=== PATIENT | male | born 1945 | race Caucasian/White ===

== ENCOUNTER 2019-07-01 10:36 | Outpatient (CLI) | payer MEDICARE, SELFPAY ==
[2019-07-01 13:49] LABS: Alanine Aminotransferase 37 U/L (4-50); Albumin Level 4.2 g/dL (3.5-5.1); Alkaline Phosphatase 97 U/L (38-126); Aspartate Amino Transferase 42 U/L (17-59); Bilirubin,Total 0.4 mg/dL (0.2-1.3); Blood Urea Nitrogen 14 mg/dL (9-20); Calcium 9.3 mg/dL (8.4-10.2); Carbon Dioxide 22 mmol/L (22-30); Chloride 96 mmol/L (98-107); Cholesterol 173 mg/dL (0-200); Estimated Glomerular Filt Rate > 60; Glucose 96 mg/dL (75-110); HDL Direct 96 mg/dL; Potassium 4.4 mmol/L (3.4-5.0); Sodium 131 mmol/L (137-145); Triglycerides 58 mg/dL (<150)
[2019-07-01 14:00] LABS: LDL Cholesterol Direct 82 mg/dL
[2019-07-01 14:18] LABS: Prostate Specific Antigen 1.7 ng/mL (< OR = 4.0)
== END 2019-07-01 10:37 | disposition home or self-care (01) ==
LOC: ANHWCLAB 10:43
PROVIDERS: PCP Internal Medicine; Visit Provider Internal Medicine
DX: E78.5 Hyperlipidemia, unspecified (principal); I10 Essential (primary) hypertension; Z12.5 Encounter for screening for malignant neoplasm of prostate; Z79.899 Other long term (current) drug therapy
CPT/HCPCS: 36415; 80053; 80061; 84153; G0103

== ENCOUNTER 2021-09-25 14:22 | Outpatient (CLI) | payer MEDICARE, SELFPAY ==
--- NOTE | ~2021-09-25 | CT_ITS ---
EXAMINATION: CT lung screening DATE: 09/25/2021 14:44 INDICATION: Personal history of nicotine dependence, current smoker with 128 pack year history TECHNIQUE: Computed tomography (CT) of the chest was performed without intravenous contrast. The dose -length product (DLP) was 83.46 mGy-cm. Automated exposure control and iterative reconstruction techn ique were employed. COMPARISON: 09/12/2016 FINDINGS: There is moderate emphysema. There is a stable 4 mm nodule of the right middle lobe. Calcif ied pulmonary nodules are consistent with old granulomatous disease. There is no pleural effusion or pneumothorax. The lungs are free of acute opacities. There is a chronic peripherally calcified mass o f the anterior mediastinum without significant change. There is moderate thoracic spondylosis. IMPRESSION: 1. Lung-RADS category 2: Benign appearance or behavior. Continue annual screening with noncontrast lo w-dose chest CT in 12 months. Reviewed, dictated and finalized at location A. IMPRESSION: 1. Lung-RADS category 2: Benign appearance or behavior. Continue annual screeni ng with noncontrast low-dose chest CT in 12 months.
== END 2021-09-25 14:23 | disposition home or self-care (01) ==
PROVIDERS: PCP Internal Medicine; Visit Provider Nurse Practitioner
DX: Z12.2 Encounter for screening for malignant neoplasm of respiratory organs (principal); Z87.891 Personal history of nicotine dependence
CPT/HCPCS: 71271

== ENCOUNTER 2022-03-21 09:06 | Outpatient (CLI) | payer MEDICARE, SELFPAY ==
[2022-03-21 13:20] LABS: Alanine Aminotransferase 36 U/L (6-50); Albumin Level 4.6 g/dL (3.5-5.1); Alkaline Phosphatase 116 U/L (38-126); Anion Gap 11 mmol/L (8-16); Aspartate Amino Transferase 92 U/L (17-59); Bilirubin,Total 0.8 mg/dL (0.2-1.3); Blood Urea Nitrogen 9 mg/dL (9-20); Calcium 8.7 mg/dL (8.4-10.2); Carbon Dioxide 20 mmol/L (22-30); Chloride 96 mmol/L (98-107); Cholesterol 180 mg/dL (0-200); Estimated Glomerular Filt Rate > 60; Glucose 77 mg/dL (65-110); HDL Direct 81 mg/dL; Potassium 4.2 mmol/L (3.4-5.0); Sodium 127 mmol/L (137-145); Triglycerides 65 mg/dL (<150)
[2022-03-21 13:32] LABS: LDL Cholesterol Direct 64 mg/dL
== END 2022-03-21 09:07 | disposition home or self-care (01) ==
LOC: ANHWCLAB 09:08
PROVIDERS: PCP Internal Medicine; Visit Provider Nurse Practitioner
DX: E78.5 Hyperlipidemia, unspecified (principal)
CPT/HCPCS: 36415; 80053; 80061

== ENCOUNTER 2022-09-30 09:11 | Outpatient (CLI) | payer MEDICARE, SELFPAY ==
[2022-09-30 21:33] LABS: LDL Cholesterol Direct 52 mg/dL
[2022-09-30 21:43] LABS: Alanine Aminotransferase 35 U/L (6-50); Albumin Level 4.2 g/dL (3.5-5.1); Alkaline Phosphatase 109 U/L (38-126); Anion Gap 6 mmol/L (8-16); Aspartate Amino Transferase 98 U/L (17-59); Bilirubin,Total 0.7 mg/dL (0.2-1.3); Blood Urea Nitrogen 9 mg/dL (9-20); Calcium 8.6 mg/dL (8.4-10.2); Carbon Dioxide 25 mmol/L (22-30); Chloride 96 mmol/L (98-107); Cholesterol 170 mg/dL (0-200); Estimated Glomerular Filt Rate > 60; Glucose 83 mg/dL (65-110); HDL Direct 110 mg/dL; Sodium 127 mmol/L (137-145); Triglycerides 48 mg/dL (<150)
[2022-09-30 21:52] LABS: Prostate Specific Antigen 61.6 ng/mL (< OR = 4.0)
== END 2022-09-30 09:12 | disposition home or self-care (01) ==
PROVIDERS: PCP Nurse Practitioner; Visit Provider Internal Medicine
DX: E78.5 Hyperlipidemia, unspecified (principal); I10 Essential (primary) hypertension; Z79.899 Other long term (current) drug therapy; Z12.5 Encounter for screening for malignant neoplasm of prostate
CPT/HCPCS: 36415; 80053; 80061; 84153; G0103

== ENCOUNTER 2022-10-24 07:58 | Outpatient (CLI) | payer MEDICARE, SELFPAY ==
--- NOTE | ~2022-10-24 | CT_ITS ---
EXAMINATION:CT lung screening DATE: 10/24/2022 08:29 INDICATION: Personal history of nicotine dependence. Current smoker with 90 pack year history. TECHNIQUE: Computed tomography (CT) of the chest was performed without intravenous contrast. Automate d exposure control and iterative reconstruction technique were employed. The dose-length product (DLP ) was 101.40 mGy-cm. COMPARISON: Chest CT 09/25/2021, 12/14/14, PET/CT 02/14/16 FINDINGS: There is moderate emphysema. There is a stable 4 mm nodule in right middle lobe. There is a calcified pleural plaque on the right. There is mild bronchiectasis in the inferior lungs. There is mucous plugging in right lower lobe. There is mild atelectasis in the lower lobes. Inferior lungs. No pleural effusion. The heart size is normal. There are coronary artery calcifications. No pericardial effusion. In the anterior mediastinum, there is a 3.0 x 1.8 cm mass with calcifications. There is mi ld bilateral gynecomastia. There is calcified atherosclerosis of the aorta and many of the other saima kj. There is a chronic 11 mm mass in left adrenal gland, likely an adenoma. There is mild thoracic spondylosis. IMPRESSION: 1. Lung-RADS category 2: Benign appearance or behavior. Continue annual screening with noncontrast lo w-dose chest CT in 12 months. 2. 3.0 cm anterior mediastinal mass, stable from 12/14/2014 and without increased activity on prior PE T, likely benign. The differential diagnosis includes germ cell tumor and thymoma. Reviewed, dictated and finalized at location A. IMPRESSION: 1. Lung-RADS category 2: Benign appearance or behavior. Continue annual screeni ng with noncontrast low-dose chest CT in 12 months. 2. 3.0 cm anterior mediastinal mass, stable from 12/14/2014 and without increase d activity on prior PET, likely benign. The differential diagnosis includes henny m cell tumor and thymoma.
--- NOTE | ~2022-10-24 | US_ITS ---
Limited Abdominal Sonogram: Real-time sonographic imaging of the right upper quadrant was performed. Clinical History: Abnormal findings of blood chemistry Findings: The liver appears normal with no evidence of mass lesion or bile duct dilatation. Main por christopher vein demonstrates normal direction of flow. The gallbladder is well distended, and appears normal with no evidence of gallstone or wall thickening. The common bile duct measures 5 mm. The pancreas is obscured by bowel gas shadowing. Impression: No significant abnormality seen. Reviewed, dictated and finalized at location M. Impression: No significant abnormality seen.
== END 2022-10-24 07:59 | disposition home or self-care (01) ==
PROVIDERS: PCP Nurse Practitioner; Visit Provider Nurse Practitioner
DX: R79.89 Other specified abnormal findings of blood chemistry (principal); Z87.891 Personal history of nicotine dependence
CPT/HCPCS: 71271; 76705

== ENCOUNTER 2023-04-16 09:21 | Outpatient (CLI) | payer MEDICARE, SELFPAY ==
[2023-04-16 13:34] LABS: Alanine Aminotransferase 34 U/L (6-50); Albumin Level 3.9 g/dL (3.5-5.1); Alkaline Phosphatase 120 U/L (38-126); Anion Gap 9 mmol/L (8-16); Aspartate Amino Transferase 70 U/L (17-59); Bilirubin,Total 0.5 mg/dL (0.2-1.3); Blood Urea Nitrogen 4 mg/dL (9-20); Calcium 8.5 mg/dL (8.4-10.2); Carbon Dioxide 25 mmol/L (22-30); Chloride 95 mmol/L (98-107); Cholesterol 135 mg/dL (0-200); Estimated Glomerular Filt Rate > 60; Glucose 90 mg/dL (65-110); HDL Direct 38 mg/dL; Potassium 4.1 mmol/L (3.4-5.0); Sodium 129 mmol/L (137-145); Triglycerides 65 mg/dL (<150)
[2023-04-16 13:45] LABS: LDL Cholesterol Direct 78 mg/dL
== END 2023-04-16 09:22 | disposition home or self-care (01) ==
LOC: ANHWCLAB 09:22
PROVIDERS: PCP Nurse Practitioner; Visit Provider Nurse Practitioner
DX: E78.5 Hyperlipidemia, unspecified (principal)
CPT/HCPCS: 36415; 80053; 80061

== ENCOUNTER 2023-04-26 19:16 | Inpatient (IN) | payer MEDICARE, SELFPAY ==
--- NOTE | ~2023-04-26 | XR_ITS ---
EXAMINATION: XR chest 2V Exam Date/Time: 04/26/2023 19:30 INTRANET SUPPORT HISTORY: SOB Comparison: 12/30/2017. RESULT: Lines, tubes, and devices: None. Lungs and pleura: Senescent and emphysematous change. No focal consolidation, pneumothorax, or effus ion. Cardiomediastinal silhouette: Stable. Calcified anterior mediastinal mass, unchanged. Other: No acute osseous or upper abdominal finding. IMPRESSION: No acute cardiopulmonary process. Reviewed, dictated and finalized at location K. ANET SUPPORT
--- NOTE | ~2023-04-26 | CT_ITS ---
EXAMINATION: CT brain wo con DATE: 04/27/2023 20:23 INDICATION: hyponatremia . TECHNIQUE: Computed tomography (CT) of the head was performed without intravenous contrast. The mA wa s adjusted according to patient size. Iterative reconstruction technique was employed. The dose-lengt h product was 681.00 mGy-cm. COMPARISON: None. FINDINGS: No acute intracranial hemorrhage or extra-axial fluid collection. No hydrocephalus, mass, or herniation. No acute ischemic infarct. Unremarkable dural venous sinus attenuation. No acute osseous abnormality. Smooth thinning of the left posterior frontal skull, with overlying sca lp thinning, resulting in a somewhat lentiform defect, likely related to remote procedure or trauma. Mucosal thickening and aerated secretions in the right maxillary sinus, the remaining aerated spaces are clear. Moderate atrophy and chronic white matter change. Atherosclerotic intracranial calcification. IMPRESSION: No acute intracranial process. Reviewed, dictated and finalized at location K. EMS MECHANIC
--- NOTE | ~2023-04-26 | CT_ITS ---
EXAMINATION: CTA chest PE protocol DATE: 04/26/2023 23:38 INDICATION: Shortness of breath TECHNIQUE: Computed tomography angiography (CTA) of the chest was performed with 100 mL Omnipaque-350 intravenous contrast timed to evaluate the pulmonary arteries. Coronal maximum intensity projection 3D-reconstructions were created by the technologist. The dose-length product (DLP) was 309.65 mGy-cm. Automated exposure control and iterative reconstruction technique were employed. COMPARISON: 10/24/2022 FINDINGS: The pulmonary arteries are well-opacified. No pulmonary embolism is identified. There is mo derate emphysema. There is a chronic 4 mm nodule of the right middle lobe. There is mild atelectasis in the lower lobes. No pleural effusion or pneumothorax. No pathologically enlarged thoracic lymph no manjula are identified. The heart size is normal. Again noted is a stable rim calcified mass of the anter ior mediastinum with differential as previously described. There is a healing anterolateral fracture of the right sixth rib. There is a new lytic lesion of T10 vertebral body on the right with depressio n of the mid superior endplate. IMPRESSION: 1. No pulmonary embolus identified. 2. Moderate emphysema. 3. New lytic lesion of the T10 vertebral body, possibly metastatic disease. Reviewed, dictated and finalized at location F. R AND DRAIN TECHNICIAN
[2023-04-26 19:19] VITALS: BP 105/56; PULSE 106; RESP 24; TEMP 36.5; O2SAT 100
--- NOTE | 2023-04-26 19:25 | ECG_ITS ---
Measurements Intervals [place] Rate: 100 P: 81 CA: 151 QRS: 72 QRSD: 95 T: 83 QT: 323 QTc: 418 Interpretive Statements SINUS TACHYCARDIA POSSIBLE ANTERIOR MYOCARDIAL INFARCTION , OF INDETERMINATE AGE Electronically Signed On 04-27-2023 10:26:52 AGRICULTURAL RESEARCH TECHNOLOGIST by Mando Baeza M.D.
[2023-04-26 20:43] LABS: Basophils Percent Auto 0.2 % (0.2-1.2); Eosinophils Absolute Auto 0.1 K/mm3 (0-0.3); Eosinophils Percent Auto 0.4 % (0-4.4); Hematocrit 27.3 % (42.0-52.0); Hemoglobin 9.2 g/dL (14.0-18.0); Immature Granulocyte Absolute 0.15 K/mm3 (0.00-0.031); Immature Granulocyte Percent A 1.1 % (0-0.5); Lymphocytes Absolute Auto 2.48 K/mm3 (0.9-3.2); Lymphocytes Percent Auto 17.8 % (18.3-44.2); Mean Corpuscular HGB Conc 33.7 g/dl (32-36); Mean Corpuscular Hemoglobin 30.8 pg (26-34); Mean Corpuscular Volume 91.3 fl (80-100); Monocytes Absolute Auto 0.7 K/mm3 (0.1-0.6); Monocytes Percent Auto 4.9 % (2.6-8.5); Neutrophils Absolute Auto 10.6 K/mm3 (1.3-6.7); Neutrophils Percent Auto 75.6 % (45.5-73.1); Platelet Count Result 274 k/mm3 (150-375); Red Blood Count 2.99 M/mm3 (4.6-6.20)
[2023-04-26 20:53] LABS: Alanine Aminotransferase 19 U/L (6-50); Albumin Level 3.5 g/dL (3.5-5.1); Alkaline Phosphatase 114 U/L (38-126); Anion Gap 7 mmol/L (8-16); Aspartate Amino Transferase 42 U/L (17-59); Bilirubin,Total 0.5 mg/dL (0.2-1.3); Blood Urea Nitrogen 42 mg/dL (9-20); Calcium 8.3 mg/dL (8.4-10.2); Carbon Dioxide 19 mmol/L (22-30); Chloride 97 mmol/L (98-107); Estimated CRCL calculation 93 ml/min; Estimated Glomerular Filt Rate > 60; Glucose 114 mg/dL (65-110); Potassium 4.3 mmol/L (3.4-5.0); Sodium 123 mmol/L (137-145)
[2023-04-26 21:19] VITALS: BP 102/54; PULSE 80; RESP 15; O2SAT 94
[2023-04-26] MEDS: ALBUTEROL SULFATE NEB 2.5 MG/3 ML INH 10 MG INHALATION (21:58)
[2023-04-26] MEDS: IPRATROPIUM BR 0.02% INH SOLN 0.5 MG/2.5 ML VIAL 1 MG INHALATION (21:58)
[2023-04-26] MEDS: SODIUM CHLORIDE 0.9% IV 1,000 ML 999 ML IV CONT (21:58)
[2023-04-26 22:04] LABS: Fractional Inspired Oxygen 21 %; HCO3 VBG 22.4 mEq/l (24.0-30.0); PO2 VBG 39.4 mmHg (35.0-45.0)
[2023-04-26 22:05] LABS: Device ROOM AIR; PCO2 VBG 30.4 mmHg (42.0-48.0); pH VBG 7.485 (7.300-7.400)
[2023-04-26 22:12] VITALS: PULSE 92; RESP 18
[2023-04-26 22:15] LABS: Appearance Urine Clear (Clear); Bilirubin Urine Negative (Negative); Blood Urine Negative (Negative); Color Urine Yellow (Yellow); Glucose Urine UA Negative (Negative); Ketones Urine Negative (Negative); Leukocyte Esterase Ur Negative LEU/UL (Negative); Nitrate Urine Negative (Negative); Protein Urine Negative (Negative); Specific Grav Ur 1.009 (1.001-1.035); Urobilinogen Urine 0.2 mg/dL (<2.0); pH Urine 6.5 (5.0-9.0)
[2023-04-26 22:20] LABS: Add Urine Microscopic? NO
[2023-04-26 22:28] LABS: Lactic Acid Reflex 0.9 mmol/L (0.7-2.0)
[2023-04-26 22:40] LABS: Troponin I < 0.012 ng/mL (0.000-0.034)
[2023-04-26 22:48] LABS: NT Pro B Type Natriuretic Pept 76 pg/mL (19.9-100)
[2023-04-26 22:49] LABS: Influenza A QL RT-PCR Negative (Negative); Influenza B QL RT-PCR Negative (Negative); RSV RNA, RT-PCR Negative (Negative); SARS-CoV-2 RNA PCR Negative (Negative)
[2023-04-26 23:00] VITALS: O2SAT 96
[2023-04-27] VITALS (16 sets, daily range): BP systolic 106–123; BP diastolic 52–72; PULSE 79–121; RESP 15–22; TEMP 36.2–36.4; O2SAT 95–100
--- NOTE | 2023-04-27 03:52 | ED.GENADULT ---
HPI - General Adult General Chief complaint: Shortness of Breath/Dyspnea Stated complaint: SOB Time Seen by Provider: 04/26/23 20:38 History of Present Illness HPI narrative: This is a 78-year-old male presenting to ED with 3 days of weakness, decreased oral intake and difficulty breathing. He has been staying worse for last 3 days. Patient states he was diagnosed with COPD 10 years ago but refused to take any medications. Patient denies fever chills chest pain abdominal pain nausea vomiting or diarrhea. He does note decreased oral intake although he cannot provide me a reason why. Denies any falls or trauma. Patient has a history of heavy alcohol use and quit cold turkey a month or 2 ago. Patient also notes asbestos exposure in the past. Related Data Home Medications Medication Instructions Recorded Confirmed aspirin 81 mg tablet,delayed 81 mg PO DAILY 12/20/20 10/09/22 release Allergies Allergy/AdvReac Type Severity Reaction Status Date / Time Penicillins Allergy Unknown hives Verified 10/09/22 07:32 [facility] Past Medical History Medical History COPD (chronic obstructive pulmonary disease) Family History Family History Sibling Hypertension Mother Family history of chronic obstructive pulmonary disease Father Family history of lung cancer Social History Social History Smoking packs per day: 1.5 Smoking cigarettes per day: 30.0 Years smoked: 64 Smoking pack-years: 96.00 Smoking status: Current every day smoker Tobacco type: cigarettes Second hand tobacco smoke exposure: Yes Alcohol intake: current Drinks per week: 70 Alcohol use details: beer Substance use: never Substance use type: does not use Lack of Transportation: No Lack of Food: Never True Current Housing: I Have Housing Concerned About Future Housing: No Difficulty Paying Gas/Electric Bills: No Difficulty Paying for Meds: No Currently Unemployed: No Education: Bachelor's Degree Difficulty w/ Childcare or Family Care: No Exam Narrative: APPEARANCE: No apparent distress. Head: atraumatic. EYES: EOMI, NOSE: Atraumatic NECK: Trachea midline RESPIRATORY: tachypneic, scattered expiratory wheezing CARDIOVASCULAR: RRR, ABDOMINAL: Non-distended, soft nontender MUSCULOSKELETAl: No obvious deformities NEURO: Alert. Moving 4/4 extremities SKIN:: Warm, dry. Normal color PSYCHIATRIC: Normal affect Course Vital Signs Vital signs: Vital Signs Temperature 97.7 F 04/26/23 19:19 Pulse Rate 106 H 04/26/23 19:19 Respiratory Rate 24 H 04/26/23 19:19 Blood Pressure 105/56 L 04/26/23 19:19 Pulse Oximetry 100 04/26/23 19:19 Oxygen Delivery Room Air 04/26/23 19:19 Temperature 97.7 F 04/26/23 19:19 Pulse Rate 97 04/27/23 03:17 Respiratory Rate 15 04/27/23 03:17 Blood Pressure 106/52 L 04/27/23 03:17 Pulse Oximetry 97 04/27/23 03:17 Oxygen Delivery Room Air 04/26/23 23:00 Medical Decision Making MDM Narrative Medical decision making narrative: -Course: 78-year-old male presenting with 3 days of shortness of breath and weakness. Patient was given breathing treatments with some improvement in his dyspnea. Broad workup was ordered which showed a hemoglobin of 9.2 with a previous hemoglobin of 15.2 in 2019. He also had an elevated BUN and after questioning the patient again he said he did have a dark sticky bowel movement yesterday which may represent melena. He is hemoccult positive. Anemia lab work ordered to evaluate for iron deficiency anemia versus anemia of chronic alcohol use. Symptomatic anemia would explain his symptoms. The rest of his workup unremarkable. Patient will be admitted for further management. -DDX includes but is not limited to: Viral illness, COPD before exacerbation, dehyd
--- NOTE | 2023-04-27 04:12 | PM.IMHP ---
H&P: HPI History of Present Illness Date/Time: 04/27/23 04:12 Chief Complaint: Generalized weakness Narrative: This is a 78-year-old male with past medical history significant for hypertension, tobacco dependence, alcohol dependence, patient has been sober for 5 weeks used to drink 2+ 30 pack beer a week, smokes 1 and pack of cigarettes most days for 60+ years. Patient presents to the emergency room due to generalized weakness, fatigue, low stamina, shortness of breath, had episode of melena, denies hematemesis denied bright red blood per rectum denies coffee-ground emesis states that it does not have much of an appetite pretty much eats canned food on most days. Preliminary workup in emergency room was significant for hemoglobin of 9, hematocrit 27, sodium 127, chloride 97 bicarb 19 EXAMINATION:? XR chest 2V Exam Date/Time:? 04/26/2023 19:30 MARKETING STRATEGY LEAD HISTORY: SOB ? Comparison:? 12/30/2017. RESULT: Lines, tubes, and devices:? None. Lungs and pleura:? Senescent and emphysematous change. No focal consolidation, pneumothorax, or effusion. Cardiomediastinal silhouette:? Stable. Calcified anterior mediastinal mass, unchanged. Other:? No acute osseous or upper abdominal finding. ? IMPRESSION: No acute cardiopulmonary process. EXAMINATION: CTA chest PE protocol DATE: 04/26/2023 23:38 INDICATION: Shortness of breath TECHNIQUE: Computed tomography angiography (CTA) of the chest was performed with 100 mL Omnipaque-350 intravenous contrast timed to evaluate the pulmonary arteries. Coronal maximum intensity projection 3D-reconstructions were created by the technologist. The dose-length product (DLP) was 309.65 mGy-cm. Automated exposure control and iterative reconstruction technique were employed. COMPARISON: 10/24/2022 FINDINGS: The pulmonary arteries are well-opacified. No pulmonary embolism is identified. There is moderate emphysema. There is a chronic 4 mm nodule of the right middle lobe. There is mild atelectasis in the lower lobes. No pleural effusion or pneumothorax. No pathologically enlarged thoracic lymph nodes are identified. The heart size is normal. Again noted is a stable rim calcified mass of the anterior mediastinum with differential as previously described. There is a healing anterolateral fracture of the right sixth rib. There is a new lytic lesion of T10 vertebral body on the right with depression of the mid superior endplate. IMPRESSION: 1. No pulmonary embolus identified. 2. Moderate emphysema. 3. New lytic lesion of the T10 vertebral body, possibly metastatic disease. Review of Systems Review of Systems: Shortness of breath, fatigue, poor appetite, melena. Constitutional: Constitutional: Denies chills, Reports fatigue, Denies fever(s), Reports poor appetite and Reports weakness Eyes: Eyes: Denies change in vision ENT: Denies dysphagia and Denies odynophagia Cardiovascular: Cardiovascular: Denies chest pain, Denies radiating jaw, neck or arm pain, Denies palpitations and Reports dyspnea Respiratory: Respiratory: Denies chest congestion and Reports cough Gastrointestinal: Gastrointestinal: Denies abdominal pain, Reports melena, Denies hematochezia, Denies coffee ground emesis, Denies dyspepsia, Denies heartburn, Denies nausea and Denies vomiting Genitourinary: Genitourinary: Denies flank pain Musculoskeletal: Musculoskeletal: Denies back pain Integumentary/Breasts: Skin/Breast: Denies rash Neurologic: Denies vertigo, Denies dizziness, Denies focal weakness and Denies Sensory deficit (Neuro) Psychiatric: Psychiatric: Reports no additional psychiatric complaints and Reports as per HPI Endocrine: Endocrine: Denies cold intolerance, Denies fatigue, Denies flushing, Denies heat intolerance, Denies polyphagia, Denies polydipsia and Denies palpitations Hematologic/Lymphatic: Hematologic/Lymphatic: Reports no additional hematologic/lymphatic complaints and Reports as per HPI Allergic/Immunologic: Allerg
--- NOTE | 2023-04-27 04:29 | ECG_ITS ---
Measurements Intervals [place] Rate: 93 P: 85 DE: 150 QRS: 28 QRSD: 97 T: 79 QT: 361 QTc: 450 Interpretive Statements SINUS RHYTHM SEPTAL MYOCARDIAL INFARCTION , OF INDETERMINATE AGE Electronically Signed On 04-27-2023 10:32:04 REINFORCED IRONWORKER by Mando Baeza M.D.
[2023-04-27 04:52] LABS: Transferrin 179 mg/dL (206-381)
[2023-04-27 04:58] LABS: Troponin I < 0.012 ng/mL (0.000-0.034)
[2023-04-27 04:59] LABS: Iron 59 ug/dL (49-181)
[2023-04-27 05:08] LABS: Percent Iron Saturation 24 % (20-50)
[2023-04-27 05:51] LABS: Folic Acid 7.9 ng/mL (2.76->20)
--- NOTE | 2023-04-27 07:00 | PC.NURSE ---
Pt brought up to the floor at 06:. A&Ox4. Pt ambulates independently at home, lives alone. NPO diet. Sister is the closest family pt reports. Call light within reach, pt comfortable, no c/o pain. Pt is on room air, he is on telemetry. Medication confirmed with the pt. No further questions.
[2023-04-27 07:53] LABS: Hematocrit 23.4 % (42.0-52.0)
[2023-04-27 07:57] LABS: Anion Gap 7 mmol/L (8-16); Blood Urea Nitrogen 28 mg/dL (9-20); Calcium 8.4 mg/dL (8.4-10.2); Carbon Dioxide 19 mmol/L (22-30); Chloride 103 mmol/L (98-107); Estimated CRCL calculation 81 ml/min; Estimated Glomerular Filt Rate > 60; Glucose 155 mg/dL (65-110); Potassium 3.8 mmol/L (3.4-5.0); Sodium 129 mmol/L (137-145)
[2023-04-27 09:08] LABS: Urea Random Urine 797 MG/DL
--- NOTE | 2023-04-27 10:51 | PM.IMPN ---
Progress Note: A&P Assessment and Plan (1) Anemia: Code(s): D64.9 - Anemia, unspecified Status: Acute Assessment and Plan: Heme positive stools in ER Iron studies and b12/folate unremarkable GI consult, ice chips and meds only until seen by GI Admit Hgb 9.2, recheck after IV fluids 8.0 IV pantoprazole BID (2) Hyponatremia: Code(s): E87.1 - Hypo-osmolality and hyponatremia Status: Chronic Assessment and Plan: Hyponatremia--> 123 on admit up to 129 with IV fluid bolus. Urine labs for sodium/creatinine/urea/osmolality drawn and Neprhology consulted. (3) Lytic bone lesions on xray: Code(s): M89.9 - Disorder of bone, unspecified Status: Acute Assessment and Plan: Lytic lesion T10 vertebral body, possibly metastatic disease per Radiology--will order abdomen/pelvis CT later, patient had contrast load on 04/26 @2338. (4) COPD (chronic obstructive pulmonary disease): Code(s): J44.9 - Chronic obstructive pulmonary disease, unspecified Status: Acute Assessment and Plan: Not actively wheezing Not on meds at home Improved after steroids and neb in ER, patient reports shortness of breath at home, none currently (5) Benign essential hypertension: Code(s): I10 - Essential (primary) hypertension Status: Chronic Assessment and Plan: Blood pressures on lower side, hold antihypertensives for now (6) PVD (peripheral vascular disease): Code(s): I73.9 - Peripheral vascular disease, unspecified Status: Chronic Assessment and Plan: Stable Plan Diet: NPO except ice chips and oral meds until after GI consult VTE prophylaxis: SCD, avoid pharmacologic due to concern for GI bleed GI prophylaxis: IV pantoprazole BID Code Status: Full Code Disposition: anticipate return home after acute illnesses addressed Time Spent With Patient Time with patient: 25 - 35 minutes Subjective Date/time seen: 04/27/23 10:51 Interval history: From previous chart: This is a 78-year-old male with past medical history significant for hypertension, tobacco dependence, alcohol dependence, patient has been sober for 5 weeks used to drink 2+ 30 pack beer a week, smokes 1 and pack of cigarettes most days for 60+ years.? Patient presents to the emergency room due to generalized weakness, fatigue, low stamina, shortness of breath, had episode of melena, denies hematemesis denied bright red blood per rectum denies coffee-ground emesis states that it does not have much of an appetite pretty much eats canned food on most days.? Preliminary workup in emergency room was significant for hemoglobin of 9, hematocrit 27, sodium 127, chloride 97 bicarb 19 04/27: Patient reports he stopped drinking on March 11, 2023. He reported fatigue and shortness of breath at home for a few days leading to him calling EMS to come to hospital yesterday. In ER he was found to have wheezing, lower Hgb than prior baseline and heme positive stools. Patient admitted for GI consult. 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 Review of Systems Review of Systems: Shortness of breath, fatigue, poor appetite, unsteadiness on feet All systems reviewed & are unremarkable except as noted in HPI and below Exam Narrative: Exam Narrative: Well developed well-nourished in no acute distress Skin is warm and dry without rash Head normocephalic atraumatic Eyes normal sclerae and conjunctivae Mouth normal lips teeth and gums Neck no nodes no thyromegaly no carotid bruits Axillae no nodes Back no CVA tenderness Lungs symmetric and clear to auscultation and percussion Heart regular rate and rhythm without rub or gallop Abdomen bowel sounds positive soft nontender, no HSM, masses, or bruits. Extremities no cyanosis, clubbing, or edema Pulses 2+ equal in radial arteries Psychological not anxious or depressed Neuro alert and
[2023-04-27] MEDS: PRAVASTATIN SODIUM 20 MG TABLET PO (11:03)
[2023-04-27] MEDS: PANTOPRAZOLE SODIUM IV 40 MG VIAL IV PUSH ×2 (11:03→20:58)
[2023-04-27] MEDS: THIAMINE HCL 200 MG/2 ML VIAL 100 MG IV PUSH (11:03)
[2023-04-27 12:01] LABS: Creatinine Urine 31.7 mg/dL
[2023-04-27 12:09] LABS: Sodium Urine Random 25 meq/L
--- NOTE | 2023-04-27 12:50 | PM.CNNEP ---
Assessment and Plan Assessment and plan (1) Hyponatremia: Code(s): E87.1 - Hypo-osmolality and hyponatremia Status: Resolved Assessment and Plan: the patient has hyponatremia. Looking back in the records it looks like he has had sodiums that have been low almost every time it has been checked going back to 2012. Seen most likely this may be related to his water drinking and alcohol use. The sodium is lower now than it was before. This may be related to his water drinking plus not eating very well the last couple of days. There are a few issues going on that need to be evaluated though. 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 Possibly this is related to his prostatic nodule that he discussed or possibly related to undiagnosed myeloma?. There is a diagnosis of a pulmonary lesion also but I am not sure of the story behind this. I will also check a SPEP, TSH and cortisol to make sure there is nothing else going on. his sodium is trending toward correcting too quickly. he says he is making a lot of urine. He may have something similar to beer drinkers potomania except that it is water instead of beer. I will give him DDAVP and repeat the sodium in a little bit. He is NPO now for a procedure and I will given D5W. (2) COPD (chronic obstructive pulmonary disease): Code(s): J44.9 - Chronic obstructive pulmonary disease, unspecified Status: Acute Assessment and Plan: He has a smoking history. He is to see Dr. Landrum in the past. (3) Benign essential hypertension: Code(s): I10 - Essential (primary) hypertension Status: Acute Assessment and Plan: He has hypertension. His blood pressure is under good control (4) Elevated PSA: Code(s): R97.20 - Elevated prostate specific antigen [PSA] Status: Acute Assessment and Plan: this may be related to the T10 metastatic lesion (5) Anemia: Code(s): D64.9 - Anemia, unspecified Status: Acute Assessment and Plan: hemoglobin is 8. He is getting this evaluated. History of Present Illness Reason for Consult Consult date: 04/27/23 Chief Complaint Chief complaint: Failure to Thrive History of Present Illness Narrative: Darryl is a very pleasant 78-year-old gentleman who has multiple medical problems including a past history of tobacco dependence but quit a while ago, alcohol dependence and quit 6 weeks ago, hypertension, COPD, and a prostate mass which was recently diagnosed. The patient says that about 6 weeks ago he decided to quit drinking. He was drinking about 60 beers in a week on at but sometimes would drink at a higher rate. This had been going on for decades. Six weeks ago he just decided to stop drinking and so did. He apparently did not have any withdrawal symptoms and has done okay since then. since then he has been drinking lots of water. In the last 2 or 3 days the patient has not had much to eat. He has continued to drink the water. He is not changed any his medications. He began to feel weak over the last day or 2 and so came to the emergency room and was found to have a sodium of 123, significant anemia, and so was admitted. The patient denies any narcotics, antidepressants, proton pump inhibitors,or diuretics. he does now have a history of cancer other than skin cancer on his scalp. However he did mention that he had a mass in his prostate which a urologist wanted to biopsy but he refused. He also was found to have a pulmonary nodule on chest x-ray this admission. the patient sees Nik Huff in the office every 6 months and thinks he is up-to-date with his cancer screening, however I do not see any indication that he has had a colonoscopy. Patient has never had a stroke or anything to suggest a brain tumor. He has COPD but no other lung abnormalities. Review of Systems Constitutional: Constitutional: Reports no additio
--- NOTE | 2023-04-27 13:12 | WPDGICN ---
Assessment and Plan Assessment and plan (1) Anemia: Code(s): D64.9 - Anemia, unspecified Status: Acute Assessment and Plan: his hemoglobin which was 15.2 in September is now down to 8.0. He has had black tarry stools for the last couple of days. Denies using NSAIDs, but does take an aspirin tablet 81 mg each morning. He has no history of ulcers. He denies heartburn or dysphagia. (2) Alcohol abuse: Code(s): F10.10 - Alcohol abuse, uncomplicated Status: Acute Assessment and Plan: He has never been told that he had liver disease due to alcohol use. (3) COPD (chronic obstructive pulmonary disease): Code(s): J44.9 - Chronic obstructive pulmonary disease, unspecified Status: Acute Assessment and Plan: This probably contributes to his chronic shortness of breath. He usually runs hemoglobin around 15 and now it is about half that which also exacerbates his breathing. (4) Dehydration determined by examination: Code(s): E86.0 - Dehydration Status: Acute Assessment and Plan: he is thirsty. or mucosa is dry. He has been NPO all day and I noticed that he does not have IV fluids. This probably explains his increase in BUN from 4 on April 07- on admission. Today it is 28 I will start him on a clear liquid diet and start IV fluids. (5) Transaminitis: Code(s): R74.01 - Elevation of levels of liver transaminase levels Status: Acute Assessment and Plan: AST which was 72 weeks ago is now down to normal. It actually was higher last September. This is likely due to his alcohol abuse Plan Rehydrate EGD in the morning continue to encourage abstinence from alcohol transfusion if hemoglobin drops to 7 or lower. GI Consult Note Consult date/time: 04/27/23 13:12 HPI: Darryl Murphy is a 78 year old male who was admitted yesterday to the emergency room because of fatigue. With walking around he would become quite short of breath. He lost his stamina. He also has noticed black stools that were like tar. The last few days when he wiped himself after a bowel movement he would need to wipe repeatedly as of black material was oozing out. He has not had abdominal pain he denies nausea vomiting. His appetite is so-so. He does not eat well. He admits to not preparing foods rather eating whenever he has on hand such as something in a can. He also admits to drinking alcohol regularly but apparently had stopped a couple weeks ago. He states that he has had a colonoscopy in the past about 5 years ago. He denies chronic heartburn denies dysphagia and denies generalized abdominal pain. Review of Systems Review of Systems: All systems reviewed & are unremarkable except as noted in HPI and below PMFSH Past Medical History Medical History COPD (chronic obstructive pulmonary disease) Family History Family History Sibling Hypertension Mother Family history of chronic obstructive pulmonary disease Father Family history of lung cancer Social History Social History Smoking packs per day: 1.5 Smoking cigarettes per day: 30.0 Years smoked: 60 Smoking pack-years: 90.00 Smoking status: Current every day smoker Tobacco type: cigarettes Second hand tobacco smoke exposure: Yes Alcohol intake: former Drinks per week: 70 Alcohol use details: beer Substance use: current Substance use type: does not use Lack of Transportation: No Lack of Food: Never True Current Housing: I Have Housing Concerned About Future Housing: No Difficulty Paying Gas/Electric Bills: No Difficulty Paying for Meds: No Currently Unemployed: No Education: Decline to Answer Difficulty w/ Childcare or Family Care: No Spiritual care concerns: No Meds Home Medication
[2023-04-27] MEDS: IPRATROPIUM BR 0.02% INH SOLN 0.5 MG/2.5 ML VIAL INHALATION ×2 (13:47→19:19)
[2023-04-27] MEDS: ALBUTEROL SULFATE NEB 2.5 MG/3 ML INH INHALATION ×2 (13:47→19:19)
[2023-04-27] MEDS: DESMOPRESSIN ACETATE 4 MCG/ML AMP 2 MCG IV PUSH (14:11)
[2023-04-27 14:35] LABS: Anion Gap 5 mmol/L (8-16); Blood Urea Nitrogen 21 mg/dL (9-20); Calcium 8.5 mg/dL (8.4-10.2); Carbon Dioxide 19 mmol/L (22-30); Chloride 105 mmol/L (98-107); Estimated CRCL calculation 95 ml/min; Estimated Glomerular Filt Rate > 60; Glucose 116 mg/dL (65-110); Potassium 4.2 mmol/L (3.4-5.0); Sodium 129 mmol/L (137-145)
[2023-04-27 15:05] LABS: Cortisol Random 1.87 ug/dL
[2023-04-27 15:52] LABS: Thyroid Stimulating Hormone Reflex 0.561 uIU/mL (0.465-4.68)
[2023-04-27] MEDS: DEXTROSE 5% 1,000 ML 1,000 ML 75 ML IV CONT (16:35)
[2023-04-27 19:21] LABS: Sodium 128 mmol/L (137-145)
[2023-04-27 19:57] LABS: Hematocrit 20.1 % (42.0-52.0); Hemoglobin 6.8 g/dL (14.0-18.0)
[2023-04-27] MEDS: oxyBUTYnin CHLORIDE 5 MG TABLET PO (20:58)
[2023-04-27] MEDS: SODIUM CHLORIDE 0.45% 1,000 ML 50 ML IV CONT (21:05)
[2023-04-27] MEDS: SODIUM CHLORIDE 0.9% IV 250 ML 30 ML IV CONT (21:05)
[2023-04-27] MEDS: TUBING, BLOOD PLUM PUMP TUBING 1 EACH XX (21:06)
[2023-04-27 23:27] LABS: Creatinine Urine 32.4 mg/dL; Total Protein Urine Random 7 mg/dL; Ur Ttl Prot Creatinine Ratio 0.22 mg/mg (0-0.20)
[2023-04-28] VITALS (23 sets, daily range): BP systolic 88–144; BP diastolic 40–85; PULSE 57–82; RESP 12–18; TEMP 35.9–36.9; O2SAT 94–99
[2023-04-28] MEDS: IPRATROPIUM BR 0.02% INH SOLN 0.5 MG/2.5 ML VIAL INHALATION ×2 (01:38→09:08)
[2023-04-28] MEDS: ALBUTEROL SULFATE NEB 2.5 MG/3 ML INH INHALATION ×2 (01:38→09:08)
[2023-04-28 06:53] LABS: Hematocrit 28.2 % (42.0-52.0); Hemoglobin 9.5 g/dL (14.0-18.0); Mean Corpuscular HGB Conc 33.7 g/dl (32-36); Mean Corpuscular Hemoglobin 31.1 pg (26-34); Mean Corpuscular Volume 92.5 fl (80-100); Mean Platelet Volume 8.2 fl (7.4-10.4); Platelet Count Result 181 k/mm3 (150-375); Red Blood Count 3.05 M/mm3 (4.6-6.20); Red Cell Distribution Width 12.6 % (11.5-14.5)
[2023-04-28 07:16] LABS: Anion Gap 4 mmol/L (8-16); Blood Urea Nitrogen 16 mg/dL (9-20); Calcium 8.1 mg/dL (8.4-10.2); Carbon Dioxide 23 mmol/L (22-30); Chloride 102 mmol/L (98-107); Estimated CRCL calculation 81 ml/min; Estimated Glomerular Filt Rate > 60; Glucose 86 mg/dL (65-110); Potassium 3.9 mmol/L (3.4-5.0); Sodium 129 mmol/L (137-145)
[2023-04-28 08:08] LABS: Basophils Percent Auto 0.2 % (0.2-1.2); Eosinophils Percent Auto 0.2 % (0-4.4); Hematocrit 25.5 % (42.0-52.0); Hemoglobin 9.4 g/dL (14.0-18.0); Immature Granulocyte Absolute 0.07 K/mm3 (0.00-0.031); Immature Granulocyte Percent A 0.7 % (0-0.5); Lymphocytes Absolute Auto 1.59 K/mm3 (0.9-3.2); Lymphocytes Percent Auto 16.7 % (18.3-44.2); Mean Corpuscular HGB Conc 36.9 g/dl (32-36); Mean Corpuscular Hemoglobin 35.3 pg (26-34); Mean Corpuscular Volume 95.9 fl (80-100); Mean Platelet Volume 8.5 fl (7.4-10.4); Monocytes Absolute Auto 0.7 K/mm3 (0.1-0.6); Monocytes Percent Auto 6.9 % (2.6-8.5); Neutrophils Absolute Auto 7.2 K/mm3 (1.3-6.7); Neutrophils Percent Auto 75.3 % (45.5-73.1); Platelet Count Result 187 k/mm3 (150-375); Red Blood Count 2.66 M/mm3 (4.6-6.20); White Blood Count 9.5 K/mm3 (4.5-10.0)
[2023-04-28 08:11] LABS: Alanine Aminotransferase 17 U/L (6-50); Albumin Level 3.1 g/dL (3.5-5.1); Alkaline Phosphatase 124 U/L (38-126); Aspartate Amino Transferase 40 U/L (17-59); Bilirubin,Total 0.8 mg/dL (0.2-1.3)
[2023-04-28] MEDS: PANTOPRAZOLE SODIUM IV 40 MG VIAL IV PUSH ×2 (10:00→20:50)
[2023-04-28] MEDS: THIAMINE HCL 200 MG/2 ML VIAL 100 MG IV PUSH (10:00)
[2023-04-28] MEDS: PRAVASTATIN SODIUM 20 MG TABLET PO (10:00)
--- NOTE | 2023-04-28 12:20 | PM.IMPN ---
Progress Note: A&P Assessment and Plan (1) Anemia: Code(s): D64.9 - Anemia, unspecified Status: Acute Assessment and Plan: Admit to regular medical floor Iron studies pending GI consult 04/28: s/p 2 units PRBC overnight, now Hgb 9.5. GI planning EGD today. (2) COPD (chronic obstructive pulmonary disease): Code(s): J44.9 - Chronic obstructive pulmonary disease, unspecified Status: Acute Assessment and Plan: Not actively wheezing Not on meds at home (3) PVD (peripheral vascular disease): Code(s): I73.9 - Peripheral vascular disease, unspecified Status: Chronic Assessment and Plan: Unchanged (4) Benign essential hypertension: Code(s): I10 - Essential (primary) hypertension Status: Chronic Assessment and Plan: Restart home meds as needed Plan EGD today Time Spent With Patient Time with patient: 25 - 35 minutes Subjective Date/time seen: 04/28/23 12:20 Interval history: From previous chart: This is a 78-year-old male with past medical history significant for hypertension, tobacco dependence, alcohol dependence, patient has been sober for 5 weeks used to drink 2+ 30 pack beer a week, smokes 1 and pack of cigarettes most days for 60+ years.? Patient presents to the emergency room due to generalized weakness, fatigue, low stamina, shortness of breath, had episode of melena, denies hematemesis denied bright red blood per rectum denies coffee-ground emesis states that it does not have much of an appetite pretty much eats canned food on most days.? Preliminary workup in emergency room was significant for hemoglobin of 9, hematocrit 27, sodium 127, chloride 97 bicarb 19 04/27: Patient reports he stopped drinking on March 11, 2023. He reported fatigue and shortness of breath at home for a few days leading to him calling EMS to come to hospital yesterday. In ER he was found to have wheezing, lower Hgb than prior baseline and heme positive stools. Patient admitted for GI consult. 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 04/28: Yesterday afternoon Hgb dropped to 6.8 on redraw which likely indicated active bleeding. He received 2 units PRBCs overnight. Today patient reported that he felt rested and well this morning. Hyponatremia seems stable at 129. Patient NPO since 0900 for EGD this afternoon. Patient may also require colonoscopy, either inpatient or outpatient, due to findings of lytic lesion on T10 vertebrae suspicious for metastasis. Patient denies any difficulty breathing today. Review of Systems Review of Systems: All systems reviewed & are unremarkable except as noted in HPI and below Exam Narrative: Exam Narrative: Well developed well-nourished in no acute distress Skin is warm and dry without rash Head normocephalic atraumatic Eyes normal sclerae and conjunctivae Mouth normal lips teeth and gums Neck no nodes no thyromegaly no carotid bruits Axillae no nodes Back no CVA tenderness Lungs symmetric and clear to auscultation and percussion Heart regular rate and rhythm without rub or gallop Abdomen bowel sounds positive soft nontender, no HSM, masses, or bruits. Extremities no cyanosis, clubbing, or edema Pulses 2+ equal in radial arteries Psychological not anxious or depressed Neuro alert and oriented x3 motor 5/5 cranial nerves 2-12 intact Objective Data Vital Signs Vital Signs: Vital Signs - 24 hr 04/27/23 13:48 04/27/23 13:50 04/27/23 13:59 Temperature Pulse Rate 88 91 Respiratory Rate 18 18 Blood Pressure Pulse Oximetry 96 Oxygen Delivery Room Air 04/27/23 14:00 04/27/23 16:00 04/27/23 19:19 Temperature 36.3 C L Pulse Rate 91 79 85 Respiratory Rate 18 18 Blood Pressure 106/58 L Pulse Oximetry 100 Oxygen Delivery 04/27/23 19:49 04/27/23 21:10 04/27/23 20:00 Temperature 36.2 C L Pulse Rate 87 86 Resp
--- NOTE | 2023-04-28 12:22 | PM.PNNEP ---
Progress Note: A&P Assessment and Plan (1) Hyponatremia: Code(s): E87.1 - Hypo-osmolality and hyponatremia Status: Chronic Assessment and Plan: improvement noted acute on chronic seems to run ~ 129 - 134 in the last few years however, he has had low sodiums as far back as 2012.... suspect chronic component due to excess water intake + alcohol acute component possible due to water drinking and no eating very well for the last few days however, other factors may be playing a role.... possible malignancy (lytic lesion on T12) pulmonary lesion TSH and cortisol okay SPEP and UPEP pending history of COPD follow trend of repeat sodium levels (2) Benign essential hypertension: Code(s): I10 - Essential (primary) hypertension Status: Chronic Assessment and Plan: reasonable control follow trend of hemodynamics (3) Anemia: Code(s): D64.9 - Anemia, unspecified Status: Acute Assessment and Plan: noted drop in H/H Gastroenterology following EGD later today Will continue to follow. Subjective Date/time seen: 04/28/23 12:22 Interval history: Follow-up for acute on chronic hyponatremia. Chart reviewed -- assuming care from Dr. Jacobs; PRBC transfusion yesterday due to low H/H with noted plan for EGD this afternoon; sodium relatively stable at this time with current interventions/therapy; no apparent distress. Exam Narrative: General: elderly but WD/WN male in NAD Heart: normal S1 and S2; no rub Lungs: clear to auscultation Abdomen: soft, nontender, nondistended, positive bowel sounds Extremities: no cyanosis or clubbing; no edema Skin: warm and dry Objective Data Vital Signs Vital Signs: Vital Signs Temp Pulse Resp BP Pulse Ox O2 Del Method 04/28/23 16:40 97.0 F L 71 12 144/76 H 94 04/28/23 14:00 96.9 F L 69 18 141/75 H 96 04/28/23 14:09 70 13 88/40 L 99 Room Air 04/28/23 14:02 72 15 95/56 L 97 Room Air 04/28/23 13:36 97.3 F L 73 18 125/62 97 Room Air 04/28/23 12:00 69 04/28/23 10:00 57 L 04/28/23 09:11 71 16 04/28/23 09:11 96 Room Air 04/28/23 04:00 62 04/28/23 04:23 97.5 F L 73 16 132/73 97 04/28/23 04:04 97.8 F 60 16 126/60 99 04/28/23 00:00 73 04/27/23 20:00 80 04/28/23 03:04 97.4 F L 71 16 119/63 97 04/28/23 02:47 98.4 F 75 16 110/67 97 04/28/23 02:16 97.5 F L 71 16 109/56 L 97 04/28/23 01:52 80 18 04/28/23 01:38 82 18 04/28/23 01:28 97.7 F 64 18 109/58 L 99 04/28/23 00:28 97.5 F L 71 18 114/63 96 04/28/23 00:09 97.9 F 70 16 106/56 L 98 04/27/23 20:00 Room Air 04/27/23 21:10 97.2 F L 86 22 H 110/53 L 95 04/27/23 19:49 87 18 04/27/23 19:19 85 18 Intake/Output Intake/Output: Intake & Output 04/25/23 04/26/23 04/27/23 04/28/23 23:59 23:59 23:59 23:59 Intake Total 9720 470 2474 Output Total 800 1500 Balance 1000 -20 300 Meds/Results Medications: Active Medications Generic Name Dose Route Start Last Admin Trade Name Freq PRN Reason Stop Dose Admin Albuterol 2.5 mg 04/28/23 20:00 Albuterol Sulfate Neb 2.5 Mg/3 Ml Inh INHALATION Q6HRT [facility] Ipratropium [place] 0.5 mg 04/28/23 20:00 Ipratropium Br 0.02% Inh Soln 0.5 Mg/2.5 Ml Vial INHALATION Q6HRT [facility] Radiology Results: ITS Impressions Chest X-Ray 04/26/23 20:13 IMPRESSION: No acute cardiopulmonary process. Chest CTA 04/27/23 09:36 IMPRESSION: 1. No pulmonary embolus identified. 2. Moderate emphysema. 3. New lytic lesion of the T10 vertebral body, possibly metastatic disease. Head CT 04/27/23 20:56 IMPRESSION: No acute intracranial process. Labs Labs: Laboratory Tests 04/28/23 06:39 04/28/23 06:39 Microbiology 04/26/23 22:03 Blood Blood Culture - Preliminary 04/26/23
[2023-04-28] MEDS: LACTATED RINGERS 1,000 ML 150 ML IV CONT (13:33)
--- NOTE | 2023-04-28 13:44 | WPDANESEPPF ---
Anes - Initial Pre Proc Eval Procedure: Operation Date: 04/28/23 14:00 Proposed Procedures p Esophagogastroduodenoscopy - Dilip Castro MD Date/Time: 04/28/23 13:44 Surgeon: Redd Chopra MD Pre Op Diagnosis: Failure to Thrive Patient Data Age: 78 Gender: M Height: 1.8 m Weight: 65.1 kg Last Vital Signs Temp 97.3 F L 04/28/23 13:36 Pulse 73 04/28/23 13:36 Resp 18 04/28/23 13:36 BP 125/62 04/28/23 13:36 Pulse Ox 97 04/28/23 13:36 O2 Del Method Room Air 04/28/23 13:36 Allergies Allergy/AdvReac Type Severity Reaction Status Date / Time Penicillins Allergy Unknown hives Verified 04/28/23 13:34 Home Medications Medication Instructions Recorded Confirmed Type aspirin 81 mg tablet,delayed 81 mg PO DAILY 12/20/20 04/27/23 History release triamcinolone acetonide 0.1 % 1 applic topical BID #15 grams 12/25/21 04/27/23 Rx topical cream cilostazol 100 mg tablet 100 mg PO BID #180 tabs 07/19/22 04/27/23 Rx clobetasol 0.05 % topical cream 1 applic topical DAILY #60 grams 10/09/22 04/27/23 Rx oxybutynin chloride 5 mg tablet See Rx Instructions .Route 02/24/23 04/27/23 Rx .COMPLEX #100 tabs amlodipine 5 mg tablet See Rx Instructions .Route 03/31/23 04/27/23 Rx .COMPLEX #100 tabs losartan 100 mg tablet 100 mg PO DAILY #90 tabs 04/07/23 04/27/23 Rx pravastatin 20 mg tablet 20 mg PO DAILY #90 tabs 04/08/23 04/27/23 Rx Laboratory Tests 04/27/23 04/27/23 04/27/23 08:52 08:52 08:52 WBC RBC Hgb Hct MCV MCH MCHC RDW Plt Count MPV Immature Gran % (Auto) Neut % (Auto) Lymph % (Auto) Coal % (Auto) Eos % (Auto) Baso % (Auto) Lymph # (Auto) Coal # (Auto) Eos # (Auto) Baso # (Auto) Abs Immat Gran (auto) Absolute Neuts (auto) Absolute Nucleated RBC Nucleated RBC % Sodium Potassium Chloride Carbon Dioxide Anion Gap BUN Creatinine Estim Creat Clear Calc Estimated GFR Glucose Serum Osmolality Calcium Total Bilirubin Direct Bilirubin AST ALT Alkaline Phosphatase Total Protein Albumin Slitb-8-Uktstihsz Frusm-5-Wzwylriic Wqyf-6-Bicikfbo Wtmm-3-Wadxvlpb Gamma Globulins Abnorm Protein Band 1 Abnorm Protein Band 3 PEP Interpretation TSH (Reflex) Random Cortisol U Random Total Protein 7 mg/dL Ur Random Sodium Cancelled Cancelled Urine Creatinine Cancelled 32.4 mg/dL Protein/Creat Ratio 2 0.22 H mg/mg (0-0.20) Blood Type Antibody Screen Crossmatch 04/27/23 04/27/23 04/27/23 14:15 19:05 21:20 WBC RBC Hgb 6.8 L* g/dL (14.0-18.0) Hct 20.1 L* % (42.0-52.0) MCV MCH MCHC RDW Plt Count MPV Immature Gran % (Auto) Neut % (Auto) Lymph % (Auto) Coal % (Auto) Eos % (Auto) Baso % (Auto) Lymph # (Auto) Coal # (Auto) Eos # (Auto) Baso # (Auto) Abs Immat Gran (auto) Absolute Neuts (auto) Absolute Nucleated RBC Nucleated RBC % Sodium 129 L mmol/L 128 L mmol/L (137-145) (137-145) Potassium 4.2 mmol/L (3.4-5.0) Chloride 105 mmol/L (98-107) Carb
[2023-04-28] MEDS: oxyBUTYnin CHLORIDE 5 MG TABLET PO (20:50)
[2023-04-28] MEDS: SODIUM CHLORIDE 0.45% 1,000 ML 50 ML IV CONT (21:10)
[2023-04-29] MEDS: IPRATROPIUM BR 0.02% INH SOLN 0.5 MG/2.5 ML VIAL INHALATION ×2 (02:55→08:06)
[2023-04-29] MEDS: ALBUTEROL SULFATE NEB 2.5 MG/3 ML INH INHALATION ×2 (02:55→08:06)
[2023-04-29 02:57] VITALS: PULSE 74; RESP 16
[2023-04-29 03:08] VITALS: PULSE 76; RESP 16
[2023-04-29 05:25] VITALS: BP 131/69; PULSE 69; RESP 18; TEMP 36.1; O2SAT 94
[2023-04-29 08:00] VITALS: PULSE 69; RESP 18
[2023-04-29 08:06] LABS: Hematocrit 29.5 % (42.0-52.0); Mean Corpuscular HGB Conc 33.9 g/dl (32-36); Mean Corpuscular Hemoglobin 31.3 pg (26-34); Mean Corpuscular Volume 92.2 fl (80-100); Mean Platelet Volume 8.4 fl (7.4-10.4); Platelet Count Result 206 k/mm3 (150-375); Red Cell Distribution Width 12.8 % (11.5-14.5); White Blood Count 7.1 K/mm3 (4.5-10.0)
[2023-04-29 08:29] LABS: Alanine Aminotransferase 22 U/L (6-50); Albumin Level 3.3 g/dL (3.5-5.1); Alkaline Phosphatase 130 U/L (38-126); Anion Gap 4 mmol/L (8-16); Aspartate Amino Transferase 37 U/L (17-59); Bilirubin,Total 0.7 mg/dL (0.2-1.3); Blood Urea Nitrogen 8 mg/dL (9-20); Calcium 8.2 mg/dL (8.4-10.2); Carbon Dioxide 27 mmol/L (22-30); Chloride 99 mmol/L (98-107); Estimated CRCL calculation 81 ml/min; Estimated Glomerular Filt Rate > 60; Glucose 83 mg/dL (65-110); Potassium 3.5 mmol/L (3.4-5.0); Sodium 130 mmol/L (137-145)
--- NOTE | 2023-04-29 10:30 | PM.DS ---
DS: Admitting Diagnosis Discharge Date 04/29/2023 Admitting Diagnosis anemia, adult failure to thrive, COPD, PVD, benign essential hypertension DS: Discharge Diagnosis Discharge Diagnosis (1) Anemia: Code(s): D64.9 - Anemia, unspecified Status: Acute (2) COPD (chronic obstructive pulmonary disease): Code(s): J44.9 - Chronic obstructive pulmonary disease, unspecified Status: Acute (3) PVD (peripheral vascular disease): Code(s): I73.9 - Peripheral vascular disease, unspecified Status: Chronic (4) Benign essential hypertension: Code(s): I10 - Essential (primary) hypertension Status: Chronic DS: Summary Hospital Course Reason for hospitalization: weakness shortness of breath anemia and melena Hospital Course: This is a 78-year-old male with past medical history significant for hypertension, tobacco dependence, alcohol dependence, patient has been sober for 5 weeks used to drink 2+ 30 pack beer a week, smokes 1 and pack of cigarettes most days for 60+ years.? Patient presents to the emergency room due to generalized weakness, fatigue, low stamina, shortness of breath, had episode of melena, denies hematemesis denied bright red blood per rectum denies coffee-ground emesis states that it does not have much of an appetite pretty much eats canned food on most days.? Preliminary workup in emergency room was significant for hemoglobin of 9, hematocrit 27, sodium 127, chloride 97 bicarb 19 04/27:? Patient reports he stopped drinking on March 11, 2023.? He reported fatigue and shortness of breath at home for a few days leading to him calling EMS to come to hospital yesterday.? In ER he was found to have wheezing, lower Hgb than prior baseline and heme positive stools.? Patient admitted for GI consult.? Also found to have hyponatremia at 123, prior history of hyponatremia which may have been chronic beer potomania.? 04/28:? Yesterday afternoon Hgb dropped to 6.8 on redraw which likely indicated active bleeding.? He received 2 units PRBCs overnight.? Today patient reported that he felt rested and well this morning.? Hyponatremia seems stable at 129.? Patient NPO since 0900 for EGD this afternoon.? Patient may also require colonoscopy, either inpatient or outpatient, due to findings of lytic lesion on T10 vertebrae suspicious for metastasis.? Patient denies any difficulty breathing today. 04/29: sodium has remained stable currently at 130 which is comparable to prior results. Hemoglobin remains stable and patient is tolerating full diet. Discussed with Dr. Castro and he will schedule for outpatient colonoscopy. There is concerned patient may have metastasis to T10 and my concern is that it may be colon cancer with mets. Patient is requesting discharge home. PT and OT saw him and signed off on his orders. We will initiate pantoprazole twice daily and stop patient's aspirin. Patient instructed to follow-up with primary care and Gastroenterology. He is in agreement with doing such. Status at Discharge Cognitive/behavioral status at discharge: Awake alert oriented and very pleasant Functional status at discharge: independent ambulation Overall status at discharge: patient is progressing back to baseline Time Spent with Patient Time attestation: Total time spent providing and/or coordinating discharge services: 35 minutes Time spent: Greater than 30 minutes Exam Narrative: Exam Narrative: Well developed well-nourished in no acute distress Skin is warm and dry without rash Head normocephalic atraumatic Eyes normal sclerae and conjunctivae Mouth normal lips teeth and gums Neck no nodes no thyromegaly no carotid bruits Axillae no nodes Back no CVA tenderness Lungs symmetric and clear to auscultation and percussion Heart regular rate and rhythm without rub or gallop Abdomen bowel sounds positive soft nontender, no HSM, masses, or bruits. Extremities no cyanosis, clubbing, or edema Pulses 2+ equa
[2023-04-29] MEDS: THIAMINE HCL 200 MG/2 ML VIAL 100 MG IV PUSH (10:40)
[2023-04-29] MEDS: PRAVASTATIN SODIUM 20 MG TABLET PO (10:40)
[2023-04-29] MEDS: PANTOPRAZOLE SODIUM IV 40 MG VIAL IV PUSH (10:40)
--- NOTE | 2023-04-29 14:51 | P.PNAN_ITS ---
Anes - Prog Note Post-Op Date/Time: 04/29/23 14:51 Cardiovascular status: normal Respiratory status: normal Airway patency: baseline Mental status: baseline Post-Op hydration status: normal Vital Signs: Last Vital Signs Temp 96.9 F L 04/29/23 05:25 Pulse 69 04/29/23 08:00 Resp 18 04/29/23 08:00 BP 131/69 04/29/23 05:25 Pulse Ox 94 04/29/23 05:25 O2 Del Method Room Air 04/28/23 20:00 Pain Score (VAS): 0/10 I/O: Intake & Output 04/28/23 04/29/23 04/29/23 23:59 07:59 15:59 Intake Total 240 575 480 Output Total 1350 3470 Balance -1110 -2890 480 Laboratory Tests 04/29/23 07:31 04/29/23 07:31 04/29/23 07:31 WBC 7.1 RBC 3.20 L Hgb 10.0 L Hct 29.5 L MCV 92.2 MCH 31.3 MCHC 33.9 RDW 12.8 Plt Count 206 MPV 8.4 Sodium 130 L Potassium 3.5 Chloride 99 Carbon Dioxide 27 Anion Gap 4 L BUN 8 L D Creatinine 0.60 L Estim Creat Clear Calc 81 Estimated GFR > 60 Glucose 83 Calcium 8.2 L Total Bilirubin 0.7 AST 37 ALT 22 Alkaline Phosphatase 130 H Total Protein 6.0 L Albumin 3.3 L Post-procedural complaints: none Patient Feedback: Patient satisfied with anesthetic care.
[2023-05-01 17:52] LABS: Alpha 1 Globulin 0.3 g/dL (0.2-0.3); Alpha 2 Globulin 0.6 g/dL (0.5-0.9); Beta 1 Globulin 0.3 g/dL (0.4-0.6); Gamma Globulin 0.8 g/dL (0.8-1.7); Protein, Total 5.3 g/dL (6.1-8.1)
[2023-05-01 21:38] LABS: Osmolality, Urine 430 mOsm/kg (50-1200)
== END 2023-04-29 14:10 | disposition home or self-care (01) | DRG 812 ==
LOC: ANHED 04-27 04:23 → ANH3MEDSUR 04-27 06:09
PROVIDERS: Internal Medicine Gastroenterology; Internal Medicine Nephrology; Admitting Provider Internal Medicine; Emergency Provider Emergency Medicine; PCP Nurse Practitioner; Visit Provider Nurse Practitioner
PROC: 0DJ08ZZ Inspection of Upper Intestinal Tract, Via Natural or Artificial Opening Endoscopic (ICD-10-PCS; CPT 43235; principal; 2023-04-28 14:00)
DX: D64.9 Anemia, unspecified (principal); E87.1 Hypo-osmolality and hyponatremia; K92.1 Melena; R62.7 Adult failure to thrive; Z68.20 Body mass index [BMI] 20.0-20.9, adult; J44.9 Chronic obstructive pulmonary disease, unspecified; I73.9 Peripheral vascular disease, unspecified; I10 Essential (primary) hypertension; F10.20 Alcohol dependence, uncomplicated; Z20.822 Contact with and (suspected) exposure to COVID-19; K21.9 Gastro-esophageal reflux disease without esophagitis; M89.9 Disorder of bone, unspecified; K44.9 Diaphragmatic hernia without obstruction or gangrene; K26.9 Duodenal ulcer, unspecified as acute or chronic, without hemorrhage or perforation; Z79.82 Long term (current) use of aspirin; Z87.891 Personal history of nicotine dependence; E86.0 Dehydration
CPT/HCPCS: 36415; 36430; 70450; 71046; 71275; 80048; 80053; 80076; 81003; 82533; 82570; 82607; 82728; 82746; 82803; 83540; 83550; 83605; 83880; 83930; 83935; 84155; 84156; 84165; 84295; 84300; 84443; 84466; 84484; 84540; 85014; 85018; 85025; 85027; 86850; 86900; 86901; 86923; 87040; 87081; 87637; 88305; 93005; 94640; 96361; 96374; 97165; 99285; A9270; C9113; J1100; J2597; J2704; J3411; J7030; J7050; J7070; J7120; P9016; Q9967

== ENCOUNTER 2023-05-07 06:50 | Outpatient (CLI) | payer MEDICARE, SELFPAY | END 2023-05-07 06:51 | disposition home or self-care (01) | PROVIDERS: PCP Nurse Practitioner; Visit Provider Nurse Practitioner | DX: R94.7 Abnormal results of other endocrine function studies (principal); E87.1 Hypo-osmolality and hyponatremia | CPT/HCPCS: 36415; 82533; 96372; J0834 ==

== ENCOUNTER 2023-05-29 08:27 | Outpatient (CLI) | payer MEDICARE, SELFPAY ==
[2023-05-29 17:27] LABS: Hematocrit 35.5 % (42.0-52.0); Hemoglobin 10.9 g/dL (14.0-18.0); Mean Corpuscular HGB Conc 30.7 g/dl (32-36); Mean Corpuscular Hemoglobin 29.6 pg (26-34); Mean Corpuscular Volume 96.5 fl (80-100); Mean Platelet Volume 7.9 fl (7.4-10.4); Platelet Count Result 333 k/mm3 (150-375); Red Blood Count 3.68 M/mm3 (4.6-6.20); Red Cell Distribution Width 12.6 % (11.5-14.5); White Blood Count 6.8 K/mm3 (4.5-10.0)
[2023-05-29 17:38] LABS: Alanine Aminotransferase 16 U/L (6-50); Albumin Level 3.8 g/dL (3.5-5.1); Alkaline Phosphatase 132 U/L (38-126); Anion Gap 7 mmol/L (8-16); Aspartate Amino Transferase 61 U/L (17-59); Bilirubin,Total 0.4 mg/dL (0.2-1.3); Blood Urea Nitrogen 5 mg/dL (9-20); Calcium 8.9 mg/dL (8.4-10.2); Carbon Dioxide 28 mmol/L (22-30); Chloride 94 mmol/L (98-107); Estimated Glomerular Filt Rate > 60; Glucose 88 mg/dL (65-110); Sodium 129 mmol/L (137-145)
== END 2023-05-29 08:28 | disposition home or self-care (01) ==
LOC: ANHWCLAB 08:28
PROVIDERS: PCP Nurse Practitioner; Visit Provider Nurse Practitioner
DX: E87.1 Hypo-osmolality and hyponatremia (principal); D64.9 Anemia, unspecified
CPT/HCPCS: 36415; 80053; 85027

== ENCOUNTER 2023-07-09 08:38 | Day surgery (SDC) | payer MEDICARE, SELFPAY ==
[2023-06-10 14:54] VITALS: BMI 20.9
--- NOTE | 2023-07-07 09:05 | SUR.PREOP ---
Patient called regarding upcoming procedure. Voicemail left regarding appointment times.
--- NOTE | 2023-07-08 18:19 | PM.HPGS ---
History of Present Illness History of Present Illness Consent: Risks, benefits, and alternatives have been discussed and questions answered. Patient agrees to proceed with procedure. Chief complaint: History colon polyps Narrative: Darryl Murphy is a 78 year old male Who had removal of 3 tubular adenomas when he had a colonoscopy 7 years ago. Was recently hospitalized for upper gastrointestinal bleeding which was due Review of Systems Review of Systems: All systems reviewed & are unremarkable except as noted in HPI and below PMFSH Past Medical History Medical History COPD (chronic obstructive pulmonary disease) Family History Family History Sibling Hypertension Mother Family history of chronic obstructive pulmonary disease Father Family history of lung cancer Social History Social History Smoking packs per day: 1.5 Smoking cigarettes per day: 30.0 Years smoked: 60 Smoking pack-years: 90.00 Smoking status: Current every day smoker Tobacco type: cigarettes Second hand tobacco smoke exposure: Yes Alcohol intake: former Drinks per week: 0 Alcohol use details: beer Substance use: never Substance use type: does not use Do You Feel Safe in your Home?: Yes Lack of Transportation: No Lack of Food: Never True Current Housing: I Have Housing Concerned About Future Housing: No Difficulty Paying Gas/Electric Bills: No Difficulty Paying for Meds: No Currently Unemployed: No Education: Decline to Answer Difficulty w/ Childcare or Family Care: No Living arrangements: alone Spiritual care concerns: No Meds Home Medications and Allergies Home Medications Medication Instructions Recorded Confirmed Type triamcinolone acetonide 0.1 % 1 applic topical BID #15 grams 12/25/21 07/09/23 Rx topical cream cilostazol 100 mg tablet 100 mg PO BID #180 tabs 07/19/22 07/09/23 Rx clobetasol 0.05 % topical cream 1 applic topical DAILY #60 grams 10/09/22 07/09/23 Rx oxybutynin chloride 5 mg tablet See Rx Instructions .Route 02/24/23 07/09/23 Rx .COMPLEX #100 tabs amlodipine 5 mg tablet See Rx Instructions .Route 03/31/23 07/09/23 Rx .COMPLEX #100 tabs pantoprazole 40 mg tablet,delayed 40 mg PO BID #60 tabs 06/03/23 07/09/23 Rx release losartan 100 mg tablet See Rx Instructions .Route 06/12/23 07/09/23 Rx .COMPLEX #100 tabs pravastatin 20 mg tablet 20 mg PO DAILY #90 tabs 06/30/23 07/09/23 Rx Allergies Allergy/AdvReac Type Severity Reaction Status Date / Time Penicillins Allergy Unknown hives Verified 07/09/23 08:50 Exam Resp: Auscultation: clear to auscultation bilaterally Cardio: Rate: regular rate Rhythm: regular rhythm GI: GI Palp: Yes Soft to palpation and No Tenderness to palpation present (GI) Assessment and Plan Assessment and plan (1) Personal history of colonic polyps: Code(s): Z86.010 - Personal history of colonic polyps Status: Acute Assessment and Plan: Colonoscopy with possible biopsy or polypectomy or cautery or injection of substances.
[2023-07-09 08:40] VITALS: BP 126/94; PULSE 95; RESP 16; TEMP 37.2; O2SAT 97; BMI 19.3
--- NOTE | 2023-07-09 08:56 | WPDANESEPPF ---
Anes - Initial Pre Proc Eval Procedure: Operation Date: 07/09/23 10:00 Proposed Procedures p Colonoscopy - Dilip Castro MD Date/Time: 07/09/23 08:56 Surgeon: Dilip Castro MD Pre Op Diagnosis: History colon polyps Patient Data Age: 78 Gender: M Height: 1.8 m Weight: 62.9 kg Last Vital Signs Temp 99.0 F 07/09/23 08:40 Pulse 95 07/09/23 08:40 Resp 16 07/09/23 08:40 BP 126/94 H 07/09/23 08:40 Pulse Ox 97 07/09/23 08:40 O2 Del Method Room Air 07/09/23 08:40 Allergies Allergy/AdvReac Type Severity Reaction Status Date / Time Penicillins Allergy Unknown hives Verified 07/09/23 08:50 Home Medications Medication Instructions Recorded Confirmed Type triamcinolone acetonide 0.1 % 1 applic topical BID #15 grams 12/25/21 07/09/23 Rx topical cream cilostazol 100 mg tablet 100 mg PO BID #180 tabs 07/19/22 07/09/23 Rx clobetasol 0.05 % topical cream 1 applic topical DAILY #60 grams 10/09/22 07/09/23 Rx oxybutynin chloride 5 mg tablet See Rx Instructions .Route 02/24/23 07/09/23 Rx .COMPLEX #100 tabs amlodipine 5 mg tablet See Rx Instructions .Route 03/31/23 07/09/23 Rx .COMPLEX #100 tabs pantoprazole 40 mg tablet,delayed 40 mg PO BID #60 tabs 06/03/23 07/09/23 Rx release losartan 100 mg tablet See Rx Instructions .Route 06/12/23 07/09/23 Rx .COMPLEX #100 tabs pravastatin 20 mg tablet 20 mg PO DAILY #90 tabs 06/30/23 07/09/23 Rx Patient hx anesthesia problems: none Family hx anesthesia problems: none Results Review: All pre-operative results and documents have been reviewed as part of the pre-operative evaluation. [facility] Past Medical History Medical History COPD (chronic obstructive pulmonary disease) Family History Family History Sibling Hypertension Mother Family history of chronic obstructive pulmonary disease Father Family history of lung cancer Social History Social History Smoking packs per day: 1.5 Smoking cigarettes per day: 30.0 Years smoked: 60 Smoking pack-years: 90.00 Smoking status: Current every day smoker Tobacco type: cigarettes Second hand tobacco smoke exposure: Yes Alcohol intake: former Drinks per week: 0 Alcohol use details: beer Substance use: never Substance use type: does not use Do You Feel Safe in your Home?: Yes Lack of Transportation: No Lack of Food: Never True Current Housing: I Have Housing Concerned About Future Housing: No Difficulty Paying Gas/Electric Bills: No Difficulty Paying for Meds: No Currently Unemployed: No Education: Decline to Answer Difficulty w/ Childcare or Family Care: No Living arrangements: alone Spiritual care concerns: No Anes - Eval Final PreProcedure Day of Procedure 07/09/23 08:56 Patient weight: normal Heart: regular rate and rhythm Lungs: clear to auscultation Airway: Mallampati scale class III Neurological: alert and oriented Last oral intake: >/= 8 hours ASA classification: III Emergent: no Anesthetic plan: proceed Anesthesia type and monitoring: general GIVS and standard monitoring Results Review: All pre-operative results and documents have been reviewed as part of the pre-operative evaluation. Informed Consent: The patient's anesthetic plan and its attendant risks and benefits were discussed with the patient/family/POA. Questions were solicited and answers provided to the satisfaction of the patient/family/POA.
[2023-07-09] MEDS: LACTATED RINGERS 1,000 ML 150 ML IV CONT (09:02)
[2023-07-09 10:25] VITALS: BP 89/46; PULSE 66; RESP 19; O2SAT 100
[2023-07-09 10:35] VITALS: BP 82/54; PULSE 74; RESP 21; O2SAT 97
[2023-07-09 10:45] VITALS: BP 98/55; PULSE 71; RESP 17; O2SAT 98
== END 2023-07-09 10:55 | disposition home or self-care (01) ==
PROVIDERS: PCP Nurse Practitioner; Visit Provider Internal Medicine Gastroenterology
PROC: 0DJD8ZZ Inspection of Lower Intestinal Tract, Via Natural or Artificial Opening Endoscopic (ICD-10-PCS; CPT 45378; principal; 2023-07-09 10:00)
DX: Z12.11 Encounter for screening for malignant neoplasm of colon (principal); D12.2 Benign neoplasm of ascending colon; D12.5 Benign neoplasm of sigmoid colon; K57.30 Diverticulosis of large intestine without perforation or abscess without bleeding; F17.210 Nicotine dependence, cigarettes, uncomplicated
CPT/HCPCS: 45380; 45385; 88305; J2371; J2704; J7120

== ENCOUNTER 2023-08-07 18:28 | Inpatient (IN) | payer MEDICARE, SELFPAY ==
--- NOTE | ~2023-08-07 | CT_ITS ---
EXAMINATION: CT diagnostic chest w con DATE: 08/11/2023 11:30 INDICATION: lymphoma TECHNIQUE: Computed tomography (CT) of the chest was performed with 100 mL Omnipaque-350 intravenous contrast. Additional 3D reconstructions utilizing coronal maximum intensity projection (MIP) were per formed. Automated exposure control and iterative reconstruction technique were employed. The dose-clotilde gth product was 147.19 mGy-cm. COMPARISON: 04/26/2023, 10/24/2022 and 09/25/2021 FINDINGS: Moderate emphysema. There is poor and loss in the bilateral lower lobes with linear and bandlike cons olidation most likely representing atelectasis. There is diffuse mild bronchial wall thickening with some bubbly mucus in the right bronchus intermedius. There is also mucous plugging in the bilateral l ower lobes and could not exclude superimposed pneumonia along with atelectasis. Unchanged 4 mm right middle lobe nodule. No pleural effusion. Heart size is normal. Atherosclerotic coronary artery calcif ications. Aortic valve calcification. No pericardial effusion. Thoracic aorta is normal in caliber wi th no dissection. Cluster of rim calcified nodules in the anterior mediastinum, the largest measuring up to 2.0 cm consistent with treated lymphoma. Along the right side of the rim calcified masses is a n additional nonperipherally calcified 1.7 x 0.9 cm soft tissue density which is remained unchanged s ishmael 09/25/2021. Significant interval increase in size of multiple superior mediastinal masses likely representing enl arged lymph nodes, the largest situated between the trachea. For reference a 2.7 x 2.4 cm mass betwee n the trachea and the medial margin of the aortic arch is increased from 2.1 x 1.2 cm to currently me asuring 2.7 x 2.4 cm. There is a larger and slightly more cephalad 4.1 x 2.9 cm mass which has also i ncreased in size since prior study. On the prior study this measured approximately 2.4 x 1.4 cm howev er position of measurement is significantly limited on the prior study due to dense streak artifact f rom contrast in the left brachiocephalic vein. The enlarged lymphadenopathy extends cephalad into the left supraclavicular region and along the caudal aspect of the bilateral jugular chains. Findings ar e consistent with progression of known lymphoma. There is new patchy sclerosis surrounding a previously noted lytic lesion at the T10 vertebral body w ith slight increase in overlying superior endplate compression fracture. There multiple new regions o f patchy lucency and/or sclerosis involving the majority the vertebrae in the thoracic and visualized lower cervical and upper thoracic spine including both the vertebral bodies and posterior elements. Additional subtle patchy lucency and sclerosis throughout multiple ribs and also involving the sternu m and bilateral scapulae. There is some increased soft tissue density surrounding the healing fractur e of the anterolateral right sixth rib. IMPRESSION: 1. Significant interval progression of bulky lymphadenopathy in the superior mediastinum, the inferio r bilateral jugular chains and left supraclavicular region consistent with progression of reported kn own lymphoma. 2. Progression in multiple lytic and/or sclerotic lesions throughout numerous bones in the spine and thorax most likely related to progression of reported lymphoma. 3. Moderate emphysema with consolidation in the bilateral lower lobes with configuration and associat ed volume loss favoring atelectasis although there is also some bronchial wall thickening with mucous plugging in the bilateral lower lobes and superimposed bronchitis and/or pneumonia cannot be exclude d. Reviewed, dictated and finalized at location A. IMPRESSION: 1. Significant interval progression of bulky lymphadenopathy in the superior me diastinu
--- NOTE | ~2023-08-07 | CT_ITS ---
CT of the Abdomen and Pelvis: Indication: Back pain Technique: 2.5 mm axial scans were obtained through the abdomen and pelvis following intravenous adm inistration of 100 cc of Omnipaque 350. Dose reduction technique was used on this scan by utilizing a utomated exposure control and iterative reconstruction technique. The dose-length product (DLP) was 2 51.40 mGy-cm. Findings: Scans through the lung bases demonstrate focal left basilar atelectatic change. The liver, spleen, pancreas, gallbladder, adrenals and kidneys are within normal limits. There are at herosclerotic calcifications of the aorta. There is extensive periaortic lymphadenopathy, with additi onal lymphadenopathy along the bilateral external iliac chains. No bowel obstruction or bowel wall thickening. Prominent stool suggests constipation. Images through the pelvis were performed. Urinary bladder unremarkable. Prostate gland enlarged. No d efinite ascites. There are multiple sclerotic osseous lesions, with extensive involvement of the T12, L4, L5 vertebral bodies in particular, with additional smaller scattered lesions in the spine. There is probable mild pathologic compression fracture of T12. There are also multiple sclerotic ill-defined lesions throug hout the iliac/pelvic bones bilaterally. Impression: Extensive lymphadenopathy along the periaortic and external iliac chain regions. Findings could refle ct lymphoma versus other metastatic disease. Extensive sclerotic osseous metastatic disease. This could reflect osseous involvement of lymphoma ve rsus other metastatic disease. Probable mild pathologic compression fracture of T12. Constipation. Enlarged prostate gland. Reviewed, dictated and finalized at [facility]. Impression: Extensive lymphadenopathy along the periaortic and external iliac chain regions . Findings could reflect lymphoma versus other metastatic disease. Extensive sclerotic osseous metastatic disease. This could reflect osseous invo lvement of lymphoma versus other metastatic disease. Probable mild pathologic compression fracture of T12. Constipation. Enlarged prostate gland.
--- NOTE | ~2023-08-07 | US_ITS ---
EXAMINATION: US biopsy lymph node DATE: 08/12/2023 12:47 INDICATION: Left supraclavicular lymphadenopathy TECHNIQUE: The procedure including the risks and benefits was discussed with the patient. Risks discu ssed included bleeding and infection. The patient understood the risks and agreed to proceed. The sk in overlying the left supraclavicular base of the neck was prepped and draped in usual sterile fashio n. Anesthetic was administered with 1% lidocaine subcutaneously. An 18 gauge core biopsy needle was advanced under continuous ultrasound observation to the lesion of interest. 3 core biopsy specimens were obtained and placed in RPMI media. Additional 4 core biopsy specimens were obtained with a 14-g auge core needle biopsy under continuous ultrasound observation, 2 placed in RPMI media and 2 in form sixto. The needle was removed and the entry site was cleaned and dressed. Post procedure ultrasound demonstrated no hemorrhage. FINDINGS: Ultrasound images demonstrate multiple round hypoechoic left supraclavicular masses consist ent with enlarged lymph nodes with effacement of the typical central fatty queenie. Subsequent images de monstrate the biopsy needle advanced into the lymph nodes which measure 2.5 cm and 1.8 cm diameter.. IMPRESSION: 1. Successful Ultrasound-guided biopsy of a pair of enlarged left supraclavicular lymph nodes. Reviewed, dictated and finalized at location A. IMPRESSION: 1. Successful Ultrasound-guided biopsy of a pair of enlarged left supraclavicul ar lymph nodes.
--- NOTE | ~2023-08-07 | NM_ITS ---
EXAMINATION: NM bone scan whole body DATE: 08/11/2023 14:50 INDICATION: Osseous lesions on prior CT TECHNIQUE: 26.2 mCi Tc-99m HDP was administered intravenously. Delayed whole-body scintigrams were o btained. COMPARISON: CT dated 08/11/2023 FINDINGS/IMPRESSION: There are numerous scattered foci of increased bone uptake throughout the axial and appendicular skel eton, those in the chest, abdomen or pelvis corresponding with multiple lytic and/or sclerotic bone l esions suspicious for metastatic disease. Reviewed, dictated and finalized at location A.
--- NOTE | ~2023-08-07 | CT_ITS ---
EXAMINATION: CT lumbar spine wo con DATE: 08/07/2023 21:43 INDICATION: Low back pain TECHNIQUE: Computed tomography (CT) of the lumbar spine was performed without intravenous contrast. T he dose-length product (DLP) was 224.14 mGy-cm. Iterative reconstruction was used. COMPARISON: 04/26/2023 FINDINGS: There are 3 mm of retrolisthesis of L5 on S1. The lumbar vertebral body heights are maintai dominic. There is moderate loss of intervertebral disc space height at L4-5 and L5-S1. There are lytic an d sclerotic lesions of the visualized lower thoracic and lumbar vertebral bodies as well as the sacru m and visualized iliac bones. There is pelvic and retroperitoneal lymphadenopathy. IMPRESSION: 1. Moderate to severe lumbar spondylosis. 2. Lytic and sclerotic lesions of the visualized osseous structures with pelvic and retroperitoneal l ymphadenopathy, consistent with metastatic disease. Reviewed, dictated and finalized at location F. IMPRESSION: 1. Moderate to severe lumbar spondylosis. 2. Lytic and sclerotic lesions of the visualized osseous structures with pelvic and retroperitoneal lymphadenopathy, consistent with metastatic disease.
[2023-08-07 18:34] VITALS: BP 127/78; PULSE 82; RESP 18; TEMP 36.4; O2SAT 100
[2023-08-07] MEDS: CYCLOBENZAPRINE HCL 10 MG TABLET PO (21:14)
[2023-08-07] MEDS: KETOROLAC 30 MG/ML VIAL (*BKC) IM (21:14)
[2023-08-07] MEDS: HYDROcodone/acetaminophen (*CRX) 5-325 MG TABLET 1 TAB PO (21:14)
--- NOTE | 2023-08-07 22:31 | ED.BACK ---
HPI - Back Pain/Injury General Chief Complaint: Back Pain/Injury Stated Complaint: BACK PAIN Time Seen by Provider: 08/07/23 20:09 History of Present Illness HPI Narrative: 78-year-old male history of chronic back pain presented to the emergency department for evaluation worsening back pain that worsened last night. Patient does have a history of chronic back pain and denies any recent falls or injuries. Patient states the back pain worsened while he was sleeping and has been uncontrolled today. Patient denies any associated numbness or weakness. Patient is comfortable during the examination. Related Data Home Medications Medication Instructions Recorded Confirmed amlodipine 5 mg tablet 5 mg PO DAILY 08/08/23 08/08/23 losartan 100 mg tablet 100 mg PO DAILY 08/08/23 08/08/23 oxybutynin chloride 5 mg tablet 5 mg PO DAILY 08/08/23 08/08/23 Allergies Allergy/AdvReac Type Severity Reaction Status Date / Time Penicillins Allergy Unknown hives Verified 08/07/23 20:11 Review of Systems Review of Systems: All systems reviewed & are unremarkable except as noted in HPI and below PMFSH Past Medical History Medical History (Updated 08/08/23 @ 10:25 by Margareth Childers APRN) COPD (chronic obstructive pulmonary disease) Hyponatremia Family History Family History Sibling Hypertension Mother Family history of chronic obstructive pulmonary disease Father Family history of lung cancer Social History Social History Smoking packs per day: 1.5 Smoking cigarettes per day: 30.0 Years smoked: 60 Smoking pack-years: 90.00 Smoking status: Current every day smoker Tobacco type: cigarettes Second hand tobacco smoke exposure: Yes Alcohol intake: former Drinks per week: 70 Alcohol use details: beer Substance use: current Substance use type: does not use Do You Feel Safe in your Home?: Yes Lack of Transportation: No Lack of Food: Never True Current Housing: I Have Housing Concerned About Future Housing: No Difficulty Paying Gas/Electric Bills: No Difficulty Paying for Meds: No Currently Unemployed: No Education: Decline to Answer Difficulty w/ Childcare or Family Care: No Living arrangements: alone Spiritual care concerns: No Exam Narrative: APPEARANCE: Uncomfortable appearing HEAD: normocephalic, atraumatic. EYES: PERRLA/EOMI, conjunctivae clear. NOSE: Normal no drainage EARS:TMS clear with good light reflex. THROAT: Pharynx clear, no exudate. NECK: Supple. No adenopathy, no masses. RESPIRATORY: Airway patent, respirations nonlabored. Clear to auscultation bilaterally, no rales, rhonchi, wheezing. CARDIOVASCULAR: Regular rate and rhythm without murmurs rubs or gallops. ABDOMINAL: Soft, nontender, nondistended, normal bowel sounds MUSCULOSKELETAL: Lower back tenderness to palpation NEURO: Alert. Cranial nerves II through XII intact. Grossly intact Course Course Emergency Course: Patient was admitted for hyponatremia and intractable back pain Vital Signs Vital signs: Vital Signs Temperature 97.6 F 08/07/23 18:34 Pulse Rate 82 08/07/23 18:34 Respiratory Rate 18 08/07/23 18:34 Blood Pressure 127/78 08/07/23 18:34 Pulse Oximetry 100 08/07/23 18:34 Oxygen Delivery Room Air 08/07/23 18:34 Temperature 98.6 F 08/08/23 20:24 Pulse Rate 80 08/08/23 20:24 Respiratory Rate 16 08/08/23 20:24 Blood Pressure 131/61 08/08/23 20:24 Pulse Oximetry 93 08/08/23 20:24 Oxygen Delivery Room Air 08/08/23 20:00 MDM - Back Pain/Injury MDM Narrative Medical decision making narrative: 78-year-old male present to ED for evaluation of intractable back pain. CT scan showed lytic lesions. Patient does have a history of these lesions and no underlying metastatic disease was found his previous workup. Attempted to control the pat
--- NOTE | 2023-08-07 22:48 | PM.IMHP ---
H&P: HPI History of Present Illness Date/Time: 08/07/23 22:48 Chief Complaint: back pain Narrative: This is a 78-year-old male with past medical history significant for COPD, alcohol dependence, lytic bone lesions. Presents to the emergency room due to back pain, poor per orally intake, daughter provides most of the history,patient with very limited functioning status due to pain, sits most of the day. Preliminary workup was significant for chemistry panel with a sodium 116. patient denies any fevers, rigors, chills, nausea, vomiting, diarrhea, no cough, no sputum production. CT of lumbar spine showed numerous lytic lesions. EXAMINATION: CT lumbar spine wo con DATE: 08/07/2023 21:43 INDICATION: Low back pain TECHNIQUE: Computed tomography (CT) of the lumbar spine was performed without intravenous contrast. The dose-length product (DLP) was 224.14 mGy-cm. Iterative reconstruction was used. COMPARISON: 04/26/2023 FINDINGS: There are 3 mm of retrolisthesis of L5 on S1. The lumbar vertebral body heights are maintained. There is moderate loss of intervertebral disc space height at L4-5 and L5-S1. There are lytic and sclerotic lesions of the visualized lower thoracic and lumbar vertebral bodies as well as the sacrum and visualized iliac bones. There is pelvic and retroperitoneal lymphadenopathy. IMPRESSION: 1. Moderate to severe lumbar spondylosis. 2. Lytic and sclerotic lesions of the visualized osseous structures with pelvic and retroperitoneal lymphadenopathy, consistent with metastatic disease. Review of Systems Review of Systems: back pain, poor appetite Constitutional: Constitutional: Reports poor appetite Eyes: Eyes: Denies change in vision ENT: Denies dysphagia, Denies vertigo, Denies dizziness and Denies odynophagia Cardiovascular: Cardiovascular: Denies chest pain, Denies radiating jaw, neck or arm pain and Denies palpitations Respiratory: Respiratory: Denies chest congestion and Denies cough Gastrointestinal: Gastrointestinal: Denies abdominal pain, Denies diarrhea, Denies nausea and Denies vomiting Genitourinary: Genitourinary: Denies dysuria Musculoskeletal: Musculoskeletal: Reports back pain Integumentary/Breasts: Skin/Breast: Denies rash Neurologic: Denies focal weakness and Denies Sensory deficit (Neuro) Psychiatric: Psychiatric: Reports no additional psychiatric complaints and Reports as per HPI Endocrine: Endocrine: Denies cold intolerance, Denies fatigue, Denies flushing, Denies heat intolerance, Denies polyphagia, Denies polydipsia, Denies polyuria and Denies palpitations Hematologic/Lymphatic: Hematologic/Lymphatic: Reports no additional hematologic/lymphatic complaints and Reports as per HPI Allergic/Immunologic: Allergic/Immunologic: Reports no additional allergic/immunologic complaints and Reports as per HPI PMFSH Past Medical History Medical History (Updated 08/09/23 @ 09:39 by Vilma Sue PA-C) COPD (chronic obstructive pulmonary disease) Essential hypertension Hyperlipidemia Hyponatremia Peripheral arterial disease Family History Family History Sibling Hypertension Mother Family history of chronic obstructive pulmonary disease Father Family history of lung cancer Social History Social History Smoking packs per day: 1.5 Smoking cigarettes per day: 30.0 Years smoked: 60 Smoking pack-years: 90.00 Smoking status: Current every day smoker Tobacco type: cigarettes Second hand tobacco smoke exposure: Yes Alcohol intake: former Drinks per week: 70 Alcohol use details: beer Substance use: current Substance use type: does not use Do You Feel Safe in your Home?: Yes Lack of Transportation: No Lack of Food: Never True Current Housing: I Have Housing Concerned About Future Housing: No Difficulty Paying Gas/Electric Bills:
[2023-08-07 22:50] LABS: Basophils Absolute Auto 0.1 K/mm3 (0.0-0.1); Basophils Percent Auto 0.6 % (0.2-1.2); Eosinophils Absolute Auto 0.2 K/mm3 (0-0.3); Eosinophils Percent Auto 1.6 % (0-4.4); Hematocrit 35.7 % (42.0-52.0); Hemoglobin 12.2 g/dL (14.0-18.0); Immature Granulocyte Absolute 0.15 K/mm3 (0.00-0.031); Immature Granulocyte Percent A 1.2 % (0-0.5); Lymphocytes Absolute Auto 1.57 K/mm3 (0.9-3.2); Lymphocytes Percent Auto 12.3 % (18.3-44.2); Mean Corpuscular HGB Conc 34.2 g/dl (32-36); Mean Corpuscular Volume 81.9 fl (80-100); Mean Platelet Volume 7.8 fl (7.4-10.4); Monocytes Absolute Auto 1.2 K/mm3 (0.1-0.6); Monocytes Percent Auto 9.7 % (2.6-8.5); Neutrophils Absolute Auto 9.5 K/mm3 (1.3-6.7); Neutrophils Percent Auto 74.6 % (45.5-73.1); Platelet Count Result 237 k/mm3 (150-375); Red Blood Count 4.36 M/mm3 (4.6-6.20); White Blood Count 12.7 K/mm3 (4.5-10.0)
[2023-08-07] MEDS: HYDROmorphone HCL INJ (*CRX) 1 MG/ML SYR 0.5 MG IV PUSH (22:50)
[2023-08-07 23:12] VITALS: BP 123/65; PULSE 65; RESP 15; TEMP 36.5; O2SAT 96
[2023-08-07 23:35] LABS: Alanine Aminotransferase 16 U/L (6-50); Alkaline Phosphatase 268 U/L (38-126); Anion Gap 5 mmol/L (8-16); Aspartate Amino Transferase 86 U/L (17-59); Bilirubin,Total 0.6 mg/dL (0.2-1.3); Blood Urea Nitrogen 7 mg/dL (9-20); Calcium 9.6 mg/dL (8.4-10.2); Carbon Dioxide 24 mmol/L (22-30); Chloride 87 mmol/L (98-107); Estimated CRCL calculation 129 ml/min; Estimated Glomerular Filt Rate > 60; Glucose 93 mg/dL (65-110); Potassium 4.4 mmol/L (3.4-5.0); Sodium 116 mmol/L (137-145)
--- NOTE | 2023-08-07 23:56 | PC.NURSE ---
This RN received critical sodium level on this patient upon bed assignment upstairs. Provider made aware and fluid bolus and repeat bmp ordered.
[2023-08-08] VITALS (9 sets, daily range): BP systolic 97–140; BP diastolic 60–75; PULSE 64–101; RESP 12–16; TEMP 36.4–37.1; O2SAT 90–100; BMI 22.3
--- NOTE | 2023-08-08 00:12 | PC.NURSE ---
YESSENIA from Dr. Chopra to bolus 3% normal saline 100mL
[2023-08-08] MEDS: SODIUM CHLORIDE 3% 100 ML IV CONT ×2 (00:41→03:33)
[2023-08-08 02:23] LABS: Anion Gap 7 mmol/L (8-16); Blood Urea Nitrogen 7 mg/dL (9-20); Calcium 9.2 mg/dL (8.4-10.2); Carbon Dioxide 19 mmol/L (22-30); Chloride 90 mmol/L (98-107); Estimated CRCL calculation 129 ml/min; Estimated Glomerular Filt Rate > 60; Glucose 83 mg/dL (65-110); Potassium 4.4 mmol/L (3.4-5.0); Sodium 116 mmol/L (137-145)
--- NOTE | 2023-08-08 02:27 | ADMGEN ---
This patient, Darryl Murphy, was admitted to [facility] Surg Room 306-02. Patient/family oriented to hospital policies and general routines including ID bracelet, bed and alarms, visiting hours, pain management, procedures, bathroom and other care routines, personal items, smoking policy, room service/diet, and visiting hours. Information on how to activate the Rapid Response Team has been discussed. Patient/Family are encouraged to report perceived risks to care and to ask questions if they do not understand what they are told or what they should do.
[2023-08-08] MEDS: MORPHINE SULFATE (*CRX) 2 MG/ML INJ IV PUSH (03:01)
[2023-08-08] MEDS: dexAMETHasone SOD PHOS INJ 10 MG/ML 1 ML VIAL IV PUSH (03:30)
[2023-08-08 07:43] LABS: Anion Gap 3 mmol/L (8-16); Blood Urea Nitrogen 7 mg/dL (9-20); Calcium 9.3 mg/dL (8.4-10.2); Carbon Dioxide 27 mmol/L (22-30); Chloride 92 mmol/L (98-107); Estimated CRCL calculation 129 ml/min; Estimated Glomerular Filt Rate > 60; Glucose 88 mg/dL (65-110); Potassium 4.4 mmol/L (3.4-5.0); Sodium 122 mmol/L (137-145)
[2023-08-08 07:51] LABS: Alanine Aminotransferase 16 U/L (6-50); Albumin Level 3.7 g/dL (3.5-5.1); Alkaline Phosphatase 280 U/L (38-126); Anion Gap 5 mmol/L (8-16); Aspartate Amino Transferase 91 U/L (17-59); Bilirubin,Total 0.5 mg/dL (0.2-1.3); Blood Urea Nitrogen 7 mg/dL (9-20); Calcium 9.4 mg/dL (8.4-10.2); Carbon Dioxide 25 mmol/L (22-30); Chloride 92 mmol/L (98-107); Estimated CRCL calculation 129 ml/min; Estimated Glomerular Filt Rate > 60; Glucose 89 mg/dL (65-110); Potassium 4.4 mmol/L (3.4-5.0); Sodium 122 mmol/L (137-145)
--- NOTE | 2023-08-08 09:43 | PM.IMPN ---
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 Sodium today is 122 (4) Alcohol abuse: Code(s): F10.10 - Alcohol abuse, uncomplicated Status: Chronic Assessment and Plan: 08/07/2023: CIWA as needed 08/08/2023: Continue to evaluate for any withdrawal symptoms (5) Adult failure to thrive: Code(s): R62.7 - Adult failure to thrive Status: Chronic Assessment and Plan: 08/07/2023: PT OT 08/08/2023: No change to current treatment plan Time Spent With Patient Time with patient: 25 - 35 minutes Subjective Date/time seen: 08/08/23 09:43 Interval history: This is a 78-year-old male who presented to the hospital on 08/07/2023 for evaluation of back pain that has progressively gotten worse over the past 24 hours. Workup in the hospital included a lumbar spine CT which shows moderate to severe lumbar spondylosis, lytic and sclerotic lesions of the visualized osseous structure with pelvic and retroperitoneal lymphadenopathy consistent with metastatic disease also seen. CT of the abdomen and pelvis show extensive lymphadenopathy along the shannon aortic and external iliac chain region, which could reflect lymphoma versus other metastatic disease, extensive sclerotic osseous metastatic disease, probable mild pathological compression fracture of T12, constipation, enlarged prostate gland. Initial labs show a white blood cell count of 12.7, RBC 4.36, hemoglobin 12.2, hematocrit 35.7, platelet count 237, sodium level is 116, chloride 87 calcium 9.6, AST 86, ALT 16, alk-phos 268. Patient was given [place], Flexeril, Toradol, Dilaudid, Decadron 10 mg, 1 L normal saline bolus, and started on 3% sodium chloride at 100 ml per hour. On examination today patient is alert oriented x3, sitting in the chair. He denies any fever, chills, nausea, vomiting, diarrhea, abdominal pain, chest pain, shortness a breath. He endorses mid to lower back pain which is now relieved with pain medication. Currently reporting his pain level is 2/10. Labs today reveal sodium of 122, chloride 92, AST 91, alk-phos 280. Will consult Hematology/Oncology for evaluation of the lytic lesions that were found on CT scan. Review of Systems Review of Systems: back pain, poor appetite All systems reviewed & are unremarkable except as noted in HPI and below Constitutional: Constitutional: Reports as per HPI and Reports no additional constitutional complaints Eyes: Eyes: Reports as per HPI and Reports no additional eye complaints ENT: Reports system reviewed and no additional complaints, except as documented and Reports as per HPI Cardiovascular: Cardiovascular: Reports as per HPI and Reports no additional cardiovascular complaints Respiratory: Respiratory: Reports as per HPI and Reports no additional respiratory complaints Gastrointestinal: Gastrointestinal: Reports as per HPI and Reports no additional gastrointestinal complaints Genitourinary: Genitourinary: Reports no additio
[2023-08-08] MEDS: oxyBUTYnin CHLORIDE 5 MG TABLET PO (11:13)
[2023-08-08] MEDS: PRAVASTATIN SODIUM 20 MG TABLET PO (11:13)
[2023-08-08] MEDS: CYCLOBENZAPRINE HCL 5 MG TABLET PO ×2 (11:13→20:58)
[2023-08-08] MEDS: LOSARTAN POTASSIUM 100 MG TABLET PO (11:13)
[2023-08-08] MEDS: amLODIPine BESYLATE 5 MG TABLET PO (11:13)
[2023-08-08] MEDS: LIDOCAINE 5% PATCH 1 PATCH TRANSDERM (11:14)
[2023-08-08 11:53] LABS: Basophils Percent Auto 0.4 % (0.2-1.2); Eosinophils Absolute Auto 0.1 K/mm3 (0-0.3); Eosinophils Percent Auto 0.8 % (0-4.4); Hematocrit 37.1 % (42.0-52.0); Hemoglobin 12.4 g/dL (14.0-18.0); Immature Granulocyte Percent A 1.2 % (0-0.5); Immature Platelet Fraction Pct 1.6 % (0.9-11.2); Lymphocytes Absolute Auto 0.62 K/mm3 (0.9-3.2); Lymphocytes Percent Auto 7.4 % (18.3-44.2); Mean Corpuscular HGB Conc 33.4 g/dl (32-36); Mean Corpuscular Hemoglobin 27.9 pg (26-34); Mean Corpuscular Volume 83.4 fl (80-100); Mean Platelet Volume 8.4 fl (7.4-10.4); Monocytes Absolute Auto 0.3 K/mm3 (0.1-0.6); Neutrophils Absolute Auto 7.3 K/mm3 (1.3-6.7); Neutrophils Percent Auto 87.2 % (45.5-73.1); Platelet Count Result 300 k/mm3 (150-375); Red Blood Count 4.45 M/mm3 (4.6-6.20); Red Cell Distribution Width 13.2 % (11.5-14.5); White Blood Count 8.4 K/mm3 (4.5-10.0)
[2023-08-08 12:07] LABS: Magnesium 1.8 mg/dL (1.6-2.3)
[2023-08-08] MEDS: cilostazoL 100 MG TABLET PO (16:52)
[2023-08-08] MEDS: traMADol HCL (*CRX) 50 MG TABLET PO (18:42)
[2023-08-08] MEDS: HYDROmorphone HCL INJ (*CRX) 1 MG/ML SYR IV PUSH (20:57)
[2023-08-09 04:34] VITALS: BP 121/74; PULSE 74; RESP 16; TEMP 36.6; O2SAT 97
[2023-08-09 06:51] LABS: Basophils Percent Auto 0.1 % (0.2-1.2); Eosinophils Percent Auto 0.1 % (0-4.4); Hematocrit 31.5 % (42.0-52.0); Hemoglobin 10.4 g/dL (14.0-18.0); Immature Granulocyte Absolute 0.09 K/mm3 (0.00-0.031); Immature Granulocyte Percent A 0.6 % (0-0.5); Lymphocytes Absolute Auto 1.33 K/mm3 (0.9-3.2); Lymphocytes Percent Auto 9.4 % (18.3-44.2); Mean Corpuscular Hemoglobin 27.6 pg (26-34); Mean Corpuscular Volume 83.6 fl (80-100); Mean Platelet Volume 8.4 fl (7.4-10.4); Monocytes Absolute Auto 1.2 K/mm3 (0.1-0.6); Monocytes Percent Auto 8.5 % (2.6-8.5); Neutrophils Absolute Auto 11.5 K/mm3 (1.3-6.7); Neutrophils Percent Auto 81.3 % (45.5-73.1); Platelet Count Result 228 k/mm3 (150-375); Red Blood Count 3.77 M/mm3 (4.6-6.20); White Blood Count 14.1 K/mm3 (4.5-10.0)
[2023-08-09 07:11] LABS: Alanine Aminotransferase 13 U/L (6-50); Albumin Level 3.1 g/dL (3.5-5.1); Alkaline Phosphatase 214 U/L (38-126); Anion Gap 1 mmol/L (8-16); Aspartate Amino Transferase 61 U/L (17-59); Bilirubin,Total 0.3 mg/dL (0.2-1.3); Blood Urea Nitrogen 16 mg/dL (9-20); Calcium 8.5 mg/dL (8.4-10.2); Carbon Dioxide 25 mmol/L (22-30); Chloride 94 mmol/L (98-107); Estimated CRCL calculation 106 ml/min; Estimated Glomerular Filt Rate > 60; Glucose 87 mg/dL (65-110); Potassium 4.2 mmol/L (3.4-5.0); Sodium 120 mmol/L (137-145)
[2023-08-09 08:00] VITALS: PULSE 74; RESP 16; O2SAT 97
[2023-08-09] MEDS: cilostazoL 100 MG TABLET PO ×2 (08:15→16:38)
[2023-08-09] MEDS: LIDOCAINE 5% PATCH 1 PATCH TRANSDERM (08:15)
[2023-08-09] MEDS: CYCLOBENZAPRINE HCL 5 MG TABLET PO ×2 (08:15→20:52)
[2023-08-09] MEDS: oxyBUTYnin CHLORIDE 5 MG TABLET PO (08:15)
[2023-08-09] MEDS: amLODIPine BESYLATE 5 MG TABLET PO (08:15)
[2023-08-09] MEDS: PRAVASTATIN SODIUM 20 MG TABLET PO (08:15)
[2023-08-09] MEDS: LOSARTAN POTASSIUM 100 MG TABLET PO (08:15)
--- NOTE | 2023-08-09 08:28 | PM.IMPN ---
Progress Note: A&P Assessment and Plan (1) Lytic bone lesions on xray: Code(s): M89.9 - Disorder of bone, unspecified Status: Chronic Assessment and Plan: Patient presented to the hospital for worsening back pain. Lumbar CT 08/07/23: revealed lytic and sclerotic lesions of the visualized osseous structures with pelvic and retroperitoneal lymphadenopathy, consistent with metastatic disease and moderate to severe lumbar spondylosis. Abdomen/pelvis CT 08/08/23: Extensive lymphadenopathy along the periaortic and external iliac chain regions possibly reflecting lymphoma vs other metastatic disease with mild pathologic compression fracture of T12. Lytic lesions seen on previous imaging on 04/27/23. Analgesics PT/OT heme/onc consulted (2) Hyponatremia: Code(s): E87.1 - Hypo-osmolality and hyponatremia Status: Chronic Assessment and Plan: On admission Na 116. Patient received 3% NS IV which increased Na 122. He then received another course of 3% NS which did not impact his current Na level. Patient remains hyponatremic likely due to poor oral intake and known lytic lesions. Placed on fluid restriction and SIADH labs ordered. Serial sodium levels Seizure precautions Serum osmolality pending Urine osmolality pending Urine sodium pending (3) Alcohol abuse: Code(s): F10.10 - Alcohol abuse, uncomplicated Status: Chronic Assessment and Plan: Patient reports drinking two 10 packs of beer and whiskey daily for as long as he can remember. He completely quit drinking on 01/09/23. He endorsed 2-3 days of shakes, but denied all other withdrawal symptoms. Time Spent With Patient Time with patient: 25 - 35 minutes Subjective Date/time seen: 08/09/23 08:28 Interval history: This is a 78-year-old male who presented to the hospital on 08/07/2023 for evaluation of back pain that has progressively gotten worse over the past 24 hours.? Patient is pleasant sitting up in bed eating lunch. He continues to endorse mid back pain that he describes as an aching sensation. He notes that the pain is well controlled on the current pain regimen. Discussed with him that Heme/Onc was consulted for the lytic lesions on imaging due to concern for metastatic disease. He states understanding at this time. He denies chest pain, shortness of breath, nausea/ vomiting and changes in urination. Review of Systems Review of Systems: All systems reviewed & are unremarkable except as noted in HPI and below Exam Narrative: AF HR 70 RR 16 SpO2 96 BP 110/56 General: male in no acute respiratory distress who is nontoxic appearing, lying semi recumbent in bed. HEENT: Normocephalic. Atraumatic. Pupils equal round reactive to light. Extraocular movement intact. Sclera clear and anicteric. No facial asymmetry. Chest: Lungs are clear to auscultation bilaterally. No wheezes or crackles. CV: Heart was regular rate and rhythm. S1/S2. No murmurs, gallops, or rubs. Abd: Abdomen was soft. Nontender. Nondistended. Positive bowel sounds. No organomegaly or masses. Ext: No clubbing, cyanosis, or edema. 2+ DP pulses bilaterally. Neuro: Patient is alert and oriented x4. Speech is clear. Psych: Normal mood and affect. Patient is pleasant and cooperative. Skin: Warm and dry. No rashes noted. Objective Data Vital Signs Vital Signs: Vital Signs - 24 hr 08/08/23 12:01 08/08/23 14:00 08/08/23 15:09 Temperature 97.5 F L Pulse Rate 101 H Respiratory Rate 12 Blood Pressure 97/60 L Pulse Oximetry 91 Oxygen Delivery Room Air Room Air 08/08/23 20:24 08/08/23 20:00 08/09/23 04:34 Temperature 98.6 F 97.8 F Pulse Rate 80 80 74 Respiratory Rate 16 16 16 Blood Pressure 131/61 121/74 Pulse Oximetry 93 93 97 Oxygen Delivery Room Air Intake/Output Intake/Output: Intake & Output 08/06/23 08/07/23 08/08/23 08/09/23 23:59 23:59 23:59 23:59 Intake Total 1838 Output Total 2500 Balance
[2023-08-09 09:09] LABS: Sodium 122 mmol/L (137-145)
[2023-08-09 13:10] LABS: Sodium 125 mmol/L (137-145)
[2023-08-09 14:00] VITALS: BP 110/53; PULSE 70; RESP 16; TEMP 36; O2SAT 96
--- NOTE | 2023-08-09 14:00 | PM.CNNEP ---
Assessment and Plan Assessment and plan (1) Hyponatremia: Code(s): E87.1 - Hypo-osmolality and hyponatremia Status: Chronic Assessment and Plan: acute on chronic seems to run ~ 129 - 134 in the last few years however, he has had low sodiums as far back as 2012.... multiple risk factors noted suspected malignancy (lytic lesions on spine) pulmonary lesion known history of COPD acute pain excess free water intake (?) previous evaluation reviewed (Apr 2023 admission): TSH okay cortisol within normal limits SPEP/UPEP negative CT of head negative CT of chest with emphysema changes and lung nodule s/p 3% saline x 2 to date agree with fluid restriction consider adding salt tabs with low dose lasix follow trend of repeat sodium levels (2) Back pain: Code(s): M54.9 - Dorsalgia, unspecified Status: Acute Assessment and Plan: reasonable pain control continue supportive therap (3) 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 Thank you for allowing me to participate in the care of this patient. History of Present Illness Reason for Consult Consult date: 08/09/23 Reason for consult: hypernatremia (acute on chronic) Chief Complaint Chief complaint: Intractable back pain History of Present Illness Narrative: The patient is a 78-year-old male with a past medical history as outlined below who presented to [facility] Emergency Room with intractable back pain that seems to have progressively worsened in the last 24 - 48 hours. Aside from the intractable back pain, he had no other symptoms or issues with regard to fevers, chills, nausea, vomiting, abdominal pain, diarrhea, chest pain, or shortness of breath. The back pain is localized to his mid / lower back at the time of his presentation. conservative therapy with heating pads topical agents, and [id number] medications have not helped his symptoms to any extent. Given the progressive nature of his back pain, he presented to the emergency room for further assessment. Workup and evaluation emergency room demonstrated the patient be hemodynamically stable but in [id number] distress. Routine blood test demonstrated a mildly elevated white blood cell count, normal hemoglobin/ hematocrit, and normal platelet count. His chemistry showed normal renal function but his sodium level was quite low at 116. Based on review of the ER records, despite his low sodium level, he was otherwise asymptomatic. subsequent lumbar CT scan demonstrated moderate to severe lumbar spondylosis, lytic and sclerotic lesions of the osseous structures with pelvic and retroperitoneal lymphadenopathy consistent with metastatic disease. A CT scan of his abdomen pelvis demonstrate extensive lymphadenopathy which could reflect lymphoma versus some other metastatic disease along with the a for mention extensive sclerotic osseous lesions and probable pathological compression fracture of T12 in conjunction with constipation and enlarged prostate. Given his intractable pain as well as his significant hyponatremia, he received a combination of [place], Flexeril, Toradol, Dilaudid, and Decadron along with a 1 L normal saline bolus and 3% saline. He was subsequently admitted to the hospital for further evaluation therapy. Since his admission, his sodium level did improve with the 3% saline and he apparently received another round of this but his sodium level remains stable at 123. He was just recently instituted on a fluid restriction and hematology/oncology has been consulted with regard to the lytic lesions and suspected metastatic disease. Renal consultation was request
[2023-08-09 17:20] LABS: Sodium Urine Random 16 meq/L
[2023-08-09 17:31] LABS: Appearance Urine Clear (Clear); Color Urine Yellow (Yellow); Specific Grav Ur 1.015 (1.001-1.035); pH Urine 6.5 (5.0-9.0)
[2023-08-09 17:32] LABS: Add Urine Microscopic? NO; Bilirubin Urine Negative (Negative); Blood Urine Negative (Negative); Glucose Urine UA Negative (Negative); Ketones Urine Negative (Negative); Leukocyte Esterase Ur Negative LEU/UL (Negative); Nitrate Urine Negative (Negative); Protein Urine Negative (Negative); Urobilinogen Urine 0.2 mg/dL (<2.0)
[2023-08-09 17:52] LABS: Sodium 125 mmol/L (137-145)
[2023-08-09 20:44] VITALS: BP 128/64; PULSE 70; RESP 16; TEMP 36.7; O2SAT 90
[2023-08-09 21:32] LABS: Sodium 125 mmol/L (137-145)
[2023-08-10 01:01] LABS: Sodium 125 mmol/L (137-145)
[2023-08-10 04:30] VITALS: BP 151/64; PULSE 81; RESP 16; TEMP 36.6; O2SAT 92
[2023-08-10 07:20] LABS: Basophils Absolute Auto 0.1 K/mm3 (0.0-0.1); Basophils Percent Auto 0.4 % (0.2-1.2); Eosinophils Absolute Auto 0.1 K/mm3 (0-0.3); Eosinophils Percent Auto 0.8 % (0-4.4); Hematocrit 36.2 % (42.0-52.0); Hemoglobin 11.8 g/dL (14.0-18.0); Immature Granulocyte Absolute 0.14 K/mm3 (0.00-0.031); Immature Granulocyte Percent A 1.2 % (0-0.5); Lymphocytes Absolute Auto 1.88 K/mm3 (0.9-3.2); Lymphocytes Percent Auto 16.1 % (18.3-44.2); Mean Corpuscular HGB Conc 32.6 g/dl (32-36); Mean Corpuscular Hemoglobin 27.6 pg (26-34); Mean Corpuscular Volume 84.6 fl (80-100); Mean Platelet Volume 8.1 fl (7.4-10.4); Monocytes Absolute Auto 1.2 K/mm3 (0.1-0.6); Monocytes Percent Auto 9.9 % (2.6-8.5); Neutrophils Absolute Auto 8.3 K/mm3 (1.3-6.7); Neutrophils Percent Auto 71.6 % (45.5-73.1); Platelet Count Result 268 k/mm3 (150-375); Red Blood Count 4.28 M/mm3 (4.6-6.20); Red Cell Distribution Width 13.4 % (11.5-14.5); White Blood Count 11.7 K/mm3 (4.5-10.0)
[2023-08-10 07:36] LABS: Alanine Aminotransferase 20 U/L (6-50); Albumin Level 3.5 g/dL (3.5-5.1); Alkaline Phosphatase 236 U/L (38-126); Anion Gap 4 mmol/L (8-16); Aspartate Amino Transferase 52 U/L (17-59); Bilirubin,Total 0.4 mg/dL (0.2-1.3); Blood Urea Nitrogen 12 mg/dL (9-20); Calcium 8.6 mg/dL (8.4-10.2); Carbon Dioxide 28 mmol/L (22-30); Chloride 95 mmol/L (98-107); Estimated CRCL calculation 90 ml/min; Estimated Glomerular Filt Rate > 60; Glucose 93 mg/dL (65-110); Potassium 3.5 mmol/L (3.4-5.0); Sodium 127 mmol/L (137-145)
--- NOTE | 2023-08-10 07:38 | PM.IMPN ---
Progress Note: A&P Assessment and Plan (1) Lytic bone lesions on xray: Code(s): M89.9 - Disorder of bone, unspecified Status: Chronic Assessment and Plan: Patient presented to the hospital for worsening back pain. Lumbar CT 08/07/23: revealed lytic and sclerotic lesions of the visualized osseous structures with pelvic and retroperitoneal lymphadenopathy, consistent with metastatic disease and moderate to severe lumbar spondylosis. Abdomen/pelvis CT 08/08/23: Extensive lymphadenopathy along the periaortic and external iliac chain regions possibly reflecting lymphoma vs other metastatic disease with mild pathologic compression fracture of T12. Lytic lesions seen on previous imaging on 04/27/23. Analgesics PT/OT heme/onc consulted (2) Hyponatremia: Code(s): E87.1 - Hypo-osmolality and hyponatremia Status: Chronic Assessment and Plan: On admission Na 116. Patient received 3% NS IV which increased Na 122. He then received another course of 3% NS which did not impact his current Na level. Patient remains hyponatremic likely due to poor oral intake and known lytic lesions. Placed on fluid restriction and SIADH labs ordered. Serial sodium levels Seizure precautions Serum osmolality pending Urine osmolality pending Urine sodium pending Nephrology consulted (3) COPD (chronic obstructive pulmonary disease): Code(s): J44.9 - Chronic obstructive pulmonary disease, unspecified Status: Acute Assessment and Plan: Not in acute exacerbation. (4) Alcohol abuse: Code(s): F10.10 - Alcohol abuse, uncomplicated Status: Chronic Assessment and Plan: Patient reports drinking two 10 packs of beer and whiskey daily for as long as he can remember. He completely quit drinking on 01/09/23. He endorsed 2-3 days of shakes, but denied all other withdrawal symptoms. (5) Nicotine dependence: Code(s): F17.200 - Nicotine dependence, unspecified, uncomplicated Status: Acute Assessment and Plan: Patient smokes 1.25 pack/day. Strongly encouraged smoking cessation especially with COPD history. Time Spent With Patient Time with patient: 25 - 35 minutes Subjective Date/time seen: 08/10/23 07:38 Interval history: This is a 78-year-old male who presented to the hospital on 08/07/2023 for evaluation of back pain that has progressively gotten worse over the past 24 hours.? Patient is pleasant sitting up in bed eating breakfast. He endorses mild mid back pain, but notes that the pain medication is keeping it well controlled. He reports the pain a 2-3/10. Continued to discuss with the patient that Heme/Onc has been consulted for concern for metastatic disease. Patient asked what the cause of this pain could be and I told him that the lesions on his spine are concerning for cancer is likely causing this pain. He states understanding. He denies weakness and reports feeling steady on his feet. He continues to deny shortness of breath, chest pain, nausea/vomiting, and changes in bowel/bladder. Review of Systems Review of Systems: All systems reviewed & are unremarkable except as noted in HPI and below Exam Narrative: AF HR 70 RR 16 SpO2 96 BP 110/53 General: male in no acute respiratory distress who is nontoxic appearing, lying semi recumbent in bed. HEENT: Normocephalic. Atraumatic. Pupils equal round reactive to light. Extraocular movement intact. Sclera clear and anicteric. No facial asymmetry. Chest: Lungs are clear to auscultation bilaterally. No wheezes or crackles. CV: Heart was regular rate and rhythm. S1/S2. No murmurs, gallops, or rubs. Abd: Abdomen was soft. Nontender. Nondistended. Positive bowel sounds. No organomegaly or masses. Ext: No clubbing, cyanosis, or edema. 2+ DP pulses bilaterally. Neuro: Patient is alert and oriented x4. 5/5 strength in upper and lower extremity. Speech is clear. Psych: Normal mood and affect. Patient is pleasant and cooperative.
[2023-08-10 08:00] VITALS: PULSE 81; RESP 16; O2SAT 92
[2023-08-10] MEDS: PRAVASTATIN SODIUM 20 MG TABLET PO (08:37)
[2023-08-10] MEDS: oxyBUTYnin CHLORIDE 5 MG TABLET PO (08:37)
[2023-08-10] MEDS: CYCLOBENZAPRINE HCL 5 MG TABLET PO ×2 (08:37→21:37)
[2023-08-10] MEDS: amLODIPine BESYLATE 5 MG TABLET PO (08:38)
[2023-08-10] MEDS: LOSARTAN POTASSIUM 100 MG TABLET PO (08:38)
[2023-08-10] MEDS: cilostazoL 100 MG TABLET PO ×2 (08:38→16:43)
--- NOTE | 2023-08-10 12:28 | P.PNNP_ITS ---
Progress Note: A&P Assessment and Plan (1) Hyponatremia: Code(s): E87.1 - Hypo-osmolality and hyponatremia Status: Chronic Assessment and Plan: * improvement noted * acute on chronic * seems to run ~ 129 - 134 in the last few years * however, he has had low sodiums as far back as 2012.... * multiple risk factors noted * suspected malignancy (lytic lesions on spine) * pulmonary lesion * known history of COPD * acute pain * excess free water intake (?) * previous evaluation reviewed (Apr 2023 admission): * TSH okay * cortisol within normal limits * SPEP/UPEP negative * CT of head negative * CT of chest with emphysema changes and lung nodule * s/p 3% saline x 2 since admission * agree with fluid restriction * consider adding salt tabs with low dose lasix * follow trend of repeat sodium levels (2) Back pain: Code(s): M54.9 - Dorsalgia, unspecified Status: Acute Assessment and Plan: * reasonable pain control * continue supportive therap (3) Lytic bone lesions on xray: Code(s): M89.9 - Disorder of bone, unspecified Status: Chronic Assessment and Plan: * noted on previous admission * Hem/Onc consulted for further work-up Will continue to follow. Subjective Date/time seen: 08/10/23 12:28 Interval history: Follow-up for acute on chronic hyponatremia. No apparent distress voiced at the time of my visit; sodium level continues to slowly improve with current interventions/therapy; pain control appears satisfactory; no other acute issue/concerns voiced at this time; no apparent distress to report currently. Exam Narrative: General: elderly but WD/WN male in NAD Heart: normal S1 and S2; no rub Lungs: clear to auscultation Abdomen: soft, nontender, nondistended, positive bowel sounds Extremities: no cyanosis or clubbing; no edema Skin: warm and dry Objective Data Vital Signs Vital Signs: Vital Signs Temp Pulse Resp BP Pulse Ox O2 Del Method 08/10/23 12:00 98.7 F 84 16 136/56 L 94 08/10/23 08:00 81 16 92 Room Air 08/10/23 04:30 97.9 F 81 16 151/64 H 92 08/09/23 20:44 98.0 F 70 16 128/64 90 Intake/Output Intake/Output: Intake & Output 08/07/23 08/08/23 08/09/23 08/10/23 23:59 23:59 23:59 23:59 Intake Total 1838 1320 600 Output Total 3814 95 1280 Balance -662 1225 -431 Meds/Results Medications: Active Medications Generic Name Dose Route Start Last Admin Trade Name Freq PRN Reason Stop Dose Admin Acetaminophen 1,000 mg 08/08/23 02:50 Acetaminophen 500 Mg Tablet PO Q6H PRN Mild Pain (1-3) or Fever Amlodipine Besylate 5 mg 08/08/23 10:30 08/10/23 08:38 Amlodipine Besylate 5 Mg Tablet PO 5 mg DAILY SELWYN Administration Cilostazol 100 mg 08/08/23 17:00 08/10/23 16:43 Cilostazol 100 Mg Tablet PO 100 mg BID SELWYN Administration Cyclobenzaprine HCl 5 mg 08/08/23 10:25 08/10/23 08:37 Cyclobenzaprine Hcl 5 Mg Tablet PO 5 mg Q12HR SELWYN Administration Hydromorphone HCl 1 mg 08/08/23 02:50 08/08/23 20:57 Hydromorphone Hcl
--- NOTE | 2023-08-10 12:28 | PM.PNNEP ---
Progress Note: A&P Assessment and Plan (1) Hyponatremia: Code(s): E87.1 - Hypo-osmolality and hyponatremia Status: Chronic Assessment and Plan: improvement noted acute on chronic seems to run ~ 129 - 134 in the last few years however, he has had low sodiums as far back as 2012.... multiple risk factors noted suspected malignancy (lytic lesions on spine) pulmonary lesion known history of COPD acute pain excess free water intake (?) previous evaluation reviewed (Apr 2023 admission): TSH okay cortisol within normal limits SPEP/UPEP negative CT of head negative CT of chest with emphysema changes and lung nodule s/p 3% saline x 2 since admission agree with fluid restriction consider adding salt tabs with low dose lasix follow trend of repeat sodium levels (2) Back pain: Code(s): M54.9 - Dorsalgia, unspecified Status: Acute Assessment and Plan: reasonable pain control continue supportive therap (3) 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 Subjective Date/time seen: 08/10/23 12:28 Interval history: Follow-up for acute on chronic hyponatremia. No apparent distress voiced at the time of my visit; sodium level continues to slowly improve with current interventions/therapy; pain control appears satisfactory; no other acute issue/concerns voiced at this time; no apparent distress to report currently. Exam Narrative: General: elderly but WD/WN male in NAD Heart: normal S1 and S2; no rub Lungs: clear to auscultation Abdomen: soft, nontender, nondistended, positive bowel sounds Extremities: no cyanosis or clubbing; no edema Skin: warm and dry Objective Data Vital Signs Vital Signs: Vital Signs Temp Pulse Resp BP Pulse Ox O2 Del Method 08/10/23 12:00 98.7 F 84 16 136/56 L 94 08/10/23 08:00 81 16 92 Room Air 08/10/23 04:30 97.9 F 81 16 151/64 H 92 08/09/23 20:44 98.0 F 70 16 128/64 90 Intake/Output Intake/Output: Intake & Output 08/07/23 08/08/23 08/09/23 08/10/23 23:59 23:59 23:59 23:59 Intake Total 1838 1320 600 Output Total 6345 98 1280 Balance -662 1225 -775 Meds/Results Medications: Active Medications Generic Name Dose Route Start Last Admin Trade Name Freq PRN Reason Stop Dose Admin Acetaminophen 1,000 mg 08/08/23 02:50 Acetaminophen 500 Mg Tablet PO Q6H PRN Mild Pain (1-3) or Fever Amlodipine Besylate 5 mg 08/08/23 10:30 08/10/23 08:38 Amlodipine Besylate 5 Mg Tablet PO 5 mg DAILY SELWYN Administration Cilostazol 100 mg 08/08/23 17:00 08/10/23 16:43 Cilostazol 100 Mg Tablet PO 100 mg BID SELWYN Administration Cyclobenzaprine HCl 5 mg 08/08/23 10:25 08/10/23 08:37 Cyclobenzaprine Hcl 5 Mg Tablet PO 5 mg Q12HR SELWYN Administration Hydromorphone HCl 1 mg 08/08/23 02:50 08/08/23 20:57 Hydromorphone Hcl Inj (*Crx) 1 Mg/Ml Syr IV PUSH 1 mg Q3H PRN Administration Pain Rated 7-10 Lidocaine 1 patch 08/08/23 10:30 08/10/23 16:42 Lidocaine 5% Patch TRANSDERM Not Given DAILY [facility] Losartan Potassium 100 mg 08/08/23 10:30 08/10/23 08:38 Losartan Potassium 100 Mg Tablet PO 100 mg DAILY SELWYN Administration Oxybutynin Chloride 5 mg 08/08/23 10:30 08/10/23 08:37 Oxybutynin Chloride 5 Mg Tablet PO 5 mg DAILY SELWYN Administration Pravastatin Sodium 20 mg 08/08/23 10:30 08/10/23 08:37 Pravastatin Sodium 20 Mg Tablet PO 20 mg DAILY SELWYN Administration Tramadol HCl 50 mg 08/08/23 02:50 08/08/23 18:42 Tramadol Hcl (*Crx) 50 Mg Tablet PO 50 mg Q6H PRN Administration Pain Rated 4-6 Radiology Results: ITS Impressions Lumbar Spine CT 08/07/23 22:10 IMPRESSION: 1. Moderate to
[2023-08-10 14:00] VITALS: BP 136/56; PULSE 84; RESP 16; TEMP 37.1; O2SAT 94
[2023-08-10 20:54] VITALS: BP 130/61; PULSE 93; RESP 16; TEMP 36.9; O2SAT 90
[2023-08-11 04:26] VITALS: BP 130/57; PULSE 97; RESP 16; TEMP 36.6; O2SAT 90
[2023-08-11 06:09] LABS: Basophils Percent Auto 0.3 % (0.2-1.2); Eosinophils Percent Auto 0.2 % (0-4.4); Hemoglobin 11.6 g/dL (14.0-18.0); Immature Granulocyte Absolute 0.07 K/mm3 (0.00-0.031); Immature Granulocyte Percent A 0.6 % (0-0.5); Lymphocytes Absolute Auto 1.43 K/mm3 (0.9-3.2); Lymphocytes Percent Auto 12.7 % (18.3-44.2); Mean Corpuscular HGB Conc 33.1 g/dl (32-36); Mean Corpuscular Hemoglobin 27.6 pg (26-34); Mean Corpuscular Volume 83.3 fl (80-100); Mean Platelet Volume 7.7 fl (7.4-10.4); Monocytes Absolute Auto 1.5 K/mm3 (0.1-0.6); Monocytes Percent Auto 13.6 % (2.6-8.5); Neutrophils Absolute Auto 8.2 K/mm3 (1.3-6.7); Neutrophils Percent Auto 72.6 % (45.5-73.1); Platelet Count Result 258 k/mm3 (150-375); Red Cell Distribution Width 13.4 % (11.5-14.5); White Blood Count 11.2 K/mm3 (4.5-10.0)
[2023-08-11 06:18] LABS: Alanine Aminotransferase 20 U/L (6-50); Albumin Level 3.4 g/dL (3.5-5.1); Alkaline Phosphatase 211 U/L (38-126); Anion Gap 6 mmol/L (8-16); Aspartate Amino Transferase 40 U/L (17-59); Bilirubin,Total 0.7 mg/dL (0.2-1.3); Blood Urea Nitrogen 10 mg/dL (9-20); Calcium 8.6 mg/dL (8.4-10.2); Carbon Dioxide 24 mmol/L (22-30); Chloride 93 mmol/L (98-107); Estimated CRCL calculation 106 ml/min; Estimated Glomerular Filt Rate > 60; Glucose 103 mg/dL (65-110); Potassium 3.9 mmol/L (3.4-5.0); Sodium 123 mmol/L (137-145)
[2023-08-11 06:20] LABS: Prothrombin Time 13.8 Seconds (11.1-14.7)
[2023-08-11 06:21] LABS: Fibrinogen 409 mg/dl (215-510); Partial Thromboplastin Time 32.1 Seconds (22.3-36.8)
[2023-08-11 06:23] LABS: Iron 22 ug/dL (49-181)
[2023-08-11 06:32] LABS: Percent Iron Saturation 9 % (20-50)
[2023-08-11 08:00] VITALS: PULSE 84; RESP 22; O2SAT 93
[2023-08-11] MEDS: PRAVASTATIN SODIUM 20 MG TABLET PO (08:28)
[2023-08-11] MEDS: LOSARTAN POTASSIUM 100 MG TABLET PO (08:28)
[2023-08-11] MEDS: CYCLOBENZAPRINE HCL 5 MG TABLET PO ×2 (08:28→20:41)
[2023-08-11] MEDS: oxyBUTYnin CHLORIDE 5 MG TABLET PO (08:28)
[2023-08-11] MEDS: amLODIPine BESYLATE 5 MG TABLET PO (08:28)
[2023-08-11] MEDS: cilostazoL 100 MG TABLET PO ×2 (08:28→16:50)
[2023-08-11] MEDS: CYANOCOBALAMIN 1,000 MCG TABLET 1000 MCG PO (08:34)
[2023-08-11] MEDS: FERROUS SULFATE 325 MG TABLET DR PO ×2 (08:34→16:50)
[2023-08-11] MEDS: IRON SUCROSE COMPLEX 500 MG in SODIUM CHLORIDE 0.9% IV 250 ML 79 MG IVPB (09:15)
--- NOTE | 2023-08-11 09:34 | PDONCCN ---
HPI - Date of Consult Date/Time: 08/11/23 17:16 <JesusGeovanni Ruben - 08/11/23 17:18> 08/11/23 09:34 <Barbara Garcia - 08/11/23 09:37> Requesting Physician: Redd Chopra MD <Geovanni Lee - 08/11/23 17:18> Redd Chopra MD <Barbara Garcia - 08/11/23 09:37> Primary Care Provider: Nik Huff APRN <Geovanni Lee - 08/11/23 17:18> Nik Huff APRN <Barbara Garcia 08/11/23 09:37> - Consult Narrative Reason for consult: Metastatic Lymphoma <JoseBarbara 08/11/23 09:37> Narrative: Darryl Murphy is a 78 year old male <Jesus,Geovanni Ruben - 08/11/23 17:18> Darryl Murphy is a 78 year old male with a past medical history of COPD, HLD, and alcohol dependence. He was admitted to the hospital for severe back pain. He reports a history of back pain since he was 21 years old but this is more severe. He denies any surgeries, PT/OT to his back in the past. He reports a GI bleed 2 months ago and had a colonoscopy recently. He has a smoker of 1 pack/day for 64+ years. He quit alcohol use in Feb 2024. 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 He was in [place] war and could have been exposed to chemicals. He reports weight loss over the last year. Denies any fevers, chills, lymphadenopathy, or night sweats. CT abd/pelvis scan that shows lytic and sclerotic lesions in osseous structures and retroperitoneal lymphadenopathy. <Barbara Garcia 08/11/23 09:50> Review of Systems - Review of Systems All systems reviewed & are unremarkable except as noted in HPI and bel <Barbara Garcia 08/11/23 09:45> - Neurologic Reports system reviewed and no additional complaints, except as documented, Denies vertigo, Denies focal weakness, Denies sensory deficit <Barbara Garcia 08/11/23 09:37> PMFSH Medical History: Medical History (Last Updated 08/09/23 @ 09:39 by Vilma Sue PA-C) COPD (chronic obstructive pulmonary disease) Essential hypertension Hyperlipidemia Hyponatremia Peripheral arterial disease <Geovanni Lee - 08/11/23 17:18> Medical History (Last Updated 08/09/23 @ 09:39 by Vilma Sue PA-C) COPD (chronic obstructive pulmonary disease) Essential hypertension Hyperlipidemia Hyponatremia Peripheral arterial disease <Barbara Garcia - 08/11/23 09:37> Family History: Family History (Last Reviewed 07/09/23 @ 09:45 by Dilip Castro MD) Sibling Hypertension Mother Family history of chronic obstructive pulmonary disease Father Family history of lung cancer <Geovanni Lee - 08/11/23 17:18> Family History (Last Reviewed 07/09/23 @ 09:45 by Dilip Castro MD) Sibling Hypertension Mother Family history of chronic obstructive pulmonary disease Father Family history of lung cancer <Barbara Garcia - 08/11/23 09:37> - Social History Social History: Social History (Last Reviewed 07/09/23 @ 09:45 by Dilip Castro MD) Alcohol Use: Alcohol intake: former Drinks per week: 70 Alcohol use details: beer Substance Use: Substance use: current Substance use type: does not use Others: Spiritual care concerns: No Living Arrangements: Living arrangements: alone Smoking Status: Smoking status: Current every day smoker Tobacco type: cigarettes Second hand tobacco smoke exposure: Yes Smoking Pack-years: Smoking packs per day: 1.5 Smoking cigarettes per day: 30.0 Years smoked: 60 Smoking pack-years: 90.00 Social Determinants of Health: Do You Feel Safe in your Home?: Yes Has the Lack of Transportation Kept You From Medical Appointments or From Getting Medications?: No Within the Past 12 Months, Were You Worried Whether Your Food Would Run Out Before You Got Money to Buy More?: Never True What is Your Housing Situation Today?: I Have Housing Are You Worried That in the Next 2
--- NOTE | 2023-08-11 10:13 | PM.PNNEP ---
Progress Note: A&P Assessment and Plan (1) Hyponatremia: Code(s): E87.1 - Hypo-osmolality and hyponatremia Status: Chronic Assessment and Plan: continue to fluctuate acute on chronic seems to run ~ 129 - 134 in the last few years however, he has had low sodiums as far back as 2012.... multiple risk factors noted suspected malignancy (lytic lesions on spine) pulmonary lesion known history of COPD acute pain excess free water intake (?) previous evaluation reviewed (Apr 2023 admission): TSH okay cortisol within normal limits SPEP/UPEP negative CT of head negative CT of chest with emphysema changes and lung nodule s/p 3% saline x 2 since admission continue fluid restriction will add salt tabs with low dose lasix follow trend of repeat sodium levels (2) Back pain: Code(s): M54.9 - Dorsalgia, unspecified Status: Acute Assessment and Plan: reasonable pain control continue supportive therap (3) Lytic bone lesions on xray: Code(s): M89.9 - Disorder of bone, unspecified Status: Chronic Assessment and Plan: noted on previous admission Hem/Onc recommendations noted Will continue to follow. Subjective Date/time seen: 08/11/23 10:13 Interval history: Follow-up for acute on chronic hyponatremia. Sodium down by AM labs today in comparison to yesterday; however, much as on admission, remains asymptomatic from this issue; pain control remains satisfatory; eating and drinking okay; no apparent distress voiced at the time of my visit. Exam Narrative: General: elderly but WD/WN male in NAD Heart: normal S1 and S2; no rub Lungs: clear to auscultation Abdomen: soft, nontender, nondistended, positive bowel sounds Extremities: no cyanosis or clubbing; no edema Skin: warm and intact Objective Data Vital Signs Vital Signs: Vital Signs Temp Pulse Resp BP Pulse Ox 08/11/23 04:26 97.9 F 97 16 130/57 L 90 08/10/23 20:54 98.4 F 93 16 130/61 90 08/10/23 14:00 98.7 F 84 16 136/56 L 94 Intake/Output Intake/Output: Intake & Output 08/08/23 08/09/23 08/10/23 08/11/23 23:59 23:59 23:59 23:59 Intake Total 1838 1320 710 0 Output Total 2500 95 1280 Balance -662 1225 -570 0 Meds/Results Medications: Active Medications Generic Name Dose Route Start Last Admin Trade Name Raúlq PRN Reason Stop Dose Admin Acetaminophen 1,000 mg 08/08/23 02:50 Acetaminophen 500 Mg Tablet PO Q6H PRN Mild Pain (1-3) or Fever Amlodipine Besylate 5 mg 08/08/23 10:30 08/11/23 08:28 Amlodipine Besylate 5 Mg Tablet PO 5 mg DAILY SELWYN Administration Cilostazol 100 mg 08/08/23 17:00 08/11/23 08:28 Cilostazol 100 Mg Tablet PO 100 mg BID SELWYN Administration Cyanocobalamin 1,000 mcg 08/11/23 09:00 08/11/23 08:34 Cyanocobalamin 1,000 Mcg Tablet PO 1,000 mcg QAM SELWYN Administration Cyclobenzaprine HCl 5 mg 08/08/23 10:25 08/11/23 08:28 Cyclobenzaprine Hcl 5 Mg Tablet PO 5 mg Q12HR SELWYN Administration Ferrous Sulfate 325 mg 08/11/23 09:00 08/11/23 08:34 Ferrous Sulfate [address] PO 325 mg BID SELWYN Administration Furosemide 10 mg 08/11/23 12:00 Furosemide 10 [address] Table[address] [facility] Hydromorphone HCl 1 mg 08/08/23 02:50 08/08/23 20:57 Hydromorphone Hcl Inj (*Crx) 1 Mg/Ml Syr IV PUSH 1 mg Q3H PRN Administration Pain Rated 7-10 Lidocaine 1 patch 08/08/23 10:30 08/11/23 08:34 Lidocaine 5% Patch TRANSDERM Not Given DAILY [facility] Losartan Potassium 100 mg 08/08/23 10:30 08/11/23 08:28 Losartan Potassium 100 Mg Tablet PO 100 mg DAILY SELWYN Administration Oxybutynin Chloride 5 mg 08/08/23 10:30 08/11/23 08:28 Oxybutynin Chloride 5 Mg Tablet PO 5 mg DAILY SELWYN Administration Pravastatin Sodium 20 mg 08/08/23 10:30 08/11/23 08:28 Pravastatin Sodium 20 Mg Tablet PO [address] [facility] Ad
--- NOTE | 2023-08-11 10:13 | P.PNNP_ITS ---
Progress Note: A&P Assessment and Plan (1) Hyponatremia: Code(s): E87.1 - Hypo-osmolality and hyponatremia Status: Chronic Assessment and Plan: * continue to fluctuate * acute on chronic * seems to run ~ 129 - 134 in the last few years * however, he has had low sodiums as far back as 2012.... * multiple risk factors noted * suspected malignancy (lytic lesions on spine) * pulmonary lesion * known history of COPD * acute pain * excess free water intake (?) * previous evaluation reviewed (Apr 2023 admission): * TSH okay * cortisol within normal limits * SPEP/UPEP negative * CT of head negative * CT of chest with emphysema changes and lung nodule * s/p 3% saline x 2 since admission * continue fluid restriction * will add salt tabs with low dose lasix * follow trend of repeat sodium levels (2) Back pain: Code(s): M54.9 - Dorsalgia, unspecified Status: Acute Assessment and Plan: * reasonable pain control * continue supportive therap (3) Lytic bone lesions on xray: Code(s): M89.9 - Disorder of bone, unspecified Status: Chronic Assessment and Plan: * noted on previous admission * Hem/Onc recommendations noted Will continue to follow. Subjective Date/time seen: 08/11/23 10:13 Interval history: Follow-up for acute on chronic hyponatremia. Sodium down by AM labs today in comparison to yesterday; however, much as on admission, remains asymptomatic from this issue; pain control remains satisfatory; eating and drinking okay; no apparent distress voiced at the time of my visit. Exam Narrative: General: elderly but WD/WN male in NAD Heart: normal S1 and S2; no rub Lungs: clear to auscultation Abdomen: soft, nontender, nondistended, positive bowel sounds Extremities: no cyanosis or clubbing; no edema Skin: warm and intact Objective Data Vital Signs Vital Signs: Vital Signs Temp Pulse Resp BP Pulse Ox 08/11/23 04:26 97.9 F 97 16 130/57 L 90 08/10/23 20:54 98.4 F 93 16 130/61 90 08/10/23 14:00 98.7 F 84 16 136/56 L 94 Intake/Output Intake/Output: Intake & Output 08/08/23 08/09/23 08/10/2324 23:59 23:59 23:59 23:59 Intake Total 1838 1320 710 0 Output Total 1582 95 1280 Balance -662 1225 -570 0 Meds/Results Medications: Active Medications Generic Name Dose Route Start Last Admin Trade Name Raúlq PRN Reason Stop Dose Admin Acetaminophen 1,000 mg 08/08/23 02:50 Acetaminophen 500 Mg Tablet PO Q6H PRN Mild Pain (1-3) or Fever Amlodipine Besylate 5 mg 08/08/23 10:30 08/11/23 08:28 Amlodipine Besylate 5 Mg Tablet PO 5 mg DAILY SELWYN Administration Cilostazol 100 mg 08/08/23 17:00 08/11/23 08:28 Cilostazol 100 Mg Tablet PO 100 mg BID SELWYN Administration Cyanocobalamin 1,000 mcg 08/11/23 09:00 08/11/23 08:34 Cyanocobalamin 1,000 Mcg Tablet PO 1,000 mcg QAM SELWYN Administration Cyclobenzaprine HCl 5 mg 08/08/23 10:25 08/11/23 08:28 Cyclobenzaprine Hcl 5 Mg Tablet PO 5 mg Q12HR SELWYN Administration Ferrous Sulfa
[2023-08-11 10:32] LABS: Lactate Dehydrogenase 210 U/L (120-246)
--- NOTE | 2023-08-11 11:28 | PM.IMPN ---
Progress Note: A&P Assessment and Plan (1) Lytic bone lesions on xray: Code(s): M89.9 - Disorder of bone, unspecified Status: Chronic Assessment and Plan: Patient presented to the hospital for worsening back pain. Lumbar CT 08/07/23: revealed lytic and sclerotic lesions of the visualized osseous structures with pelvic and retroperitoneal lymphadenopathy, consistent with metastatic disease and moderate to severe lumbar spondylosis. Abdomen/pelvis CT 08/08/23: Extensive lymphadenopathy along the periaortic and external iliac chain regions possibly reflecting lymphoma vs other metastatic disease with mild pathologic compression fracture of T12. Lytic lesions seen on previous imaging on 04/27/23. CT chest- Significant progression of lymphadenopathy in the superior mediastinum, the inferior bilateral jugular chains and left supraclavicular region consistent with progression lymphoma. Progression in multiple lytic lesions throughout numerous bones in the spine and thorax most likely related to progression lymphoma. Heme/onc: Plan biopsy once scans are back. He may need a PET scan as an outpatient. Also ordered flow cytometry, LDH, SPEP, and NM bone scan. Analgesics PT/OT (2) Hyponatremia: Code(s): E87.1 - Hypo-osmolality and hyponatremia Status: Chronic Assessment and Plan: On admission Na 116. Patient received 3% NS IV which increased Na 122. He then received another course of 3% NS which did not impact his current Na level. Patient remains hyponatremic likely due to poor oral intake and known lytic lesions. Placed on fluid restriction and SIADH labs ordered. Na 123 today. Nephrology contacted and patient started on low dose lasix and salt tab. Serial sodiums Seizure precautions Salt tab Lasix 10 mg BID Serum osmolality pending Urine osmolality pending Urine sodium 16 (3) Leukocytosis: Code(s): D72.829 - Elevated white blood cell count, unspecified Status: Acute Assessment and Plan: Leukocytosis likely related to ongoing lytic lesions with compression fracture. CT chest shows moderate emphysema with consolidation in the bilateral lower lobes with configuration and associated volume loss favoring atelectasis although there is also some bronchial wall thickening with mucous plugging in the bilateral lower lobes and superimposed bronchitis and/or pneumonia cannot be excluded. WBC trending down without intervention. No signs of active infection. Monitor WBC Mucinex (4) Anemia: Code(s): D64.9 - Anemia, unspecified Status: Acute Assessment and Plan: Chronic anemia. Iron studies showing iron deficiency anemia and low B12. Iron transfusion given. Iron 325 mg BID B12 1000 mg daily (5) COPD (chronic obstructive pulmonary disease): Code(s): J44.9 - Chronic obstructive pulmonary disease, unspecified Status: Acute Assessment and Plan: Not in acute exacerbation. (6) Alcohol abuse: Code(s): F10.10 - Alcohol abuse, uncomplicated Status: Chronic Assessment and Plan: Patient reports drinking two 10 packs of beer and whiskey daily for as long as he can remember. He completely quit drinking on 01/09/23. He endorsed 2-3 days of shakes, but denied all other withdrawal symptoms. (7) Nicotine dependence: Code(s): F17.200 - Nicotine dependence, unspecified, uncomplicated Status: Acute Assessment and Plan: Patient smokes 1.25 pack/day. Strongly encouraged smoking cessation especially with COPD history. Time Spent With Patient Time with patient: 25 - 35 minutes Subjective Date/time seen: 08/11/23 11:28 Interval history: This is a 78-year-old male who presented to the hospital on 08/07/2023 for evaluation of back pain that has progressively gotten worse over the past 24 hours.? Patient is lying comfortably in bed. He continues to have report mild back pain, stating that his current pain medication is helpfu
[2023-08-11 14:00] VITALS: BP 126/53; PULSE 84; RESP 22; TEMP 36.9; O2SAT 93
--- NOTE | 2023-08-11 14:40 | PCPTNOTE ---
Patient out of room for testing, unable to be see for PT at this time. PT will continue to follow per plan of care.
[2023-08-11] MEDS: guaiFENesin 12 HR 600 MG TABCR PO ×2 (14:47→20:41)
[2023-08-11] MEDS: SODIUM CHLORIDE 1 GM TABLET PO ×2 (14:48→16:50)
[2023-08-11] MEDS: FUROSEMIDE 10 MG TABLET PO ×2 (14:48→16:50)
[2023-08-11 20:41] VITALS: BP 117/70; PULSE 89; RESP 20; TEMP 37.1; O2SAT 91
[2023-08-12 04:49] VITALS: BP 139/57; PULSE 95; RESP 16; TEMP 36.4; O2SAT 90
[2023-08-12 07:06] LABS: Basophils Absolute Auto 0.1 K/mm3 (0.0-0.1); Basophils Percent Auto 0.5 % (0.2-1.2); Eosinophils Percent Auto 0.4 % (0-4.4); Hematocrit 34.5 % (42.0-52.0); Hemoglobin 11.5 g/dL (14.0-18.0); Immature Granulocyte Absolute 0.13 K/mm3 (0.00-0.031); Immature Granulocyte Percent A 1.2 % (0-0.5); Lymphocytes Absolute Auto 0.98 K/mm3 (0.9-3.2); Lymphocytes Percent Auto 9.1 % (18.3-44.2); Mean Corpuscular HGB Conc 33.3 g/dl (32-36); Mean Corpuscular Hemoglobin 27.6 pg (26-34); Mean Corpuscular Volume 82.9 fl (80-100); Mean Platelet Volume 8.2 fl (7.4-10.4); Monocytes Absolute Auto 1.1 K/mm3 (0.1-0.6); Monocytes Percent Auto 10.6 % (2.6-8.5); Neutrophils Absolute Auto 8.4 K/mm3 (1.3-6.7); Neutrophils Percent Auto 78.2 % (45.5-73.1); Platelet Count Result 272 k/mm3 (150-375); Red Blood Count 4.16 M/mm3 (4.6-6.20); Red Cell Distribution Width 13.4 % (11.5-14.5); White Blood Count 10.7 K/mm3 (4.5-10.0)
[2023-08-12 07:31] LABS: Alanine Aminotransferase 19 U/L (6-50); Albumin Level 3.4 g/dL (3.5-5.1); Alkaline Phosphatase 205 U/L (38-126); Anion Gap 9 mmol/L (8-16); Aspartate Amino Transferase 41 U/L (17-59); Bilirubin,Total 0.7 mg/dL (0.2-1.3); Blood Urea Nitrogen 10 mg/dL (9-20); Calcium 8.6 mg/dL (8.4-10.2); Carbon Dioxide 21 mmol/L (22-30); Chloride 94 mmol/L (98-107); Estimated CRCL calculation 106 ml/min; Estimated Glomerular Filt Rate > 60; Glucose 88 mg/dL (65-110); Potassium 3.9 mmol/L (3.4-5.0); Sodium 124 mmol/L (137-145)
--- NOTE | 2023-08-12 08:04 | PM.IMPN ---
Progress Note: A&P Assessment and Plan (1) Lytic bone lesions on xray: Code(s): M89.9 - Disorder of bone, unspecified Status: Chronic Assessment and Plan: Patient presented to the hospital for worsening back pain. Lumbar CT 08/07/23: revealed lytic and sclerotic lesions of the visualized osseous structures with pelvic and retroperitoneal lymphadenopathy, consistent with metastatic disease and moderate to severe lumbar spondylosis. Abdomen/pelvis CT 08/08/23: Extensive lymphadenopathy along the periaortic and external iliac chain regions possibly reflecting lymphoma vs other metastatic disease with mild pathologic compression fracture of T12. Lytic lesions seen on previous imaging on 04/27/23. CT chest- Significant progression of lymphadenopathy in the superior mediastinum, the inferior bilateral jugular chains and left supraclavicular region consistent with progression lymphoma. Progression in multiple lytic lesions throughout numerous bones in the spine and thorax most likely related to progression lymphoma. Bone scan - There are numerous scattered foci of increased bone uptake throughout the axial and appendicular skeleton, those in the chest, abdomen or pelvis corresponding with multiple lytic and/or sclerotic bone lesions suspicious for metastatic disease. Heme/onc: He may need a PET scan as an outpatient. Also ordered flow cytometry, LDH, SPEP, and NM bone scan. left supraclavicular lymph node bx pathology pending Analgesics PT/OT (2) Hyponatremia: Code(s): E87.1 - Hypo-osmolality and hyponatremia Status: Chronic Assessment and Plan: On admission Na 116. Patient received 3% NS IV which increased Na 122. He then received another course of 3% NS which did not impact his current Na level. Patient remains hyponatremic likely due to poor oral intake and known lytic lesions. Placed on fluid restriction and SIADH labs ordered. Na 124 today. Serial sodiums Seizure precautions Salt tab Lasix 10 mg BID Serum osmolality pending Urine osmolality pending Urine sodium 16 (3) Leukocytosis: Code(s): D72.829 - Elevated white blood cell count, unspecified Status: Acute Assessment and Plan: Leukocytosis likely related to ongoing lytic lesions with compression fracture. CT chest shows moderate emphysema with consolidation in the bilateral lower lobes with configuration and associated volume loss favoring atelectasis although there is also some bronchial wall thickening with mucous plugging in the bilateral lower lobes and superimposed bronchitis and/or pneumonia cannot be excluded. WBC trending down without intervention. No signs of active infection. Monitor WBC Mucinex (4) Anemia: Code(s): D64.9 - Anemia, unspecified Status: Acute Assessment and Plan: Chronic anemia. Iron studies showing iron deficiency anemia and low B12. Iron transfusion given. Iron 325 mg BID B12 1000 mg daily (5) COPD (chronic obstructive pulmonary disease): Code(s): J44.9 - Chronic obstructive pulmonary disease, unspecified Status: Acute Assessment and Plan: Not in acute exacerbation. (6) Alcohol abuse: Code(s): F10.10 - Alcohol abuse, uncomplicated Status: Chronic Assessment and Plan: Patient reports drinking two 10 packs of beer and whiskey daily for as long as he can remember. He completely quit drinking on 01/09/23. He endorsed 2-3 days of shakes, but denied all other withdrawal symptoms. (7) Nicotine dependence: Code(s): F17.200 - Nicotine dependence, unspecified, uncomplicated Status: Acute Assessment and Plan: Patient smokes 1.25 pack/day. Strongly encouraged smoking cessation especially with COPD history. Subjective Date/time seen: 08/12/23 08:04 Interval history: This is a 78-year-old male who presented to the hospital on 08/07/2023 for evaluation of back pain that has progressively gotten worse over the pas
[2023-08-12] MEDS: guaiFENesin 12 HR 600 MG TABCR PO ×2 (08:36→20:28)
[2023-08-12] MEDS: CYANOCOBALAMIN 1,000 MCG TABLET 1000 MCG PO (08:36)
[2023-08-12] MEDS: FERROUS SULFATE 325 MG TABLET DR PO ×2 (08:36→17:15)
[2023-08-12] MEDS: SODIUM CHLORIDE 1 GM TABLET PO ×2 (08:36→17:15)
[2023-08-12] MEDS: FUROSEMIDE 10 MG TABLET PO ×2 (08:36→17:15)
[2023-08-12] MEDS: oxyBUTYnin CHLORIDE 5 MG TABLET PO (08:36)
[2023-08-12] MEDS: amLODIPine BESYLATE 5 MG TABLET PO (08:36)
[2023-08-12] MEDS: cilostazoL 100 MG TABLET PO ×2 (08:36→17:15)
[2023-08-12] MEDS: CYCLOBENZAPRINE HCL 5 MG TABLET PO ×2 (08:36→20:28)
[2023-08-12] MEDS: LIDOCAINE 5% PATCH 1 PATCH TRANSDERM (08:36)
[2023-08-12] MEDS: LOSARTAN POTASSIUM 100 MG TABLET PO (08:36)
[2023-08-12] MEDS: PRAVASTATIN SODIUM 20 MG TABLET PO (08:37)
--- NOTE | 2023-08-12 09:35 | P.PNNP_ITS ---
Progress Note: A&P Assessment and Plan (1) Hyponatremia: Code(s): E87.1 - Hypo-osmolality and hyponatremia Status: Chronic Assessment and Plan: * continue to fluctuate * acute on chronic * seems to run ~ 129 - 134 in the last few years * however, he has had low sodiums as far back as 2012.... * multiple risk factors noted * suspected malignancy (lytic lesions on spine) * pulmonary lesion * known history of COPD * acute pain * excess free water intake (?) * previous evaluation reviewed (Apr 2023 admission): * TSH okay * cortisol within normal limits * SPEP/UPEP negative * CT of head negative * CT of chest with emphysema changes and lung nodule * s/p 3% saline x 2 since admission * continue fluid restriction * added salt tabs with low dose lasix (on 08/11/23) * follow trend of repeat sodium levels (2) Back pain: Code(s): M54.9 - Dorsalgia, unspecified Status: Acute Assessment and Plan: * reasonable pain control * continue supportive therap (3) Lytic bone lesions on xray: Code(s): M89.9 - Disorder of bone, unspecified Status: Chronic Assessment and Plan: * noted on previous admission * Hem/Onc recommendations noted Will continue to follow. Subjective Date/time seen: 08/12/23 09:35 Interval history: Follow-up for acute on chronic hyponatremia. No significant change in sodium level in the last 24 hours (but was just started on salt tabs and lasix yesterday); no apparent distress voiced at the time of my visit; pain control seems satisfactory; no issues/events overnight or earlier this morning. Exam Narrative: General: elderly but WD/WN male in NAD Heart: normal S1 and S2; no rub Lungs: clear to auscultation Abdomen: soft, nontender, nondistended, positive bowel sounds Extremities: no cyanosis or clubbing; no edema Skin: no rash Objective Data Vital Signs Vital Signs: Vital Signs Temp Pulse Resp BP Pulse Ox O2 Del Method 08/12/23 04:49 97.6 F 95 16 139/57 L 90 08/11/23 20:00 Room Air 08/11/23 20:41 98.7 F 89 20 117/70 91 08/11/23 14:00 98.5 F 84 22 H 126/53 L 93 Intake/Output Intake/Output: Intake & Output 08/09/23 08/10/23 08/11/23 08/12/23 23:59 23:59 23:59 23:59 Intake Total 1320 710 0 350 Output Total 95 1280 400 Balance 1225 -570 0 -50 Meds/Results Medications: Active Medications Generic Name Dose Route Start Last Admin Trade Name Raúlq PRN Reason Stop Dose Admin Acetaminophen 1,000 mg 08/08/23 02:50 Acetaminophen 500 Mg Tablet PO Q6H PRN Mild Pain (1-3) or Fever Amlodipine Besylate 5 mg 08/08/23 10:30 08/12/23 08:36 Amlodipine Besylate 5 Mg Tablet PO 5 mg DAILY SELWYN Administration Cilostazol 100 mg 08/08/23 17:00 08/12/23 08:36 Cilostazol 100 Mg Tablet PO 100 mg BID SELWYN Administration Cyanocobalamin 1,000 mcg 08/11/23 09:00 08/12/23 08:36 Cyanocobalamin 1,000 Mcg Tablet PO 1,000 mcg QAM SELWYN Administration Cyclobenzaprine HCl 5 mg 08/08/23 10:25 08/12/23 08:36 Cyclobenzaprine Hcl 5 Mg Tablet P
--- NOTE | 2023-08-12 09:35 | PM.PNNEP ---
Progress Note: A&P Assessment and Plan (1) Hyponatremia: Code(s): E87.1 - Hypo-osmolality and hyponatremia Status: Chronic Assessment and Plan: continue to fluctuate acute on chronic seems to run ~ 129 - 134 in the last few years however, he has had low sodiums as far back as 2012.... multiple risk factors noted suspected malignancy (lytic lesions on spine) pulmonary lesion known history of COPD acute pain excess free water intake (?) previous evaluation reviewed (Apr 2023 admission): TSH okay cortisol within normal limits SPEP/UPEP negative CT of head negative CT of chest with emphysema changes and lung nodule s/p 3% saline x 2 since admission continue fluid restriction added salt tabs with low dose lasix (on 08/11/23) follow trend of repeat sodium levels (2) Back pain: Code(s): M54.9 - Dorsalgia, unspecified Status: Acute Assessment and Plan: reasonable pain control continue supportive therap (3) Lytic bone lesions on xray: Code(s): M89.9 - Disorder of bone, unspecified Status: Chronic Assessment and Plan: noted on previous admission Hem/Onc recommendations noted Will continue to follow. Subjective Date/time seen: 08/12/23 09:35 Interval history: Follow-up for acute on chronic hyponatremia. No significant change in sodium level in the last 24 hours (but was just started on salt tabs and lasix yesterday); no apparent distress voiced at the time of my visit; pain control seems satisfactory; no issues/events overnight or earlier this morning. Exam Narrative: General: elderly but WD/WN male in NAD Heart: normal S1 and S2; no rub Lungs: clear to auscultation Abdomen: soft, nontender, nondistended, positive bowel sounds Extremities: no cyanosis or clubbing; no edema Skin: no rash Objective Data Vital Signs Vital Signs: Vital Signs Temp Pulse Resp BP Pulse Ox O2 Del Method 08/12/23 04:49 97.6 F 95 16 139/57 L 90 08/11/23 20:00 Room Air 08/11/23 20:41 98.7 F 89 20 117/70 91 08/11/23 14:00 98.5 F 84 22 H 126/53 L 93 Intake/Output Intake/Output: Intake & Output 08/09/23 08/10/23 08/11/2308/11/24 23:59 23:59 23:59 23:59 Intake Total 1320 710 0 350 Output Total 95 1280 400 Balance 1225 -570 0 -50 Meds/Results Medications: Active Medications Generic Name Dose Route Start Last Admin Trade Name Freq PRN Reason Stop Dose Admin Acetaminophen 1,000 mg 08/08/23 02:50 Acetaminophen 500 Mg Tablet PO Q6H PRN Mild Pain (1-3) or Fever Amlodipine Besylate 5 mg 08/08/23 10:30 08/12/23 08:36 Amlodipine Besylate 5 Mg Tablet PO 5 mg DAILY SELWYN Administration Cilostazol 100 mg 08/08/23 17:00 08/12/23 08:36 Cilostazol 100 Mg Tablet PO 100 mg BID SELWYN Administration Cyanocobalamin 1,000 mcg 08/11/23 09:00 08/12/23 08:36 Cyanocobalamin 1,000 Mcg Tablet PO 1,000 mcg QAM SELWYN Administration Cyclobenzaprine HCl 5 mg 08/08/23 10:25 08/12/23 08:36 Cyclobenzaprine Hcl 5 Mg Tablet PO 5 mg Q12HR SELWYN Administration Ferrous Sulfate 325 mg 08/11/23 09:00 08/12/23 08:36 Ferrous Sulfate [address] PO 325 mg BID SELWYN Administration Furosemide 10 mg 08/11/23 12:00 08/12/23 08:36 Furosemide 10 Mg Tablet PO 10 mg BID SELWYN Administration Guaifenesin 600 mg 08/11/23 14:30 08/12/23 08:36 Guaifenesin 12 Hr 600 Mg Tabcr PO 600 mg Q12HR SELWYN Administration Hydromorphone HCl 1 mg 08/08/23 02:50 08/08/23 20:57 Hydromorphone Hcl Inj (*Crx) 1 Mg/Ml Syr IV PUSH 1 mg Q3H PRN Administration Pain Rated 7-10 Lidocaine 1 patch 08/08/23 10:30 08/12/23 08:36 Lidocaine 5% Patch TRANSDERM 1 patch DAILY SELWYN Administration Losartan Potassium 100 mg 08/08/23 10:30 08/11/23 08:28 Losartan Potassium 100 Mg Tablet PO 100 mg DAILY SELWYN Administration Oxybutynin
[2023-08-12 14:00] VITALS: BP 135/60; PULSE 84; RESP 18; TEMP 36.7; O2SAT 94
[2023-08-12 20:17] VITALS: BP 130/54; PULSE 77; RESP 16; TEMP 36.9; O2SAT 92
[2023-08-13 04:33] VITALS: BP 131/63; PULSE 75; RESP 16; TEMP 36.4; O2SAT 92
[2023-08-13 07:38] LABS: Basophils Percent Auto 0.4 % (0.2-1.2); Eosinophils Absolute Auto 0.1 K/mm3 (0-0.3); Eosinophils Percent Auto 0.6 % (0-4.4); Hematocrit 34.1 % (42.0-52.0); Hemoglobin 11.4 g/dL (14.0-18.0); Immature Granulocyte Absolute 0.11 K/mm3 (0.00-0.031); Lymphocytes Absolute Auto 1.14 K/mm3 (0.9-3.2); Lymphocytes Percent Auto 10.2 % (18.3-44.2); Mean Corpuscular HGB Conc 33.4 g/dl (32-36); Mean Corpuscular Hemoglobin 27.7 pg (26-34); Mean Corpuscular Volume 82.8 fl (80-100); Mean Platelet Volume 8.3 fl (7.4-10.4); Monocytes Absolute Auto 1.2 K/mm3 (0.1-0.6); Monocytes Percent Auto 10.8 % (2.6-8.5); Neutrophils Absolute Auto 8.6 K/mm3 (1.3-6.7); Platelet Count Result 295 k/mm3 (150-375); Red Blood Count 4.12 M/mm3 (4.6-6.20); Red Cell Distribution Width 13.3 % (11.5-14.5); White Blood Count 11.2 K/mm3 (4.5-10.0)
[2023-08-13 07:49] LABS: Alanine Aminotransferase 25 U/L (6-50); Albumin Level 3.3 g/dL (3.5-5.1); Alkaline Phosphatase 184 U/L (38-126); Anion Gap 9 mmol/L (4-12); Aspartate Amino Transferase 44 U/L (17-59); Bilirubin,Total 0.6 mg/dL (0.2-1.3); Blood Urea Nitrogen 11 mg/dL (9-20); Calcium 8.6 mg/dL (8.4-10.2); Carbon Dioxide 20 mmol/L (22-30); Chloride 93 mmol/L (98-107); Estimated CRCL calculation 106 ml/min; Estimated Glomerular Filt Rate > 60; Glucose 94 mg/dL (65-110); Potassium 3.8 mmol/L (3.4-5.0); Sodium 122 mmol/L (137-145)
[2023-08-13] MEDS: oxyBUTYnin CHLORIDE 5 MG TABLET PO (08:21)
[2023-08-13] MEDS: FERROUS SULFATE 325 MG TABLET DR PO ×2 (08:21→17:09)
[2023-08-13] MEDS: PRAVASTATIN SODIUM 20 MG TABLET PO (08:21)
[2023-08-13] MEDS: CYANOCOBALAMIN 1,000 MCG TABLET 1000 MCG PO (08:21)
[2023-08-13] MEDS: CYCLOBENZAPRINE HCL 5 MG TABLET PO (08:21)
[2023-08-13] MEDS: guaiFENesin 12 HR 600 MG TABCR PO (08:21)
[2023-08-13] MEDS: FUROSEMIDE 10 MG TABLET PO (08:21)
[2023-08-13] MEDS: cilostazoL 100 MG TABLET PO ×2 (08:21→17:10)
[2023-08-13] MEDS: SODIUM CHLORIDE 1 GM TABLET PO ×2 (08:22→17:10)
[2023-08-13] MEDS: LIDOCAINE 5% PATCH 1 PATCH TRANSDERM (08:22)
[2023-08-13] MEDS: LOSARTAN POTASSIUM 100 MG TABLET PO (08:22)
[2023-08-13] MEDS: amLODIPine BESYLATE 5 MG TABLET PO (08:22)
--- NOTE | 2023-08-13 13:51 | P.PNNP_ITS ---
Progress Note: A&P Assessment and Plan (1) Hyponatremia: Code(s): E87.1 - Hypo-osmolality and hyponatremia Status: Chronic Assessment and Plan: * continue to fluctuate * acute on chronic * seems to run ~ 129 - 134 in the last few years * however, he has had low sodiums as far back as 2012.... * multiple risk factors noted * suspected malignancy (lytic lesions on spine) * pulmonary lesion * known history of COPD * acute pain * excess free water intake (?) * previous evaluation reviewed (Apr 2023 admission): * TSH okay * cortisol within normal limits * SPEP/UPEP negative * CT of head negative * CT of chest with emphysema changes and lung nodule * s/p 3% saline x 2 since admission * continue fluid restriction * added salt tabs with low dose lasix (on 08/11/23) * increase lasix dosage today * follow trend of repeat sodium levels (2) Back pain: Code(s): M54.9 - Dorsalgia, unspecified Status: Acute Assessment and Plan: * reasonable pain control * continue supportive therap (3) Lytic bone lesions on xray: Code(s): M89.9 - Disorder of bone, unspecified Status: Chronic Assessment and Plan: * noted on previous admission * Hem/Onc recommendations noted * s/p lymph node biopsy (for a definitive diagnosis) Will continue to follow. Subjective Date/time seen: 08/13/23 13:51 Interval history: Follow-up for acute on chronic hyponatremia. No apparent distress noted at this; pain control seem satisfactory; s/p lymph node biopsy yesterday and tolerated this procedure reasonably well; sodium still fluctuating so medication adjustments made with salt tabs and lasix. Exam Narrative: General: elderly but WD/WN male in NAD Heart: normal S1 and S2; no rub Lungs: clear to auscultation Abdomen: soft, nontender, nondistended, positive bowel sounds Extremities: no cyanosis or clubbing; no edema Skin: no nodules Objective Data Vital Signs Vital Signs: Vital Signs Temp Pulse Resp BP Pulse Ox O2 Del Method 08/13/23 04:33 97.5 F L 75 16 131/63 92 08/12/23 20:00 Room Air 08/12/23 20:17 98.5 F 77 16 130/54 L 92 08/12/23 14:00 98.0 F 84 18 135/60 94 Intake/Output Intake/Output: Intake & Output 08/10/23 08/11/23 08/12/23 08/13/23 23:59 23:59 23:59 23:59 Intake Total 710 0 1310 952 Output Total 1280 400 Balance -570 0 910 952 Meds/Results Medications: Active Medications Generic Name Dose Route Start Last Admin Trade Name Freq PRN Reason Stop Dose Admin Acetaminophen 1,000 mg 08/08/23 02:50 Acetaminophen 500 Mg Tablet PO Q6H PRN Mild Pain (1-3) or Fever Amlodipine Besylate 5 mg 08/08/23 10:30 08/13/23 08:22 Amlodipine Besylate 5 Mg Tablet PO 5 mg DAILY SELWYN Administration Cilostazol 100 mg 08/08/23 17:00 08/13/23 08:21 Cilostazol 100 Mg Tablet PO 100 mg BID SELWYN Administration Cyanocobalamin 1,000 mcg 08/11/23 09:00 08/13/23 08:21 Cyanocobalamin 1,000 Mcg Tablet PO 1,000 mcg QAM SELWYN Administration Cyclobenzaprine HCl 5 mg 08/08/23 10:2
--- NOTE | 2023-08-13 13:51 | PM.PNNEP ---
Progress Note: A&P Assessment and Plan (1) Hyponatremia: Code(s): E87.1 - Hypo-osmolality and hyponatremia Status: Chronic Assessment and Plan: continue to fluctuate acute on chronic seems to run ~ 129 - 134 in the last few years however, he has had low sodiums as far back as 2012.... multiple risk factors noted suspected malignancy (lytic lesions on spine) pulmonary lesion known history of COPD acute pain excess free water intake (?) previous evaluation reviewed (Apr 2023 admission): TSH okay cortisol within normal limits SPEP/UPEP negative CT of head negative CT of chest with emphysema changes and lung nodule s/p 3% saline x 2 since admission continue fluid restriction added salt tabs with low dose lasix (on 08/11/23) increase lasix dosage today follow trend of repeat sodium levels (2) Back pain: Code(s): M54.9 - Dorsalgia, unspecified Status: Acute Assessment and Plan: reasonable pain control continue supportive therap (3) Lytic bone lesions on xray: Code(s): M89.9 - Disorder of bone, unspecified Status: Chronic Assessment and Plan: noted on previous admission Hem/Onc recommendations noted s/p lymph node biopsy (for a definitive diagnosis) Will continue to follow. Subjective Date/time seen: 08/13/23 13:51 Interval history: Follow-up for acute on chronic hyponatremia. No apparent distress noted at this; pain control seem satisfactory; s/p lymph node biopsy yesterday and tolerated this procedure reasonably well; sodium still fluctuating so medication adjustments made with salt tabs and lasix. Exam Narrative: General: elderly but WD/WN male in NAD Heart: normal S1 and S2; no rub Lungs: clear to auscultation Abdomen: soft, nontender, nondistended, positive bowel sounds Extremities: no cyanosis or clubbing; no edema Skin: no nodules Objective Data Vital Signs Vital Signs: Vital Signs Temp Pulse Resp BP Pulse Ox O2 Del Method 08/13/23 04:33 97.5 F L 75 16 131/63 92 08/12/23 20:00 Room Air 08/12/23 20:17 98.5 F 77 16 130/54 L 92 08/12/23 14:00 98.0 F 84 18 135/60 94 Intake/Output Intake/Output: Intake & Output 03/24/24 08/11/23 08/12/23 08/13/23 23:59 23:59 23:59 23:59 Intake Total 710 0 1310 952 Output Total 1280 400 Balance -570 0 910 952 Meds/Results Medications: Active Medications Generic Name Dose Route Start Last Admin Trade Name Freq PRN Reason Stop Dose Admin Acetaminophen 1,000 mg 08/08/23 02:50 Acetaminophen 500 Mg Tablet PO Q6H PRN Mild Pain (1-3) or Fever Amlodipine Besylate 5 mg 08/08/23 10:30 08/13/23 08:22 Amlodipine Besylate 5 Mg Tablet PO 5 mg DAILY SELWYN Administration Cilostazol 100 mg 08/08/23 17:00 08/13/23 08:21 Cilostazol 100 Mg Tablet PO 100 mg BID SELWYN Administration Cyanocobalamin 1,000 mcg 08/11/23 09:00 08/13/23 08:21 Cyanocobalamin 1,000 Mcg Tablet PO 1,000 mcg QAM SELWYN Administration Cyclobenzaprine HCl 5 mg 08/08/23 10:25 08/13/23 08:21 Cyclobenzaprine Hcl 5 Mg Tablet PO 5 mg Q12HR SELWYN Administration Ferrous Sulfate 325 mg 08/11/23 09:00 08/13/23 08:21 Ferrous Sulfate [address] PO 325 mg BID SELWYN Administration Furosemide 20 mg 08/13/23 17:00 Furosemide 20 Mg Tablet PO BID SELWYN Guaifenesin 600 mg 08/11/23 14:30 08/13/23 08:21 Guaifenesin 12 Hr 600 Mg Tabcr PO 600 mg Q12HR SELWYN Administration Hydromorphone HCl 1 mg 08/08/23 02:50 08/08/23 20:57 Hydromorphone Hcl Inj (*Crx) 1 Mg/Ml Syr IV PUSH 1 mg Q3H PRN Administration Pain Rated 7-10 Lidocaine 1 patch 08/08/23 10:30 08/13/23 08:22 Lidocaine 5% Patch TRANSDERM 1 patch DAILY SELWYN Administration Losartan Potassium 100 mg 08/08/23 10:30 08/13/23 08:22 Losartan Potassium 100 Mg Tablet PO 100 mg DAILY SELWYN Administr
[2023-08-13 14:00] VITALS: BP 111/58; PULSE 82; RESP 20; TEMP 36.5; O2SAT 94
[2023-08-13] MEDS: SODIUM CHLORIDE 500 MG TABLET 1000 MG PO (14:39)
[2023-08-13] MEDS: FUROSEMIDE 20 MG TABLET PO ×2 (14:40→17:10)
--- NOTE | 2023-08-13 14:42 | PM.IMPN ---
Progress Note: A&P Assessment and Plan (1) Lytic bone lesions on xray: Code(s): M89.9 - Disorder of bone, unspecified Status: Chronic Assessment and Plan: Patient presented to the hospital for worsening back pain. Lumbar CT 08/07/23: revealed lytic and sclerotic lesions of the visualized osseous structures with pelvic and retroperitoneal lymphadenopathy, consistent with metastatic disease and moderate to severe lumbar spondylosis. Abdomen/pelvis CT 08/08/23: Extensive lymphadenopathy along the periaortic and external iliac chain regions possibly reflecting lymphoma vs other metastatic disease with mild pathologic compression fracture of T12. Lytic lesions seen on previous imaging on 04/27/23. CT chest- Significant progression of lymphadenopathy in the superior mediastinum, the inferior bilateral jugular chains and left supraclavicular region consistent with progression lymphoma. Progression in multiple lytic lesions throughout numerous bones in the spine and thorax most likely related to progression lymphoma. Bone scan - There are numerous scattered foci of increased bone uptake throughout the axial and appendicular skeleton, those in the chest, abdomen or pelvis corresponding with multiple lytic and/or sclerotic bone lesions suspicious for metastatic disease. Heme/onc: He may need a PET scan as an outpatient. Also ordered flow cytometry, LDH, SPEP, and NM bone scan. left supraclavicular lymph node bx pathology pending Analgesics PT/OT 08/13/23: Patient will follow up outpatient with Hematology/Oncology for follow up on lymph node biopsy and further work up. Awaiting transfer to [facility]. PCP to sign the certification paperwork. Case management following Continue pain control continue PT and OT (2) Hyponatremia: Code(s): E87.1 - Hypo-osmolality and hyponatremia Status: Chronic Assessment and Plan: On admission Na 116. Patient received 3% NS IV which increased Na 122. He then received another course of 3% NS which did not impact his current Na level. Patient remains hyponatremic likely due to poor oral intake and known lytic lesions. Placed on fluid restriction and SIADH labs ordered. Na 124 today. Serial sodiums Seizure precautions Salt tab Lasix 10 mg BID Serum osmolality pending Urine osmolality pending Urine sodium 16 08/13/23: Sodium level 122 today Continue seizure precautions Continue salt tab Serum osmolarity 260, urine osmolarity is still pending (3) Leukocytosis: Code(s): D72.829 - Elevated white blood cell count, unspecified Status: Acute Assessment and Plan: Leukocytosis likely related to ongoing lytic lesions with compression fracture. CT chest shows moderate emphysema with consolidation in the bilateral lower lobes with configuration and associated volume loss favoring atelectasis although there is also some bronchial wall thickening with mucous plugging in the bilateral lower lobes and superimposed bronchitis and/or pneumonia cannot be excluded. WBC trending down without intervention. No signs of active infection. Monitor WBC Mucinex 08/13/2023 White blood cell count 11.2 Continue to monitor (4) Anemia: Code(s): D64.9 - Anemia, unspecified Status: Acute Assessment and Plan: Chronic anemia. Iron studies showing iron deficiency anemia and low B12. Iron transfusion given. Iron 325 mg BID B12 1000 mg daily 08/13/2023: Hemoglobin 11.4 No change to current treatment plan (5) COPD (chronic obstructive pulmonary disease): Code(s): J44.9 - Chronic obstructive pulmonary disease, unspecified Status: Acute Assessment and Plan: Not in acute exacerbation. (6) Alcohol abuse: Code(s): F10.10 - Alcohol abuse, uncomplicated Status: Chronic Assessment and Plan: Patient reports drinking two 10 packs of beer and whiskey daily for as long as he can remember.
[2023-08-13 15:38] LABS: Osmolality, Urine 381 mOsm/kg (50-1200)
--- NOTE | 2023-08-13 16:57 | PM.DS ---
DS: Admitting Diagnosis Discharge Date 08/13/23 Admitting Diagnosis back pain lytic bone lesions on x-ray peripheral vascular disease COPD alcohol abuse adult failure to thrive hyponatremia DS: Discharge Diagnosis Discharge Diagnosis (1) Lytic bone lesions on xray: Code(s): M89.9 - Disorder of bone, unspecified Status: Chronic (2) Hyponatremia: Code(s): E87.1 - Hypo-osmolality and hyponatremia Status: Chronic (3) Leukocytosis: Code(s): D72.829 - Elevated white blood cell count, unspecified Status: Acute (4) Anemia: Code(s): D64.9 - Anemia, unspecified Status: Acute (5) COPD (chronic obstructive pulmonary disease): Code(s): J44.9 - Chronic obstructive pulmonary disease, unspecified Status: Acute (6) Alcohol abuse: Code(s): F10.10 - Alcohol abuse, uncomplicated Status: Chronic (7) Nicotine dependence: Code(s): F17.200 - Nicotine dependence, unspecified, uncomplicated Status: Acute DS: Summary Hospital Course Reason for hospitalization: back pain lytic bone lesions on x-ray peripheral vascular disease COPD alcohol abuse adult failure to thrive hyponatremia Hospital Course: Interval history: 08/08/23: This is a 78-year-old male who presented to the hospital on 08/07/2023 for evaluation of back pain that has progressively gotten worse over the past 24 hours.? Workup in the hospital included a lumbar spine CT which shows moderate to severe lumbar spondylosis, lytic and sclerotic lesions of the visualized osseous structure with pelvic and retroperitoneal lymphadenopathy consistent with metastatic disease also seen.? CT of the abdomen and pelvis show extensive lymphadenopathy along the shannon aortic and external iliac chain region, which could reflect lymphoma versus other metastatic disease, extensive sclerotic osseous metastatic disease, probable mild pathological compression fracture of T12, constipation, enlarged prostate gland.? Initial labs show a white blood cell count of 12.7, RBC 4.36, hemoglobin 12.2, hematocrit 35.7, platelet count 237, sodium level is 116, chloride 87 calcium 9.6, AST 86, ALT 16, alk-phos 268.? Patient was given [place], Flexeril, Toradol, Dilaudid, Decadron 10 mg, 1 L normal saline bolus, and started on 3% sodium chloride at 100 ml per hour. On examination today patient is alert oriented x3, sitting in the chair.? He denies any fever, chills, nausea, vomiting, diarrhea, abdominal pain, chest pain, shortness a breath.? He endorses mid to lower back pain which is now relieved with pain medication.? Currently reporting his pain level is 2/10.? Labs today reveal sodium of 122, chloride 92, AST 91, alk-phos 280.? Will consult Hematology/Oncology for evaluation of the lytic lesions that were found on CT scan. 08/09/23:(forward from chart) This is a 78-year-old male who presented to the hospital on 08/07/2023 for evaluation of back pain that has progressively gotten worse over the past 24 hours.? Patient is pleasant sitting up in bed eating lunch. He continues to endorse mid back pain that he describes as an aching sensation. He notes that the pain is well controlled on the current pain regimen. Discussed with him that Heme/Onc was consulted for the lytic lesions on imaging due to concern for metastatic disease. He states understanding at this time. He denies chest pain, shortness of breath, nausea/ vomiting and changes in urination. 08/10/23:(forwared from chart) This is a 78-year-old male who presented to the hospital on 08/07/2023 for evaluation of back pain that has progressively gotten worse over the past 24 hours.? Patient is pleasant sitting up in bed eating breakfast. He endorses mild mid back pain, but notes that the pain medication is keeping it well controlled. He reports the pain a 2-3/10. Continued to discuss with the patient that Heme/Onc has been consulted for concern for metastatic disease. Patient asked what the
[2023-08-15 14:45] LABS: Methylmalonic Acid 457 nmol/L (87-318)
[2023-08-18 12:32] LABS: Soluble Transferrin Receptor 1.34 mg/L (0.76-1.76)
== END 2023-08-13 18:30 | DRG 516 ==
LOC: ANHED 21:44 → ANH3MEDSUR 23:33
PROVIDERS: Nurse Practitioner Family; Student in an Organized Health Care Education/Training Program; Admitting Provider Internal Medicine; Emergency Provider Emergency Medicine; PCP Nurse Practitioner; Visit Provider Nurse Practitioner Acute Care
DX: C79.51 Secondary malignant neoplasm of bone (principal); C77.0 Secondary and unspecified malignant neoplasm of lymph nodes of head, face and neck; E87.1 Hypo-osmolality and hyponatremia; M54.9 Dorsalgia, unspecified; I73.9 Peripheral vascular disease, unspecified; J44.9 Chronic obstructive pulmonary disease, unspecified; F10.10 Alcohol abuse, uncomplicated; R62.7 Adult failure to thrive; F17.210 Nicotine dependence, cigarettes, uncomplicated; D50.0 Iron deficiency anemia secondary to blood loss (chronic); I10 Essential (primary) hypertension; E78.5 Hyperlipidemia, unspecified
CPT/HCPCS: 36415; 38505; 71260; 72131; 74177; 76942; 78306; 80048; 80053; 81003; 82607; 82728; 82746; 83540; 83550; 83615; 83735; 83921; 83930; 83935; 84238; 84295; 84300; 85025; 85055; 85384; 85610; 85730; 86334; 88184; 88305; 88342; 96372; 96374; 96375; 97110; 97116; 97161; 97165; 97530; 97535; 99285; A9270; A9503; G0378; J1100; J1170; J1756; J1885; J2270; J7030; J7050; J7131; Q9967

== ENCOUNTER 2023-08-15 18:25 | Observation (INO) | payer MEDICARE, SELFPAY ==
[2023-08-15] VITALS (45 sets, daily range): BP systolic 85–106; BP diastolic 44–62; PULSE 74–100; RESP 12–28; TEMP 36.2; O2SAT 89–97
--- NOTE | ~2023-08-15 | XR_ITS ---
EXAMINATION: XR chest 2V Exam Date/Time: 08/15/2023 21:15 CDT HISTORY: hypoxic and WBC 30; c/f pna Comparison: 04/26/2023. RESULT: Lines, tubes, and devices: None. Lungs and pleura: Segmental right lower lobe consolidation. Emphysematous and senescent changes. Cardiomediastinal silhouette: Stable. Unchanged calcified anterior mediastinal mass. Other: No acute osseous or upper abdominal finding. IMPRESSION: Right lower lobe pneumonia. Reviewed, dictated and finalized at location [facility]. IMPRESSION: Right lower lobe pneumonia.
--- NOTE | 2023-08-15 19:05 | ED.BACK ---
HPI - Back Pain/Injury General Chief Complaint: Back Pain/Injury Stated Complaint: back pain, low o2 Time Seen by Provider: 08/15/23 19:04 Source: patient and family (Daughter and granddaughter) Mode of arrival: EMS Limitations: altered mental status and clinical condition History of Present Illness HPI Narrative: Patient presents complaint pain several days duration. Of note he was recently seen for the same and found to lytic lesions concerning for metastatic process but did not identifying etiology. Patient discharged back to his facility and in the interim had undergone lymph node biopsy but has not received the results yet. He had been admitted for hyponatremia which does appear to undergone workup in the multifactorial attributed to SIADH and intake. Patient lives in an assisted living facility and is responsible for his own medications. He has been more sleepy than usual there has been some day night reversal causes some confusion missing medications. They believe he was discharged with a prescription for tramadol 50 and possibly other pain medications. Family states he is requiring a walker to ambulate which is new. Two weeks prior he had been ambulating on his own and was going to the grocery store. Patient states he had had black bowel movements in April and his sister told him these might be due to a GI bleed. He states he believes he is having the same recently as well. Related Data Home Medications Medication Instructions Recorded Confirmed amlodipine 5 mg tablet 5 mg PO DAILY 08/08/23 08/16/23 losartan 100 mg tablet 100 mg PO DAILY 08/08/23 08/16/23 oxybutynin chloride 5 mg tablet 5 mg PO DAILY 08/08/23 08/16/23 Allergies Allergy/AdvReac Type Severity Reaction Status Date / Time Penicillins Allergy Unknown hives Verified 08/07/23 20:11 [facility] Past Medical History Medical History Adult failure to thrive Alcohol abuse, uncomplicated Chronic hyponatremia SIADH multifactorial COPD (chronic obstructive pulmonary disease) Depression with anxiety Dorsalgia Essential hypertension Hemorrhoids Hyperlipidemia Hypo-osmolality and hyponatremia Metastatic malignant neoplasm to prostate Peripheral arterial disease PTSD (post-traumatic stress disorder) Surgical History Surgical History History of appendectomy History of tonsillectomy and adenoidectomy Family History Family History Sibling Hypertension Mother Family history of chronic obstructive pulmonary disease Father Family history of lung cancer Social History Social History Smoking packs per day: 1.5 Smoking cigarettes per day: 30.0 Years smoked: 60 Smoking pack-years: 90.00 Smoking status: Former smoker Tobacco type: cigarettes Second hand tobacco smoke exposure: Yes Alcohol intake: never Drinks per week: 70 Alcohol use details: beer Substance use: never Substance use type: does not use Do You Feel Safe in your Home?: Yes Lack of Transportation: No Lack of Food: Never True Current Housing: I Have Housing Concerned About Future Housing: No Difficulty Paying Gas/Electric Bills: No Difficulty Paying for Meds: No Currently Unemployed: No Education: Grade School Difficulty w/ Childcare or Family Care: No Living arrangements: assisted living Additional living arrangements comments: Resides at [facility] Additional gender identity comments: Spiritual care concerns: No Exam Narrative: GENERAL: in no acute distress but appears thin. HEAD: Normocephalic, atraumatic. EYES: Non injected, non icteric ENT: Nares clear, no rhinorrhea or epistaxis. Tacky mucous membranes NECK: Supple. CHEST: Clear to auscultation bilaterally without wheezes or crackles. No respiratory distress. HEART: Regul
[2023-08-15] MEDS: HYDROcodone/acetaminophen (*CRX) 5-325 MG TABLET 1 TAB PO (19:41)
[2023-08-15 19:43] LABS: Alveolar/Arterial O2 Gradient 98.8 mmHg; Base Excess ABG -0.1 mEq/l (+/-2.0); Fractional Inspired Oxygen 28 %; HCO3 ABG 22.6 mEq/l (22.0-26.0); Oxygen Content ABG 15.3 %vol (16.0-22.0); Oxygen Saturation ABG 94.3 % (95.0-100.0); Oxyhemoglobin 91.1 % THb (90.0-100.0); PCO2 ABG 30.7 mmHg (35.0-45.0); PO2 ABG 64.6 mmHg (80.0-100.0); PO2 FiO2 Ratio Arterial Blood 2.31 %; Total Hemoglobin 11.9 g/dL (12.0-18.0); pH ABG 7.484 (7.350-7.450)
[2023-08-15 19:44] LABS: Device NASAL CANNULA; Modified Allen's Test Pass; Site Drawn LEFT RADIAL
[2023-08-15 19:45] LABS: Hematocrit 31.1 % (42.0-52.0); Hemoglobin 10.7 g/dL (14.0-18.0); Mean Corpuscular HGB Conc 34.4 g/dl (32-36); Mean Corpuscular Hemoglobin 27.9 pg (26-34); Mean Corpuscular Volume 81.2 fl (80-100); Mean Platelet Volume 7.9 fl (7.4-10.4); Platelet Count Result 321 k/mm3 (150-375); Red Blood Count 3.83 M/mm3 (4.6-6.20); Red Cell Distribution Width 13.7 % (11.5-14.5); White Blood Count 30.2 K/mm3 (4.5-10.0)
[2023-08-15 19:55] LABS: Alanine Aminotransferase 23 U/L (6-50); Albumin Level 2.9 g/dL (3.5-5.1); Alkaline Phosphatase 139 U/L (38-126); Anion Gap 10 mmol/L (4-12); Aspartate Amino Transferase 39 U/L (17-59); Bilirubin,Total 0.7 mg/dL (0.2-1.3); Blood Urea Nitrogen 21 mg/dL (9-20); Calcium 8.3 mg/dL (8.4-10.2); Carbon Dioxide 20 mmol/L (22-30); Chloride 92 mmol/L (98-107); Creatine Kinase 34 U/L (55-170); Estimated CRCL calculation 72 ml/min; Estimated Glomerular Filt Rate > 60; Glucose 97 mg/dL (65-110); Magnesium 2.2 mg/dL (1.6-2.3); Potassium 3.2 mmol/L (3.4-5.0); Sodium 122 mmol/L (137-145)
[2023-08-15 20:02] LABS: Band Neutrophils Percent 3 % (0-6); Monocytes Percent Manual 2 % (3-9); Neutrophils Absolute Manual 29.29 K/mm3 (1.3-6.7); Neutrophils Percent Manual 94 % (46-73); Platelet Estimate Adequate (Adequate); Schistocytes None Seen; Total Cells Counted 100
[2023-08-15 20:10] LABS: Ethanol < 10 mg/dL (<10)
[2023-08-15] MEDS: ACETAMINOPHEN 325 MG TABLET 650 MG PO (20:43)
[2023-08-15] MEDS: POTASSIUM PHOS/SODIUM PHOS 250 MG TABLET PO (20:43)
[2023-08-15 22:18] LABS: Add Urine Microscopic? NO; Appearance Urine Clear (Clear); Bilirubin Urine Negative (Negative); Blood Urine Negative (Negative); Color Urine Yellow (Yellow); Glucose Urine UA Negative (Negative); Ketones Urine Negative (Negative); Leukocyte Esterase Ur Negative LEU/UL (Negative); Nitrate Urine Negative (Negative); Protein Urine Negative (Negative); Specific Grav Ur 1.016 (1.001-1.035); Urobilinogen Urine 0.2 mg/dL (<2.0)
[2023-08-15] MEDS: AZITHROMYCIN 250 MG TABLET 500 MG PO (22:24)
[2023-08-15 22:41] LABS: Influenza A QL RT-PCR Negative (Negative); Influenza B QL RT-PCR Negative (Negative); RSV RNA, RT-PCR Negative (Negative); SARS-CoV-2 RNA PCR Negative (Negative)
[2023-08-15] MEDS: LACTATED RINGERS 1,000 ML 999 ML IV CONT (22:45)
--- NOTE | 2023-08-15 22:46 | PC.NURSE ---
erp dr soliz and dr ackerman notified of lower bp's. LR bolus ordered at this time.
[2023-08-16] VITALS (17 sets, daily range): BP systolic 88–117; BP diastolic 34–67; PULSE 68–79; RESP 14–20; TEMP 36.2–36.6; O2SAT 92–97
--- NOTE | 2023-08-16 00:10 | ADMGEN ---
This patient, Darryl Murphy, was admitted to 2 Medical Room 259-01. Patient/family oriented to hospital policies and general routines including ID bracelet, bed and alarms, visiting hours, pain management, procedures, bathroom and other care routines, personal items, smoking policy, room service/diet, and visiting hours. Information on how to activate the Rapid Response Team has been discussed. Patient/Family are encouraged to report perceived risks to care and to ask questions if they do not understand what they are told or what they should do.
[2023-08-16] MEDS: HYDROcodone/acetaminophen (*CRX) 5-325 MG TABLET 1 TAB PO ×2 (01:52→21:01)
[2023-08-16] MEDS: SODIUM CHLORIDE 0.9% IV 500 ML 250 ML IV CONT (04:18)
--- NOTE | 2023-08-16 04:50 | PM.IMHP ---
H&P: HPI History of Present Illness Date/Time: 08/16/23 04:50 Chief Complaint: Back pain worse since last hospital stay Narrative: 78-year-old male with past medical history of essential hypertension, hyperlipidemia, CHF, COPD, and recent diagnosis of metastatic lytic bone lesions who presented to the ER via EMS from [facility] with intractable back pain for 3 days. The patient had recently been hospitalized and found to have metastatic disease of uncertain origin initially. He underwent a lymph node biopsy with pathology that returned in the in term consistent with poorly differentiated prostate cancer. The patient has not yet had the opportunity follow-up as outpatient as he was only discharged from the hospital 3 days ago. He reports that since he was discharged from hospital pain has been intractable expressive he tries to stand up and ambulate. He reports it takes maximal effort to get to the bathroom at his new [facility]. He denies any loss of bowel or bladder control. He denies any numbness or tingling in his extremities. He reports that the majority of his pain is in his low back and radiates down the back of both legs. He denies any significant pain anywhere else. He states that he has been taking his p.r.n. pain medications (tramadol). Although he has not been using lidocaine patches made available. He does report decreased oral intake. He reports that food has not tasted good for months and is just getting worse. He has not had any significant nausea or vomiting. He quit drinking alcohol in December because he just decided it was not worth going out to buy another case of beer. He reports that since he has quit drinking he has had less than last desire to smoke. He thinks that he has officially smoked his last cigarette as of 3 or 4 days ago. He denies any significant increase in shortness of breath. He denies any significant cough. But the time my evaluation the patient did have a vigorous cough. He reports that he is chronically chilled in this is unchanged from baseline. He does have a weak urine stream chronically and has to be urinate frequently. He feels as if he empties his bladder completely. The patient does have a history of a duodenal ulcer that bled in April of 2023. He reports he was told within the last month or so to discontinue PPI therapy. He has not been having any heartburn symptoms. He has not been taking ibuprofen or relieved. He stated he had 1 loose watery stool that appeared black in color on the . A digital rectal exam was performed in the ER and was negative for occult blood. Review of Systems Review of Systems: 12 systems were reviewed with pertinent positives and negatives per HPI. Except as documented in the HPI, all other systems were reviewed and are negative. [facility] Past Medical History Medical History Adult failure to thrive Alcohol abuse, uncomplicated Chronic hyponatremia SIADH multifactorial COPD (chronic obstructive pulmonary disease) Depression with anxiety Dorsalgia Essential hypertension Hemorrhoids Hyperlipidemia Hypo-osmolality and hyponatremia Metastatic malignant neoplasm to prostate Peripheral arterial disease PTSD (post-traumatic stress disorder) Surgical History Surgical History History of appendectomy History of tonsillectomy and adenoidectomy Family History Family History Sibling Hypertension Mother Family history of chronic obstructive pulmonary disease Father Family history of lung cancer Social History Social History (Updated 08/17/23 @ 01:46 by Bhakti Armstrong DO) Social History: The patient just moved into assisted living middle July 2023. He quit drinking in December 2022. He stated he just decided he did not want to go by [facility]
[2023-08-16 05:57] LABS: Basophils Absolute Auto 0.1 K/mm3 (0.0-0.1); Basophils Percent Auto 0.2 % (0.2-1.2); Eosinophils Percent Auto 0.1 % (0-4.4); Hematocrit 30.3 % (42.0-52.0); Hemoglobin 10.1 g/dL (14.0-18.0); Immature Granulocyte Absolute 0.49 K/mm3 (0.00-0.031); Immature Granulocyte Percent A 1.8 % (0-0.5); Lymphocytes Absolute Auto 1.17 K/mm3 (0.9-3.2); Lymphocytes Percent Auto 4.4 % (18.3-44.2); Mean Corpuscular HGB Conc 33.3 g/dl (32-36); Mean Corpuscular Hemoglobin 27.8 pg (26-34); Mean Corpuscular Volume 83.5 fl (80-100); Mean Platelet Volume 8.2 fl (7.4-10.4); Monocytes Absolute Auto 0.9 K/mm3 (0.1-0.6); Monocytes Percent Auto 3.3 % (2.6-8.5); Neutrophils Absolute Auto 23.9 K/mm3 (1.3-6.7); Neutrophils Percent Auto 90.2 % (45.5-73.1); Platelet Count Result 375 k/mm3 (150-375); Red Blood Count 3.63 M/mm3 (4.6-6.20); Red Cell Distribution Width 13.8 % (11.5-14.5); White Blood Count 26.6 K/mm3 (4.5-10.0)
[2023-08-16 06:15] LABS: Anion Gap 8 mmol/L (4-12); Blood Urea Nitrogen 25 mg/dL (9-20); Calcium 8.1 mg/dL (8.4-10.2); Carbon Dioxide 22 mmol/L (22-30); Chloride 93 mmol/L (98-107); Estimated CRCL calculation 57 ml/min; Estimated Glomerular Filt Rate > 60; Glucose 83 mg/dL (65-110); Sodium 123 mmol/L (137-145)
[2023-08-16] MEDS: SODIUM CHLORIDE 0.9% IV 1,000 ML 100 ML IV CONT (06:46)
[2023-08-16 06:50] LABS: Platelet Estimate Adequate (Adequate)
[2023-08-16 06:51] LABS: Crenated RBC 1+; Schistocytes Rare
[2023-08-16] MEDS: POTASSIUM CHLORIDE 20 MEQ PACKET (FOR LIQUID) 40 MEQ PO (10:03)
[2023-08-16] MEDS: SODIUM CHLORIDE 1 GM TABLET PO ×2 (10:04→18:04)
[2023-08-16] MEDS: oxyBUTYnin CHLORIDE 5 MG TABLET PO (10:04)
[2023-08-16] MEDS: FERROUS SULFATE 325 MG TABLET DR PO ×2 (10:04→18:04)
[2023-08-16] MEDS: PANTOPRAZOLE 40 MG TABLET PO (10:04)
[2023-08-16] MEDS: LIDOCAINE 5% PATCH 1 PATCH TRANSDERM (10:07)
[2023-08-16 12:52] LABS: MRSA (PCR) NOT DETECTED (NOT DETECTE)
[2023-08-16 13:19] LABS: Sodium 124 mmol/L (137-145)
--- NOTE | 2023-08-16 16:19 | WPDURCON ---
Assessment and Plan Assessment and plan (1) Metastatic malignant neoplasm to prostate: Code(s): C79.82 - Secondary malignant neoplasm of genital organs Status: Acute Assessment and Plan: Assessment and Plan: 1. Metastatic Prostate Cancer: - Plan: -Serum PSA and Testosterone next available -Initiate testosterone lowering therapy (Androgen Deprivation Therapy or 'ADT') in the hospital -- Risks discussed, focusing on side effects similar to menopause. IF PATIENT AGREEABLE TO STARTING THERAPY, KETOCONAZOLE 400mg PO TID can be given to accomplish castrate levels of T within a day or two, and can be given with 5mg PO Prednisone BID to counter physiologic losses of corticosteroids from the therapy -- this could be continued until he is discharged, but upon discharge, we would try to expedite him getting a long acting shot of ADT in our outpatient clinic. IF HE IS NOT AGREEABLE TO ADT, then there is not much to offer in terms of prostate cancer management. -If he agrees to therapy, then, upon discharge, continue long-acting injections to maintain low testosterone levels. Consider adding a pills to block testosterone receptors for a longer-lasting effect. Discussed a potential outpatient consultation with a medical oncologist, Dr. Luque, to evaluate the patient for chemotherapy. 2. Chronic Back Pain: - Plan: Manage pain with appropriate analgesics as needed. Consider physical therapy or other non-pharmacological interventions for long-term pain management. 3. Shortness of Breath (CHF, COPD): - Plan: Optimize medical management for CHF and COPD as needed. Monitor respiratory status and oxygen saturation. Encourage pulmonary rehabilitation and smoking cessation. 4. Heavy Alcohol Use and Smoking History: - Plan: Continue monitoring for alcohol withdrawal symptoms. 5. Malnutrition: - Plan: Consult with a dietitian to assess nutritional status and develop a tailored meal plan. Monitor food intake and weight. Consider supplementation if necessary. 6. Palliative Care/Hospice Consultation: - Plan: -Plan for Palliative Care consult to help the patient and family establish 'Goals of Care' as he has a high volume metastatic prostate cancer -- with full therapy (ADT, Androgen Receptor Blockers, and Chemo) he could very reasonably keep the prostate cancer under control for many years -- even with just ADT and Androgen Receptor Blockers we may be able to get another year or two -- but if he doesn't pursue any treatment, then it is possible he would from prostate cancer within 6 months -If the patient decides not to pursue treatment or is not a candidate for therapy, arrange for a hospice consultation. Discuss the benefits of early palliative care and hospice services with the patient and family. Coordinate with a preferred hospice provider (e.g., Chuck) for a smooth transition if needed. I spent over 90 minutes on this encounter including chart review, counseling, and documentation. Urology Consult Note HPI Date Seen: 08/16/23 Requesting Physician: Bhakti Armstrong DO Primary Care Provider: Nik Huff APRN Consult Narrative Narrative: Darryl Murphy is a 78 year old male admitted with COPD/CHF exacerbation and 3 days of acute on chronic back pain that became severely worse. His family is at the bedside, and his daughter provides most of the history. Urology is consulted as the patient appears to have high volume metastatic prostate cancer. Last week he underwent a biopsy of a lymph node believed to be lymphoma, which revealed prostate cancer, despite having no known history of lymphoma, prostate cancer, colon cancer, or any similar conditions. He has no family history of prostate cancer among first-degree relatives. Darryl's primary reason for seeking medical attention was due to back pain, which he describes as an exacerbation of chronic issues dating back to his 20s, rather than his initial concern of shortness of breath relat
--- NOTE | 2023-08-16 17:40 | PM.IMPN ---
Progress Note: A&P Assessment and Plan (1) Sepsis: Code(s): A41.9 - Sepsis, unspecified organism Status: Acute Assessment and Plan: Patient presents with complaints of pain but found to have HoTN, leukocytosis, confusion and hypoxia. CXR showing RLL PNA. Consider hospital acquired since was just discharged. UA clear. BCx not collected before abx. Treated with IV fluids with good BP response. MAP 50-60 --> 70-80 range. Started on Rocephiin and Azithromycin MRSA screen negative. WBC trending down. Continue current abx for now. Follow (2) Acute hypoxic respiratory failure: Code(s): J96.01 - Acute respiratory failure with hypoxia Status: Acute Assessment and Plan: Patien hypoxic on admission requiring 2L ABG 7./ on 2L. Related to RLL PNA. Consider aspiration. Continue current abx for now. Add bronchodilators, ST to evaluate (3) Right lower lobe pneumonia: Qualifiers: Pneumonia type: due to unspecified organism Qualified Code(s): J18.9 - Pneumonia, unspecified organism Code(s): J18.9 - Pneumonia, unspecified organism Status: Acute Assessment and Plan: As above (4) Metastatic malignant neoplasm to prostate: Code(s): C79.82 - Secondary malignant neoplasm of genital organs Status: Acute Assessment and Plan: The patient was here originally on 08/06 for back pain and found to have widespread bony lesions on scans. A LN tissue biopsy performed with results now availae showing poorly differentiated metastatic prostate adenocarcinoma. PSA>100. Urology consulted and appreciate their input. Will discuss with family about options as laid out by urology. Discussed with dtr by phone and patient in the room. Patient does not recall talking with the urologist. Options reviewed with him. He is oriented and decides to talk with hospice at this time. Dtr informed of patient's decision and is in agreement. (5) Hypokalemia: Code(s): E87.6 - Hypokalemia Status: Acute Assessment and Plan: Potassium low on admisison. Replacement ordered Follow and replace as needed (6) Hyponatremia: Code(s): E87.1 - Hypo-osmolality and hyponatremia Status: Chronic Assessment and Plan: Sodium low but appears more of a chronic issue. NaCl tablets resumed Follow Plan Code status - DNR DVT prophylaxis -SCD Subjective Date/time seen: 08/16/23 17:40 Interval history: 78yo male with HTN, CHF, COPD, and recent diagnosis of metastatic lytic bone lesions who presented to the ER via EMS from [facility] assisted living with intractable back pain for 3 days.?? Patient feels achy and tired. Slight cough. Buttucks feels sore. No CP or SOB. Exam Narrative: AF 97.8 111/51 70 20 95% ra Gen - NARD Chest - decreased BS in the RLL with left base crackles. nml RR CV - RRR S1/S2 Abd - Soft, protuberant, +BS - Ricci placed with scant amount of urine in the bag (placed earlier for urine retention) Ext - No pedal edema Psych - AOx4. Skin - Warm and dry. buttock dressing clean and dry Objective Data Vital Signs Vital Signs: Vital Signs - 24 hr 08/15/23 18:25 08/15/23 18:45 08/15/23 18:34 Temperature 97.2 F L Pulse Rate 96 97 Respiratory Rate 19 19 Blood Pressure 100/49 L Pulse Oximetry 92 92 90 Oxygen Delivery Room Air Nasal Cannula Oxygen Flow Rate 2 08/15/23 18:35 08/15/23 18:45 08/15/23 18:46 Temperature Pulse Rate 97 94 100 Respiratory Rate 20 20 28 H Blood Pressure 100/49 L 98/62 L Pulse Oximetry 89 L 92 92 Oxygen Delivery Oxygen Flow Rate 08/15/23 19:00 08/15/23 19:01 08/15/23 19:06 Temperature Pulse Rate 96 97 94 Respiratory Rate 19 19 18 Blood Pressure 87/51 L 95/49 L Pulse Oximetry 93 93 94 Oxygen Delivery Oxygen Flow Rate 08/15/23 19:15 08/15/23 19:16 08/15/23 19:30 Temperature Pulse Rate 98 98 97 Respiratory Rate 20
[2023-08-16 17:51] LABS: Prostate Specific Antigen > 100.0 ng/mL (< OR = 4.0)
[2023-08-16] MEDS: IPRATROPIUM 0.5 MG/ALBUTEROL SULFATE 2.5 MG AMPUL.NEB 3 ML INHALATION (21:00)
[2023-08-16] MEDS: AZITHROMYCIN 500 MG/NS 250 ML 500 MG/250 ML BAG 250 MG IVPB (22:01)
[2023-08-17] VITALS (9 sets, daily range): BP systolic 115–129; BP diastolic 63–72; PULSE 62–77; RESP 14–18; TEMP 36.5; O2SAT 92–96
[2023-08-17] MEDS: HYDROcodone/acetaminophen (*CRX) 5-325 MG TABLET 1 TAB PO (04:07)
--- NOTE | 2023-08-17 04:47 | PCRCNOTE ---
Patient did not want to be awakened for 0200 updraft treatment. Will resume at 0800.
[2023-08-17] MEDS: SODIUM CHLORIDE 0.9% IV 1,000 ML 100 ML IV CONT ×2 (05:26→13:53)
--- NOTE | 2023-08-17 06:04 | WPDUROPN2 ---
Progress Note: A&P Assessment and Plan (1) Metastatic malignant neoplasm to prostate: Code(s): C79.82 - Secondary malignant neoplasm of genital organs Status: Acute Assessment and Plan: Assessment and Plan: 1. High Volume Castratation Sensitive Metastatic Prostate Cancer: - Plan: -At this time, after lots of detailed discussion with patient and his family -- he is leaning towards pursuing no treatment for his high volume mCSPC -- we discussed that he could always try ADT and assess side effects and if not what he wants, move on to Hospice (though a long-acting ADT injection would not be reversible, so would have side effects until the shot wore off). Also discussed that he could proceed with Hospice, and change his mind about getting treatment later. -We discuees that it is possible to start testosterone lowering therapy (Androgen Deprivation Therapy or 'ADT') in the hospital -- Risks discussed, focusing on side effects similar to menopause --and I explained that ADT is the foundation of mCSPC treatment -- without it, there is no role for Chemo, Radiation, or Noval Hormonal agents. IF PATIENT AGREEABLE TO STARTING THERAPY, KETOCONAZOLE 400mg PO TID can be given to accomplish castrate levels of T within a day or two, and can be given with 5mg PO Prednisone BID to counter physiologic losses of corticosteroids from the therapy -- this could be continued until he is discharged, but upon discharge, we would try to expedite him getting a long acting shot of ADT in our outpatient clinic. IF HE IS NOT AGREEABLE TO ADT, then there is not much to offer in terms of prostate cancer management, and I advise he proceed with Hospice. 2. Chronic Back Pain: - Plan: Manage pain with appropriate analgesics as needed. Consider physical therapy or other non-pharmacological interventions for long-term pain management. 3. Shortness of Breath (CHF, COPD): - Plan: Optimize medical management for CHF and COPD as needed. Monitor respiratory status and oxygen saturation. Encourage pulmonary rehabilitation and smoking cessation. 4. Palliative Care/Hospice Consultation: - Plan: -Plan for Palliative Care consult to help the patient and family establish 'Goals of Care' as he has a high volume metastatic prostate cancer -- with full therapy (ADT, Androgen Receptor Blockers, and Chemo) he could very reasonably keep the prostate cancer under control for many years -- even with just ADT and Androgen Receptor Blockers we may be able to get another year or two -- but if he doesn't pursue any treatment, then it is possible he would from prostate cancer within 6 months -If the patient decides not to pursue treatment or is not a candidate for therapy, arrange for a hospice consultation. Discuss the benefits of early palliative care and hospice services with the patient and family. Coordinate with a preferred hospice provider (e.g., Chuck) for a smooth transition if needed. I spent over another 90 minutes on this encounter which was mainly counseling and documentation. Subjective Subjective Date/Time Seen: 08/17/23 06:04 Interval history: MAKSIM o/n, though is feeling better with improved energy and appetite today Family again is at bedside -- lots of counseling/discussion done today with patient and family, really trying to get them to nail down their goals of care. PSA TREND: 07/2023 - >100 09/2022 - 62 08/2021 - 5.7 08/2020 - 2.0 Review of Systems Review of Systems: All systems reviewed & are unremarkable except as noted in HPI and below Exam Narrative: No acute distress, comfortable appearing in bed with nasal cannulae Objective Data Vital Signs Vital Signs: Vital Signs - 24 hr 08/16/23 06:47 08/16/23 08:16 08/16/23 08:00 Temperature Pulse Rate 75 Respiratory Rate Blood Pressure 117/64 Pulse Oximetry 95 Oxygen Delivery Nasal Cannula Oxygen Flow Rate 2 08/16/23 12:00 08/16/23 10:10 08/16/23 14:00 [place]
[2023-08-17] MEDS: IPRATROPIUM 0.5 MG/ALBUTEROL SULFATE 2.5 MG AMPUL.NEB 3 ML INHALATION (07:25)
[2023-08-17] MEDS: PANTOPRAZOLE 40 MG TABLET PO (10:11)
[2023-08-17] MEDS: FERROUS SULFATE 325 MG TABLET DR PO (10:11)
[2023-08-17] MEDS: oxyBUTYnin CHLORIDE 5 MG TABLET PO (10:11)
[2023-08-17] MEDS: LIDOCAINE 5% PATCH 1 PATCH TRANSDERM (10:12)
[2023-08-17] MEDS: TRIAMCINOLONE ACET 0.1% CREAM 15 GM TUBE 1 APPLIC TOPICAL (10:12)
[2023-08-17] MEDS: SODIUM CHLORIDE 1 GM TABLET PO (10:12)
[2023-08-17] MEDS: CLOBETASOL PROPIONATE 0.05% CREAM 15 GM 1 APPLIC TOPICAL (10:12)
[2023-08-17] MEDS: IBUPROFEN 400 MG TABLET PO (10:27)
--- NOTE | 2023-08-17 14:08 | PM.IMPN ---
Progress Note: A&P Assessment and Plan (1) Sepsis: Code(s): A41.9 - Sepsis, unspecified organism Status: Acute Assessment and Plan: Patient presents with complaints of pain but found to have HoTN, leukocytosis, confusion and hypoxia. CXR showing RLL PNA. Consider hospital acquired since was just discharged. UA clear. BCx not collected before abx. Treated with IV fluids with good BP response. MAP 50-60 --> 70-80 range. Started on Rocephiin and Azithromycin MRSA screen negative. WBC trending down. Continue current abx for now. Follow (2) Acute hypoxic respiratory failure: Code(s): J96.01 - Acute respiratory failure with hypoxia Status: Acute Assessment and Plan: Patien hypoxic on admission requiring 2L ABG 7. on 2L. Related to RLL PNA. Continue to follow (3) Right lower lobe pneumonia: Qualifiers: Pneumonia type: due to unspecified organism Qualified Code(s): J18.9 - Pneumonia, unspecified organism Code(s): J18.9 - Pneumonia, unspecified organism Status: Acute Assessment and Plan: As above (4) Metastatic malignant neoplasm to prostate: Code(s): C79.82 - Secondary malignant neoplasm of genital organs Status: Acute Assessment and Plan: The patient was here originally on 08/06 for back pain and found to have widespread bony lesions on scans. A LN tissue biopsy performed with results now available showing poorly differentiated metastatic prostate adenocarcinoma. PSA>100. Urology consulted and appreciate their input. Discussed with dtr and patient. Patient wishes to proceed with hospice care Comfort measures. Hospice consult. (5) Hypokalemia: Code(s): E87.6 - Hypokalemia Status: Acute Assessment and Plan: Potassium low on admisison. Replacement ordered Follow and replace as needed (6) Hyponatremia: Code(s): E87.1 - Hypo-osmolality and hyponatremia Status: Chronic Assessment and Plan: Sodium low but appears more of a chronic issue. Stop NaCl tabs Follow Plan Code status - DNR DVT prophylaxis -SCD Subjective Date/time seen: 08/17/23 14:08 Interval history: 78yo male with HTN, CHF, COPD, and recent diagnosis of metastatic lytic bone lesions who presented to the ER via EMS from [facility] assisted living with intractable back pain for 3 days.?? Up to the chair earlier. Minimal cough productive of clear sputum. Feels well. Has decided to procede with hospice care. He does want to continue abx for now. Family in the room who agreed with patient's decision Exam Narrative: AF 97.8 111/51 70 20 95% ra Gen - NARD Chest - decreased BS in the right base. CV - RRR S1/S2 Abd - Soft, protuberant, +BS - Ricci placed with clear yellow urine in the bag Ext - No pedal edema Psych - normal mood Skin - Warm and dry Objective Data Vital Signs Vital Signs: Vital Signs - 24 hr 08/16/23 16:00 08/16/23 21:00 08/16/23 21:44 Temperature Pulse Rate 70 68 68 Respiratory Rate 18 Blood Pressure Pulse Oximetry 92 Oxygen Delivery Nasal Cannula Oxygen Flow Rate 2 08/16/23 21:10 08/16/23 21:51 08/16/23 20:00 Temperature 97.9 F Pulse Rate 69 74 Respiratory Rate 18 14 Blood Pressure 108/67 Pulse Oximetry 94 94 Oxygen Delivery Nasal Cannula Oxygen Flow Rate 1 08/16/23 20:00 08/17/23 00:00 08/17/23 04:00 Temperature Pulse Rate 79 75 73 Respiratory Rate Blood Pressure Pulse Oximetry Oxygen Delivery Oxygen Flow Rate 08/17/23 05:48 08/17/23 07:25 08/17/23 07:25 Temperature 97.7 F Pulse Rate 70 71 Respiratory Rate 14 18 Blood Pressure 115/63 Pulse Oximetry 96 93 Oxygen Delivery Nasal Cannula Oxygen Flow Rate 2 08/17/23 07:33 08/17/23 09:02 08/17/23 08:47 Temperature Pulse Rate 64 Respiratory Rate 18 Blood Pressure Pulse Oximetry Oxygen Delivery Room Air Ro
[2023-08-17] MEDS: AZITHROMYCIN 500 MG/NS 250 ML 500 MG/250 ML BAG 250 MG IVPB (22:31)
[2023-08-18 07:08] VITALS: BP 139/70; PULSE 70; RESP 16; TEMP 36.6; O2SAT 93
[2023-08-18 08:49] LABS: Hemoglobin 10.7 g/dL (14.0-18.0); Mean Corpuscular HGB Conc 33.4 g/dl (32-36); Mean Corpuscular Hemoglobin 27.8 pg (26-34); Mean Corpuscular Volume 83.1 fl (80-100); Mean Platelet Volume 8.3 fl (7.4-10.4); Platelet Count Result 376 k/mm3 (150-375); Red Blood Count 3.85 M/mm3 (4.6-6.20); Red Cell Distribution Width 14.2 % (11.5-14.5); White Blood Count 8.3 K/mm3 (4.5-10.0)
[2023-08-18 09:06] LABS: Alanine Aminotransferase 57 U/L (6-50); Albumin Level 2.6 g/dL (3.5-5.1); Alkaline Phosphatase 158 U/L (38-126); Anion Gap 4 mmol/L (4-12); Aspartate Amino Transferase 80 U/L (17-59); Bilirubin,Total 0.4 mg/dL (0.2-1.3); Blood Urea Nitrogen 5 mg/dL (9-20); Calcium 7.8 mg/dL (8.4-10.2); Carbon Dioxide 24 mmol/L (22-30); Chloride 100 mmol/L (98-107); Estimated CRCL calculation 151 ml/min; Estimated Glomerular Filt Rate > 60; Glucose 84 mg/dL (65-110); Potassium 3.3 mmol/L (3.4-5.0); Sodium 128 mmol/L (137-145)
[2023-08-18 09:24] VITALS: O2SAT 94
--- NOTE | 2023-08-18 09:44 | WPDUROPN2 ---
Progress Note: A&P Assessment and Plan (1) Prostate cancer metastatic to bone: Code(s): C61 - Malignant neoplasm of prostate; C79.51 - Secondary malignant neoplasm of bone Status: Acute Assessment and Plan: High-volume castration sensitive metastatic prostate cancer. Treatment options discussed in detail with patient by Dr. Hollingsworth on 08/17/2023. At this time, patient desires to proceed with hospice care. Awaiting hospice meeting with family this afternoon. If anything changes and he decides not to pursue this route, will revisit ADT therapy. Subjective Subjective Date/Time Seen: 08/18/23 09:44 Interval history: Darryl is feeling fair today. He complains of low back pain that is only mildly bothersome at this time. He also reports poor appetite. Denies nausea, vomiting, fever, chills. Ricci catheter is draining clear yellow urine. Exam Narrative: General: Awake, alert, comfortable, no acute distress HEENT: Normocephalic, atraumatic, sclerae anicteric Respiratory: Normal respiratory effort, no accessory muscle use Abdomen: Nondistended, soft, nontender : Ricci catheter draining clear yellow urine Skin: Normal coloration, warm and dry Neurologic: No focal neuro deficits noted Psychiatric: Appropriate mood and affect, judgment and insight intact Objective Data Vital Signs Vital Signs: Vital Signs - 24 hr 08/17/23 10:00 08/17/23 12:00 08/17/23 14:00 Temperature 97.7 F Pulse Rate 77 62 Respiratory Rate 17 Blood Pressure 118/66 Pulse Oximetry 95 Oxygen Delivery Room Air 08/17/23 20:54 08/17/23 20:00 08/18/23 07:08 Temperature 97.7 F 97.8 F Pulse Rate 66 70 Respiratory Rate 16 16 Blood Pressure 129/72 139/70 Pulse Oximetry 92 93 Oxygen Delivery Room Air 08/18/23 09:24 Temperature Pulse Rate Respiratory Rate Blood Pressure Pulse Oximetry 94 Oxygen Delivery Room Air Intake/Output Intake/Output: Intake & Output 08/15/23 08/16/23 08/17/23 08/18/23 23:59 23:59 23:59 23:59 Intake Total 1050 2100 3097 100 Output Total 1600 1150 2450 Balance 8371 826 3405 -2350 Meds/Results Medications: Active Medications Generic Name Dose Route Start Last Admin Trade Name Freq PRN Reason Stop Dose Admin Hydrocodone Bitart/Acetaminophen 1 tab 08/15/23 21:51 08/17/23 04:07 Hydrocodone/Acetaminophen (*Crx) 5-325 Mg Tablet PO 1 tab Q4H PRN Administration Pain Rated 4-6 Albuterol/Ipratropium 3 ml 08/17/23 20:35 Ipratropium 0.5 Mg/Albuterol Sulfate 2.5 Mg Ampul.Neb 3 Ml INHALATION Q6HRT PRN Shortness Of Breath Clobetasol Propionate 1 applic 08/16/23 09:00 08/17/23 10:12 Clobetasol Propionate 0.05% Cream 15 Gm TOPICAL 1 applic DAILY SELWYN Administration Cyclobenzaprine HCl 5 mg 08/16/23 05:01 Cyclobenzaprine Hcl 5 Mg Tablet PO TID PRN muscle spasm Ceftriaxone Sodium 1 gm in 50 mls @ 100 mls/hr 08/16/23 21:00 08/17/23 22:05 Rocephin 1 Gm/Ns 50 Ml IVPB Infused Q24H SELWYN Infusion Azithromycin 500 mg in 250 mls @ 250 mls/hr 08/16/23 22:00 08/17/23 23:35 Zithromax IVPB Infused Q24H SELWYN Infusion Ibuprofen 400 mg 08/15/23 21:51 08/17/23 10:27 Ibuprofen 400 Mg Tablet PO 400 mg Q6H PRN Administration Mild Pain (1-3) or Fever Lidocaine 1 patch 08/16/23 09:00 08/17/23 10:12 Lidocaine 5% Patch TRANSDERM 1 patch DAILY SELWYN Administration Lorazepam 1 mg 08/17/23 14:12 Lorazepam Inj (*Crx) 2 Mg/Ml Vial IV PUSH Q6H PRN Anxiety Morphine Sulfate 2 mg 08/17/23 14:10 Morphine Sulfate (*Crx) 2 Mg/Ml Inj IV PUSH Q4H PRN Pain Rated 7-10 Ondansetron HCl 4 mg 08/15/23 21:51 Ondansetron Inj 4 Mg/2 Ml Vial IV PUSH Q4H PRN Nausea Pantoprazole Sodium 40 mg 08/16/23 09:00 08/17/23 10:11 Pantoprazole 40 Mg Tablet PO 40 mg QAM SELWYN Administration Triamcinolone Acetonide 1 applic 08/16/23 09:00 08/17/23 17:45
[2023-08-18] MEDS: PANTOPRAZOLE 40 MG TABLET PO (09:52)
[2023-08-18] MEDS: LIDOCAINE 5% PATCH 1 PATCH TRANSDERM (09:56)
[2023-08-18 11:16] VITALS: BMI 20.5
[2023-08-18] MEDS: HYDROcodone/acetaminophen (*CRX) 5-325 MG TABLET 1 TAB PO (12:34)
--- NOTE | 2023-08-18 13:26 | PM.DS ---
DS: Admitting Diagnosis Discharge Date 08/18/23 Admitting Diagnosis Back pain DS: Discharge Diagnosis Discharge Diagnosis (1) Sepsis: Code(s): A41.9 - Sepsis, unspecified organism Status: Acute (2) Acute hypoxic respiratory failure: Code(s): J96.01 - Acute respiratory failure with hypoxia Status: Acute (3) Right lower lobe pneumonia: Qualifiers: Pneumonia type: due to unspecified organism Qualified Code(s): J18.9 - Pneumonia, unspecified organism Code(s): J18.9 - Pneumonia, unspecified organism Status: Acute (4) Metastatic malignant neoplasm to prostate: Code(s): C79.82 - Secondary malignant neoplasm of genital organs Status: Acute (5) Hypokalemia: Code(s): E87.6 - Hypokalemia Status: Acute (6) Hyponatremia: Code(s): E87.1 - Hypo-osmolality and hyponatremia Status: Chronic DS: Summary Hospital Course Reason for hospitalization: 78yo male with HTN, CHF, COPD, and recent diagnosis of metastatic lytic bone lesions who presented to the ER via EMS from [facility] living with intractable back pain for 3 days.?? Please see H&P for details Hospital Course: Patient presents with complaints of pain but found to have HoTN, leukocytosis, confusion and hypoxia. CXR showing RLL PNA. Started on Rocephin and Azithromycin. Consider hospital acquired since was just discharged but he responded to current abx. UA clear.? BCx not collected before abx.Treated with IV fluids with good BP response. MAP 50-60 --> 70-80 range. MRSA screen negative. WBC normalized. Patient was hypoxic on admission requiring 2L. ABG 7.48/31/65 on 2L. Related to RLL PNA. He was easily weaned to room air. The patient was here originally on 08/06 for back pain and found to have widespread bony lesions on scans. A LN tissue biopsy performed with results now available showing poorly differentiated metastatic prostate adenocarcinoma. PSA>100. Urology consulted and appreciate their input. Urology had long discussions with dtr and patient about treatment options including hospice. Patient wishes to proceed with hospice care. Comfort measures. He did want to contnue the abx. Hospice consult. 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 He was discharged with plans to starting hospice care at the facility Status at Discharge Cognitive/behavioral status at discharge: stable Time Spent with Patient Time attestation: Total time spent providing and/or coordinating discharge services: 32 minutes Time spent: Greater than 30 minutes Exam Narrative: AF 97.8 139/70 70 16 94% ra Gen - NARD Chest - bibasilar rhonchi o/w clear CV - RRR S1/S2 Abd - Soft, protuberant, +BS - Ricci placed with clear yellow urine in the bag Ext - No pedal edema Psych - normal mood Skin - mottling noted possibly due to the cold room DS: Data Data Completed and Pending Labs on day of discharge: Labs from last 24 hours 08/18/23 08:28 WBC 8.3 RBC 3.85 L Hgb 10.7 L Hct 32.0 L MCV 83.1 MCH 27.8 MCHC 33.4 RDW 14.2 Plt Count 376 H MPV 8.3 Sodium 128 L Potassium 3.3 L Chloride 100 Carbon Dioxide 24 Anion Gap 4 L BUN 5 L D Creatinine 0.30 L Estim Creat Clear Calc 151 Estimated GFR > 60 Glucose 84 Calcium 7.8 L Total Bilirubin 0.4 AST 80 H ALT 57 H Alkaline Phosphatase 158 H Total Protein 6.0 L Albumin 2.6 L Discharge Plan Discharge Attending physician on discharge: Matt Colon Consulting providers: Fredrick Hollingsworth Discharging Clinician: Matt Colon Anticipated Discharge Date/Time: 08/18/23 13:33 Patient Disposition: [place] [facility] Activity: as tolerated Diet: regular Discharge Instructions: Routine Ricci care Rise slowly from a lying or sitting position. Pause before standing or walking. Hospice to follow at facility Follow-up with the provider at the facility. T
[2023-08-18 14:00] VITALS: BP 130/68; PULSE 70; RESP 16; TEMP 36.4; O2SAT 94
[2023-08-18 14:46] LABS: SARS-CoV-2 RNA PCR Negative (Negative)
[2023-08-19 01:53] LABS: Legionella pneumophila Ag Ur Not Detected (Not Detected)
[2023-08-21 17:14] LABS: Pneumococcal Antigen Urine Not Detected (Not Detected)
[2023-08-23 06:29] LABS: Testosterone Total 21 ng/dL (250-1100)
== END 2023-08-18 15:20 | disposition hospice, home (50) ==
LOC: ANHED 19:15 → ANH2MED 08-16
PROVIDERS: Urology; Admitting Provider Internal Medicine; Emergency Provider Student in an Organized Health Care Education/Training Program; PCP Nurse Practitioner; Visit Provider Internal Medicine
DX: A41.9 Sepsis, unspecified organism (principal); J18.9 Pneumonia, unspecified organism; J96.01 Acute respiratory failure with hypoxia; E87.6 Hypokalemia; E87.1 Hypo-osmolality and hyponatremia; I11.0 Hypertensive heart disease with heart failure; I50.9 Heart failure, unspecified; Z99.81 Dependence on supplemental oxygen; C61 Malignant neoplasm of prostate; C79.51 Secondary malignant neoplasm of bone; C77.9 Secondary and unspecified malignant neoplasm of lymph node, unspecified; J44.9 Chronic obstructive pulmonary disease, unspecified; J43.9 Emphysema, unspecified; D72.823 Leukemoid reaction; E87.3 Alkalosis; D64.9 Anemia, unspecified; Z11.52 Encounter for screening for COVID-19; E88.09 Other disorders of plasma-protein metabolism, not elsewhere classified; E43 Unspecified severe protein-calorie malnutrition; M54.9 Dorsalgia, unspecified; G89.29 Other chronic pain; Z68.41 Body mass index [BMI] 40.0-44.9, adult; R62.7 Adult failure to thrive; Z68.20 Body mass index [BMI] 20.0-20.9, adult; F41.8 Other specified anxiety disorders; E78.5 Hyperlipidemia, unspecified; F43.10 Post-traumatic stress disorder, unspecified; Z66 Do not resuscitate; Z87.891 Personal history of nicotine dependence; Z79.891 Long term (current) use of opiate analgesic; Z79.899 Other long term (current) drug therapy
CPT/HCPCS: 36415; 36600; 71046; 80048; 80053; 80307; 81003; 82550; 82805; 83735; 84153; 84295; 84403; 85025; 85027; 87449; 87635; 87637; 87641; 87899; 94640; 96361; 96365; 96366; 97162; 97165; 99285; A9270; G0378; J0456; J0696; J7030; J7040; J7120